=== PATIENT | female | born 1955 | race Caucasian/White ===

== ENCOUNTER 2022-11-07 21:36 | Emergency (ER) | payer OTHER ==
--- OUTSIDE RECORDS SUMMARY | 2022-11-07 21:43 | XMS REPORT | Continuity of Care Document ---
:1955 Author Organization [facility] t Address [address] [place] [address] Care Team Providers Name Role Phone Kayce Sotelo Attending Clinician Unavailable Lawrence Attending Clinician Unavailable Tate Longoria Attending Clinician [phone] CLAUS KING Attending Clinician Unavailable Cruz Durbin Attending Clinician Unavailable Lawrence Admitting Clinician Unavailable Physician, No Primary or Family Admitting Clinician Unavaila ble Payers Payer Name Policy Type Policy Effective Date Expiration Date Sour ce Number [facility] 2 [id number] [facility] MEDICARE B-[place]: [id number] 2021 [employer] 00:00:00 KARIN [place] [id number] 2022 [facility] 00:00:00 STAR (MEDICAID HMO) UMR [id number] AETNA 53 [id number] 2011 [facility] 00:00:00 [facility] AETNA 53 [id number] [facility] Problems Condition Condition Condition Status Onset Resolution Last Treating Co mments Source Name Details Category Date Date Treatment Clinician Date Osteoarthr Osteoarthr Problem Active A zalea itis of itis of 6-17 Orthope left knee Left Knee 00:00: dic joint Joint 00 Sports Medicin e 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 8-08 Or thope sthesis sthesis 00:00: dic 00 Sports Medicin e Prolapsed Prolapsed Problem Active Aza daniel lumbar Lumbar 8-08 Orthope interverte Interverte 00:00: di c bral disc bral Disc 00 Spor ts Medicin e Displaceme Displaceme Problem Active A zalea nt of nt of 8-08 Orthope lumbar Lumbar 00:00: dic interverte Interverte 00 Sp orts bral disc bral Disc 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 Myelopathy Carpal Carpal Problem Active 2014-10 Pam tunnel 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 00:00: dic 00 Sports Medicin e Osteoarthr Osteoarthr Problem Active 2014-10 A zalea osis of osis of 0-13 Orthope the the 00:00: dic carpometac Carpometac 00 Sp orts arpal arpal Medicin joint of Joint of e the thumb the Thumb 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 a bone cyst Bone Cyst 0-13 Orth ope 00:00: dic 00 Sports Medicin e Sleep Sleep Problem Active Pam apnea Apnea 7-27 Orthope 00:00: dic 00 Sports Medicin e Degenerati Degenerati Problem Active A zalea ve joint ve Joint 2-12 Orthop e disease of Disease of 00:00: di c hand Hand 00 Sports Medicin e Epicondyli Epicondyli Problem Active 2011-10 A zalea tis tis 0-11 Orthope 00:00: dic 00 Sports Medicin e Synovitis Synovitis Problem Active Aza daniel and and 9-20 Orthope tenosynovi Tenosynovi 00:00: di c tis tis 00 Sports Medicin e Ganglion Ganglion Problem Active Azale a of wrist of Wrist 9-20 Orthop e 00:00: dic 00 Sports Medicin e [id number] Bronchitis Problem Com mon [facility] - [facility] [id number] Anxiety Problem Common [facility] Allergic Non-season Problem Com mon rhinitis al [id number] Other Problem Common obesity Spirit due to - [facility] excess [facility] [id number] Body mass Problem Com mon index [facility] [BMI] - [facility] 34.0-34.9, [facility] [id number] Low back Problem Comm on pain Spirit [facility] [id number] Nausea Problem Common Spirit [facility] [id number] Mixed Problem Common hyperlipid [facility] emia [facility] [id number] Type 2 Problem Common diabetes [facility] mellitus - [facility] with [facility] Center long-term current use of insulin [id number] Mixed Problem Common stress and Spirit urge - [facility] urinary [facility] [id number] Productive Problem Com mon cough [facility] [id number] Other Problem Common chronic [facility] pain - [facility] [id number] Wheezing Problem Commo n [facility] [id number] Essential Problem Comm on hypertensi Spirit on [facility] [id number] Gastroesop Problem Co mmon hageal Spirit reflux - [facility] disease [facility] esophagiti Medica l s [place] [id number] 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[facility] major [facility] disorder, [facility] d whether recurrent [id number] Seasonal Problem Comm on allergic Spirit rhinitis, - [facility] unspecifie [facility] [id number] Upper Problem Common respirator Spirit y tract - [facility] infection, [facility] [place] Allergies, Adverse Reactions, Alerts Allergy Allergy Status Severity Reaction(s) Onset Inactive Treating Comm ents Source Name Type Date Date Clinician Penicill DA Active MO VOMITING/PAT HC A ins LUCINATION 06-23 Pearla n 00:00: d [facility] Sulfa DA Active MO HIVES AND [facility] (Sulfona EVEN PASSED 06-23 Pea rlan mide OUT 00:00: d [facility] codeine DA Active MO HALLUCINATE/ 2015-0 [facility] VOMITING 06-23 [place]lan 00:00: d 00 Medical Center penicill DA Active MO HIVES/HALLUC HC A in G INATION/VOMI 06-23 Pear swathi TING 00:00: d 00 [facility] meloxica DA Active MO 2014-0 [facility] m 06-23 [place] 00:00: d 00 Medical Center meloxica DA Active MO FEELS [facility] m WEIRD/VOMITI 06-23 Pear swathi NG 00:00: d 00 Medical Center Mobic Allergy Active Pam to 05 Orthope substanc 00:00: dic e 00 Sports Medicin e Codeine Allergy Active Pam to 07-12 Orthope substanc 00:00: dic e 00 Sports Medicin e Macrodan Allergy Active Pam tin to 07-12 Orthope substanc 00:00: dic e 00 Sports Medicin e PENICILL Allergy Active Pam IN to 07-12 Orthope substanc 00:00: dic e 00 Sports Medicin e SULFA Allergy Active Pam (SULFONA to 07-12 Orthope MIDE substanc 00:00: dic ANTIBIOT e 00 Sports ICS) Medicin e nitrofur nitrofur Active Unknown Commo n antoin antoin [facility] codeine codeine Active Hallucinatio Co mmon n [facility] Sulfona Sulfona Active Unknown Commo n mide mide Spirit (substan ([facility] ce) ce) [facility] penicill penicill Active nausea and Co mmon amine amine vomiting [facility] meloxica meloxica Active nausea and Co mmon m m vomiting [facility] Social History Social Habit Start Date Stop Date Quantity Comments Source History of Tobacco Use Co mmon [facility] Sex Assigned At Com mon [facility] Smoking Status Start Date Stop Date Source Never Smoker Common [facility] Medications Ordered Filled Start Stop Current Ordering Indication Dosage Frequency Signature Comments Components Source Medication Medication Date Date Medication? Clinician (SIG) Name Name methylPREDN methylPREDN 2021- No QD methylPRED ISolone 4 ISolone 4 03-31 06-14 NISolone 4 MG MG 00:00: 00:00 MG 00 :00 Azithromyci Azithromyci 2-0 2- No QD Azithromyc n 250 MG n 250 MG 03-31 in 250 MG 00:00: 00:00 00 :00 Livalo 2 MG Livalo 2 MG 2020-0 No 1{table QD Livalo 2 9-16 t} MG 00:00: 00 Sertraline Sertraline 2020-0 No 1{table QD Sertraline HCl 50 MG HCl 50 MG 9-16 t} HCl 50 MG 00:00: 00 Sertraline Sertraline 2020-0 No 1{table QD Sertraline HCl 50 MG HCl 50 MG 9-16 t} HCl 50 MG 00:00: 00 Livalo 2 MG Livalo 2 MG 2020-0 No 1{table QD Livalo 2 9-16 t} MG 00:00: 00 Sertraline Sertraline 2020-0 No 1{table QD Sertraline HCl 50 MG HCl 50 MG 9-16 t} HCl 50 MG 00:00: 00 Livalo 2 MG Livalo 2 MG 2020-0 No 1{table QD Livalo 2 9-16 t} MG 00:00: 00 Sertraline Sertraline 2020-0 No 1{table QD HCl 50 MG HCl 50 MG 9-16 t} 00:00: 00 Livalo 2 MG Livalo 2 MG 2020-0 No 1{table QD 9-16 t} 00:00: 00 Losartan Losartan 2020-0 No 1{table QD Losartan Potassium Potassium 7-22 t} Potassium 25 MG 25 MG 00:00: 25 MG 00 Losartan Losartan 2020-0 No 1{table QD Losartan Potassium Potassium 7-22 t} Potassium 25 MG 25 MG 00:00: 25 MG 00 Omeprazole Omeprazole 2020-0 No QD Omeprazole 20 MG 20 MG 6-30 20 MG 00:00: 00 Omeprazole Omeprazole 2020-0 No QD Omeprazole 20 MG 20 MG 6-30 20 MG 00:00: 00 Omeprazole Omeprazole 2020-0 No QD Omeprazole 20 MG 20 MG 6-30 20 MG 00:00: 00 Omeprazole Omeprazole 2020-0 No QD Omeprazole 20 MG 20 MG 6-30 20 MG 00:00: 00 Omeprazole Omeprazole 2020-0 No QD Omeprazole 20 MG 20 MG 6-30 20 MG 00:00: 00 Omeprazole Omeprazole 2020-0 No QD Omeprazole 20 MG 20 MG 6-30 20 MG 00:00: 00 Omeprazole Omeprazole 1-0 No QD Omeprazole 20 MG 20 MG 6-30 20 MG 00:00: 00 Omeprazole Omeprazole 1-0 No QD 20 MG 20 MG 6-30 00:00: 00 Omeprazole Omeprazole 1-0 No QD Omeprazole 20 MG 20 MG 6-30 20 MG 00:00: 00 Omeprazole Omeprazole 1-0 No QD Omeprazole 20 MG 20 MG 6-30 20 MG 00:00: 00 Omeprazole Omeprazole 2020-0 No QD Omeprazole 20 MG 20 MG 6-30 20 MG 00:00: 00 Omeprazole Omeprazole 1-0 No QD Omeprazole 20 MG 20 MG 6-30 20 MG 00:00: 00 Omeprazole Omeprazole 1-0 No QD Omeprazole 20 MG 20 MG 6-30 20 MG 00:00: 00 Omeprazole Omeprazole 2020-0 No QD Omeprazole 20 MG 20 MG 6-30 20 MG 00:00: 00 Omeprazole Omeprazole 1-0 No QD Omeprazole 20 MG 20 MG 6-30 20 MG 00:00: 00 Omeprazole Omeprazole 1-0 No QD Omeprazole 20 MG 20 MG 6-30 20 MG 00:00: 00 Omeprazole Omeprazole 1-0 No QD Omeprazole 20 MG 20 MG 6-30 20 MG 00:00: 00 Omeprazole Omeprazole 1-0 No QD Omeprazole 20 MG 20 MG 6-30 20 MG 00:00: 00 Omeprazole Omeprazole 1-0 No QD Omeprazole 20 MG 20 MG 6-30 20 MG 00:00: 00 Omeprazole Omeprazole 1-0 No QD Omeprazole 20 MG 20 MG 6-30 20 MG 00:00: 00 Promethazin Promethazin 2020- No 10{ml_a TID Promethazi e HCl 6.25 e HCl 6.25 630 07-07 s_neede ne HCl MG/5ML MG/5ML 00:00: 00:00 d} 6.25 00 :00 MG/5ML Promethazin Promethazin 0 2020- No 10{ml_a TID Promethazi e HCl 6.25 e HCl 6.25 6-30 07- s_neede ne HCl MG/5ML MG/5ML 00:00: 00:00 d} 6.25 00 :00 MG/5ML Azithromyci Azithromyci 0 2020- No QD Azithromyc n 250 MG n 250 MG 04-22 in 250 MG 00:00: 00:00 00 :00 Azithromyci Azithromyci 2020- No QD Azithromyc n 250 MG n 250 MG 04-22 in 250 MG 00:00: 00:00 00 :00 Cefdinir Cefdinir 2020- No Cefdinir 300 MG 300 MG 03-30 300 MG 00:00: 00:00 00 :00 Cefdinir Cefdinir 2020- No Cefdinir 300 MG 300 MG 03-30 300 MG 00:00: 00:00 00 :00 Promethazin Promethazin 2020- No 10{ml_a TID Promethazi e HCl 6.25 e HCl 6.25 6- s_neede ne HCl MG/5ML MG/5ML 00:00: 00:00 d} 6.25 00 :00 MG/5ML Ondansetron Ondansetron 2020-0 No 1{table Ondansetro HCl 4 MG HCl 4 MG 5-26 t} n HCl 4 MG 00:00: 00 Lisinopril Lisinopril 2020-0 No 1{table QD Lisinopril 5 MG 5 MG 5-26 t} 5 MG 00:00: 00 Lisinopril Lisinopril 2020-0 No 1{table QD Lisinopril 5 MG 5 MG 5-26 t} 5 MG 00:00: 00 Ondansetron Ondansetron 2020-0 No 1{table Ondansetro HCl 4 MG HCl 4 MG 5-26 t} n HCl 4 MG 00:00: 00 Lisinopril Lisinopril 2020-0 No 1{table QD Lisinopril 5 MG 5 MG 5-26 t} 5 MG 00:00: 00 Ondansetron Ondansetron 2020-0 No 1{table Ondansetro HCl 4 MG HCl 4 MG 5-26 t} n HCl 4 MG 00:00: 00 Ondansetron Ondansetron 1-0 No 1{table Ondansetro HCl 4 MG HCl 4 MG 5-26 t} n HCl 4 MG 00:00: 00 Ondansetron Ondansetron 1-0 No 1{table Ondansetro HCl 4 MG HCl 4 MG 5-26 t} n HCl 4 MG 00:00: 00 Ondansetron Ondansetron 1-0 No 1{table Ondansetro HCl 4 MG HCl 4 MG 5-26 t} n HCl 4 MG 00:00: 00 Ondansetron Ondansetron 1-0 No 1{table Ondansetro HCl 4 MG HCl 4 MG 5-26 t} n HCl 4 MG 00:00: 00 Ondansetron Ondansetron 1-0 No 1{table Ondansetro HCl 4 MG HCl 4 MG 5-26 t} n HCl 4 MG 00:00: 00 Ondansetron Ondansetron 1-0 No 1{table HCl 4 MG HCl 4 MG 5-26 t} 00:00: 00 Ondansetron Ondansetron 1-0 No 1{table Ondansetro HCl 4 MG HCl 4 MG 5-26 t} n HCl 4 MG 00:00: 00 Ondansetron Ondansetron 1-0 No 1{table Ondansetro HCl 4 MG HCl 4 MG 5-26 t} n HCl 4 MG 00:00: 00 Ondansetron Ondansetron 1-0 No 1{table Ondansetro HCl 4 MG HCl 4 MG 5-26 t} n HCl 4 MG 00:00: 00 Ondansetron Ondansetron 2021-0 No 1{table Ondansetro HCl 4 MG HCl 4 MG 5-26 t} n HCl 4 MG 00:00: 00 Ondansetron Ondansetron 2021-0 No 1{table Ondansetro HCl 4 MG HCl 4 MG 5-26 t} n HCl 4 MG 00:00: 00 Ondansetron Ondansetron 2021-0 No 1{table Ondansetro HCl 4 MG HCl 4 MG 5-26 t} n HCl 4 MG 00:00: 00 Ondansetron Ondansetron 2020-0 No 1{table Ondansetro HCl 4 MG HCl 4 MG 5-26 t} n HCl 4 MG 00:00: 00 Ondansetron Ondansetron 2020-0 No 1{table Ondansetro HCl 4 MG HCl 4 MG 5-26 t} n HCl 4 MG 00:00: 00 Ondansetron Ondansetron 2020-0 No 1{table Ondansetro HCl 4 MG HCl 4 MG 5-26 t} n HCl 4 MG 00:00: 00 Ondansetron Ondansetron 2020-0 No 1{table Ondansetro HCl 4 MG HCl 4 MG 5-26 t} n HCl 4 MG 00:00: 00 Ondansetron Ondansetron 2020-0 No 1{table Ondansetro HCl 4 MG HCl 4 MG 5-26 t} n HCl 4 MG 00:00: 00 Ondansetron Ondansetron 2020-0 No 1{table Ondansetro HCl 4 MG HCl 4 MG 5-26 t} n HCl 4 MG 00:00: 00 Ondansetron Ondansetron 2020-0 No 1{table Ondansetro HCl 4 MG HCl 4 MG 5-26 t} n HCl 4 MG 00:00: 00 Lisinopril Lisinopril 2020- No 1{table QD Lisinopril 5 MG 5 MG 5-26 t} 5 MG 00:00: 00 diclofenac diclofenac 2017-10 No diclofenac Pam sodium 75 sodium 75 1-10 sodium 75 Orthope mg mg 00:00: mg dic tablet,mikal tablet,mikal 00 tablet,del Sports yed release yed release ayed M edicin TAKE ONE TAKE ONE release e TABLET BY TABLET BY TAKE ONE MOUTH TWICE MOUTH TWICE TABLET BY A DAY A DAY MOUTH TWICE A DAY diclofenac diclofenac 2017-10 No diclofenac Pam sodium 75 sodium 75 1-10 sodium 75 Orthope mg mg 00:00: mg dic tablet,mikal tablet,mikal 00 tablet,del Sports yed release yed release ayed M edicin TAKE ONE TAKE ONE release e TABLET BY TABLET BY TAKE ONE MOUTH TWICE MOUTH TWICE TABLET BY A DAY A DAY MOUTH TWICE A DAY Medrol 4 mg Medrol 4 mg No Medrol 4 Pam tablet TAKE tablet TAKE 8-08 mg tablet Orthope TABLETS TABLETS 00:00: TAKE d ic DIRECTED DIRECTED 00 TABLETS S ports DIRECTED Medicin e Mobic 7.5 Mobic 7.5 No Mobic 7.5 Pam mg tablet mg tablet 8-08 mg tablet Orthope TAKE 1 TAKE 1 00:00: TAKE 1 dic TABLET BID TABLET BID 00 TABLET BID Sports WITH FOOD WITH FOOD WITH FOOD Medicin AFTER AFTER AFTER e STERIODS STERIODS STERIODS ARE ARE ARE COMPLETED COMPLETED COMPLETED Medrol 4 mg Medrol 4 mg No Medrol 4 Pma tablet TAKE tablet TAKE 8-08 mg tablet Orthope TABLETS TABLETS 00:00: TAKE d ic DIRECTED DIRECTED 00 TABLETS S ports DIRECTED Medicin e Mobic 7.5 Mobic 7.5 No Mobic 7.5 Pam mg tablet mg tablet 8-08 mg tablet Orthope TAKE 1 TAKE 1 00:00: TAKE 1 dic TABLET BID TABLET BID 00 TABLET BID Sports WITH FOOD WITH FOOD WITH FOOD Medicin AFTER AFTER AFTER e STERIODS STERIODS STERIODS ARE ARE ARE COMPLETED COMPLETED COMPLETED Nexium Nexium No Nexium Pam Packet 10 Packet 10 7-23 Packet 10 Orthope mg granules mg granules 00:00: mg dic delayed delayed 00 granules Sport s release for release for delayed Medicin susp RX by susp RX by release e other other MD for susp RX by other Nextrino Nexium No Nexium Pam Packet 10 Packet 10 7-23 Packet 10 Orthope mg granules mg granules 00:00: mg dic delayed delayed 00 granules Sport s release for release for delayed Medicin susp RX by susp RX by release e other MD noim TINSLEY for susp RX by other Livalo 1 mg Livalo 1 mg No Livalo 1 Pam tablet RX tablet RX 9-19 mg tablet Orthope by other MD by other 00:00: RX by dic 00 other MD Edil english metaxalone metaxalone No metaxalone Pam 800 mg 800 mg 9-19 800 mg Orthope tablet RX tablet RX 00:00: tablet RX dic by other MD by nomi TINSLEY 00 by other Edil english Livalo 1 mg Livalo 1 mg 2012-0 No Livalo 1 Pam tablet RX tablet RX 9-19 mg tablet Orthope by other MD by other MD 00:00: RX by dic 00 other MD Edil english metaxalone metaxalone 0 No metaxalone Pam 800 mg 800 mg 9-19 800 mg Orthope tablet RX tablet RX 00:00: tablet RX dic by other MD by other 00 by other Sports MD Kianna english Acetaminoph Acetaminoph No Acetaminop en en hen NexIUM 24HR NexIUM 24HR No 1{capsu QD NexIUM 20 MG 20 MG le} 24HR 20 MG Biotin 5000 Biotin 5000 No Biotin 5000 Oxybutynin Oxybutynin No 1{table QD Oxybutynin Chloride ER Chloride ER t} Chloride 10 MG 10 MG ER 10 MG Albuterol Albuterol No 2{puff_ 6xD Albuterol Sulfate 108 Sulfate 108 as_need Sulfate (90 Base) (90 Base) ed} 108 (90 MCG/ACT MCG/ACT Base) MCG/ACT Magnesium Magnesium No Magnesium 400 MG 400 MG 400 MG hydroCHLORO hydroCHLORO No 1{table QD hydroCHLOR thiazide 25 thiazide 25 t_in_th Othiazide MG MG e_morni 25 MG ng} Metoprolol Metoprolol No 1{table QD Metoprolol Succinate Succinate t} Succinate ER 100 MG ER 100 MG ER 100 MG Benzonatate Benzonatate No 1{capsu TID Benzonatat 100 MG 100 MG le_as_n e 100 MG eeded} Sertraline Sertraline No 1{table QD Sertraline HCl 100 MG HCl 100 MG t} HCl 100 MG Elderberry Elderberry No Elderberry Cyclobenzap Cyclobenzap No 1{table Cyclobenza rine HCl 10 rine HCl 10 t_at_be marcos HCl MG MG dtime_a 10 MG s_neede d} metFORMIN metFORMIN No 1{table BID metFORMIN HCl 500 MG HCl 500 MG t_with_ HCl 500 MG a_meal} Zinc 50 MG Zinc 50 MG No 1{table QD Zinc 50 MG t} Simvastatin Simvastatin No 1{table QD Simvastati 20 MG 20 MG t_in_th n 20 MG e_eveni ng} Vitamin C Vitamin C No 1{table QD Vitamin C 500 MG 500 MG t} 500 MG Cyclobenzap Cyclobenzap No 1{table Cyclobenza rine HCl 10 rine HCl 10 t_at_be marcos HCl MG MG dtime_a 10 MG s_neede d} Vitamin C Vitamin C No 1{table QD Vitamin C 500 MG 500 MG t} 500 MG Zinc 50 MG Zinc 50 MG No 1{table QD Zinc 50 MG t} metFORMIN metFORMIN No 1{table BID metFORMIN HCl 500 MG HCl 500 MG t_with_ HCl 500 MG a_meal} Albuterol Albuterol No 2{puff_ 6xD Albuterol Sulfate 108 Sulfate 108 as_need Sulfate (90 Base) (90 Base) ed} 108 (90 MCG/ACT MCG/ACT Base) MCG/ACT Metoprolol Metoprolol No 1{table QD Metoprolol Succinate Succinate t} Succinate ER 100 MG ER 100 MG ER 100 MG hydroCHLORO hydroCHLORO No 1{table QD hydroCHLOR thiazide 25 thiazide 25 t_in_th Othiazide MG MG e_morni 25 MG ng} Acetaminoph Acetaminoph No Acetaminop en en hen Elderberry Elderberry No Elderberry Biotin 5000 Biotin 5000 No Biotin 5000 Sertraline Sertraline No 1{table QD Sertraline HCl 100 MG HCl 100 MG t} HCl 100 MG Benzonatate Benzonatate No 1{capsu TID Benzonatat 100 MG 100 MG le_as_n e 100 MG eeded} Magnesium Magnesium No Magnesium 400 MG 400 MG 400 MG Cyclobenzap Cyclobenzap No 1{table Cyclobenza rine HCl 10 rine HCl 10 t_at_be marcos HCl MG MG dtime_a 10 MG s_neede d} Vitamin C Vitamin C No 1{table QD Vitamin C 500 MG 500 MG t} 500 MG Zinc 50 MG Zinc 50 MG No 1{table QD Zinc 50 MG t} metFORMIN metFORMIN No 1{table BID metFORMIN HCl 500 MG HCl 500 MG t_with_ HCl 500 MG a_meal} Albuterol Albuterol No 2{puff_ 6xD Albuterol Sulfate 108 Sulfate 108 as_need Sulfate (90 Base) (90 Base) ed} 108 (90 MCG/ACT MCG/ACT Base) MCG/ACT Metoprolol Metoprolol No 1{table QD Metoprolol Succinate Succinate t} Succinate ER 100 MG ER 100 MG ER 100 MG hydroCHLORO hydroCHLORO No 1{table QD hydroCHLOR thiazide 25 thiazide 25 t_in_th Othiazide MG MG e_morni 25 MG ng} Acetaminoph Acetaminoph No Acetaminop en en hen Elderberry Elderberry No Elderberry Biotin 5000 Biotin 5000 No Biotin 5000 Sertraline Sertraline No 1{table QD Sertraline HCl 100 MG HCl 100 MG t} HCl 100 MG Benzonatate Benzonatate No 1{capsu TID Benzonatat 100 MG 100 MG le_as_n e 100 MG eeded} Magnesium Magnesium No Magnesium 400 MG 400 MG 400 MG Vitamin C Vitamin C No 1{table QD Vitamin C 500 MG 500 MG t} 500 MG Zinc 50 MG Zinc 50 MG No 1{table QD Zinc 50 MG t} Albuterol Albuterol No 2{puff_ 6xD Albuterol Sulfate 108 Sulfate 108 as_need Sulfate (90 Base) (90 Base) ed} 108 (90 MCG/ACT MCG/ACT Base) MCG/ACT metFORMIN metFORMIN No 1{table BID metFORMIN HCl 500 MG HCl 500 MG t_with_ HCl 500 MG a_meal} hydroCHLORO hydroCHLORO No 1{table QD hydroCHLOR thiazide 25 thiazide 25 t_in_th Othiazide MG MG e_morni 25 MG ng} Metoprolol Metoprolol No 1{table QD Metoprolol Succinate Succinate t} Succinate ER 100 MG ER 100 MG ER 100 MG Acetaminoph Acetaminoph No Acetaminop en en hen Elderberry Elderberry No Elderberry Biotin 5000 Biotin 5000 No Biotin 5000 Magnesium Magnesium No Magnesium 400 MG 400 MG 400 MG Sertraline Sertraline No 1{table QD Sertraline HCl 100 MG HCl 100 MG t} HCl 100 MG Benzonatate Benzonatate No 1{capsu TID Benzonatat 100 MG 100 MG le_as_n e 100 MG eeded} Cyclobenzap Cyclobenzap No 1{table Cyclobenza rine HCl 10 rine HCl 10 t_at_be marcos HCl MG MG dtime_a 10 MG s_neede d} Vitamin C Vitamin C No 1{table QD Vitamin C 500 MG 500 MG t} 500 MG Zinc 50 MG Zinc 50 MG No 1{table QD Zinc 50 MG t} Albuterol Albuterol No 2{puff_ 6xD Albuterol Sulfate 108 Sulfate 108 as_need Sulfate (90 Base) (90 Base) ed} 108 (90 MCG/ACT MCG/ACT Base) MCG/ACT metFORMIN metFORMIN No 1{table BID metFORMIN HCl 500 MG HCl 500 MG t_with_ HCl 500 MG a_meal} Metoprolol Metoprolol No 1{table QD Metoprolol Succinate Succinate t} Succinate ER 100 MG ER 100 MG ER 100 MG hydroCHLORO hydroCHLORO No 1{table QD hydroCHLOR thiazide 25 thiazide 25 t_in_th Othiazide MG MG e_morni 25 MG ng} Acetaminoph Acetaminoph No Acetaminop en en hen Elderberry Elderberry No Elderberry Biotin 5000 Biotin 5000 No Biotin 5000 Magnesium Magnesium No Magnesium 400 MG 400 MG 400 MG Sertraline Sertraline No 1{table QD Sertraline HCl 100 MG HCl 100 MG t} HCl 100 MG Benzonatate Benzonatate No 1{capsu TID Benzonatat 100 MG 100 MG le_as_n e 100 MG eeded} Cyclobenzap Cyclobenzap No 1{table Cyclobenza rine HCl 10 rine HCl 10 t_at_be marcos HCl MG MG dtime_a 10 MG s_neede d} Vitamin C Vitamin C No 1{table QD Vitamin C 500 MG 500 MG t} 500 MG Diazepam 5 Diazepam 5 No QD Diazepam 5 MG MG MG metFORMIN metFORMIN No metFORMIN HCl 500 MG HCl 500 MG HCl 500 MG Metoprolol Metoprolol No 1{table QD Metoprolol Succinate Succinate t} Succinate ER 100 MG ER 100 MG ER 100 MG Losartan Losartan No 1{table QD Losartan Potassium Potassium t} Potassium 25 MG 25 MG 25 MG Magnesium Magnesium No Magnesium 400 MG 400 MG 400 MG Cyclobenzap Cyclobenzap No 1{table Cyclobenza rine HCl 10 rine HCl 10 t_at_be marcos HCl MG MG dtime_a 10 MG s_neede d} hydrOXYzine hydrOXYzine No 1{table TID hydrOXYzin HCl 50 MG HCl 50 MG t_as_ne e HCl 50 eded} MG Zinc 50 MG Zinc 50 MG No 1{table QD Zinc 50 MG t} Elderberry Elderberry No Elderberry Biotin 5000 Biotin 5000 No Biotin 5000 NexIUM 24HR NexIUM 24HR No 1{capsu QD NexIUM 20 MG 20 MG le} 24HR 20 MG Albuterol Albuterol No 2{puff_ 6xD Albuterol Sulfate 108 Sulfate 108 as_need Sulfate (90 Base) (90 Base) ed} 108 (90 MCG/ACT MCG/ACT Base) MCG/ACT Acetaminoph Acetaminoph No Acetaminop en en hen Benzonatate Benzonatate No 1{capsu TID Benzonatat 100 MG 100 MG le_as_n e 100 MG eeded} hydroCHLORO hydroCHLORO No 1{table QD hydroCHLOR thiazide 25 thiazide 25 t_in_th Othiazide MG MG e_morni 25 MG ng} Oxybutynin Oxybutynin No 1{table QD Oxybutynin Chloride ER Chloride ER t} Chloride 10 MG 10 MG ER 10 MG Sertraline Sertraline No 1{table QD Sertraline HCl 100 MG HCl 100 MG t} HCl 100 MG Cyclobenzap Cyclobenzap No 1{table Cyclobenza rine HCl 10 rine HCl 10 t_at_be marcos HCl MG MG dtime_a 10 MG s_neede d} Zinc 50 MG Zinc 50 MG No 1{table QD Zinc 50 MG t} Biotin 5000 Biotin 5000 No Biotin 5000 Metoprolol Metoprolol No 1{table QD Metoprolol Succinate Succinate t} Succinate ER 100 MG ER 100 MG ER 100 MG Elderberry Elderberry No Elderberry Albuterol Albuterol No 2{puff_ 6xD Albuterol Sulfate 108 Sulfate 108 as_need Sulfate (90 Base) (90 Base) ed} 108 (90 MCG/ACT MCG/ACT Base) MCG/ACT NexIUM 24HR NexIUM 24HR No 1{capsu QD NexIUM 20 MG 20 MG le} 24HR 20 MG hydroCHLORO hydroCHLORO No 1{table QD hydroCHLOR thiazide 25 thiazide 25 t_in_th Othiazide MG MG e_morni 25 MG ng} Benzonatate Benzonatate No 1{capsu TID Benzonatat 100 MG 100 MG le_as_n e 100 MG eeded} Losartan Losartan No 1{table QD Losartan Potassium Potassium t} Potassium 25 MG 25 MG 25 MG hydrOXYzine hydrOXYzine No 1{table TID hydrOXYzin HCl 50 MG HCl 50 MG t_as_ne e HCl 50 eded} MG Vitamin C Vitamin C No 1{table QD Vitamin C 500 MG 500 MG t} 500 MG Sertraline Sertraline No 1{table QD Sertraline HCl 100 MG HCl 100 MG t} HCl 100 MG metFORMIN metFORMIN No metFORMIN HCl 500 MG HCl 500 MG HCl 500 MG Diazepam 5 Diazepam 5 No QD Diazepam 5 MG MG MG Acetaminoph Acetaminoph No Acetaminop en en hen Magnesium Magnesium No Magnesium 400 MG 400 MG 400 MG Oxybutynin Oxybutynin No 1{table QD Oxybutynin Chloride ER Chloride ER t} Chloride 10 MG 10 MG ER 10 MG Zinc 50 MG Zinc 50 MG No 1{table QD Zinc 50 MG t} Oxybutynin Oxybutynin No 1{table QD Oxybutynin Chloride ER Chloride ER t} Chloride 10 MG 10 MG ER 10 MG Biotin 5000 Biotin 5000 No Biotin 5000 Metoprolol Metoprolol No 1{table QD Metoprolol Succinate Succinate t} Succinate ER 100 MG ER 100 MG ER 100 MG Elderberry Elderberry No Elderberry Albuterol Albuterol No 2{puff_ 6xD Albuterol Sulfate 108 Sulfate 108 as_need Sulfate (90 Base) (90 Base) ed} 108 (90 MCG/ACT MCG/ACT Base) MCG/ACT NexIUM 24HR NexIUM 24HR No 1{capsu QD NexIUM 20 MG 20 MG le} 24HR 20 MG hydroCHLORO hydroCHLORO No 1{table QD hydroCHLOR thiazide 25 thiazide 25 t_in_th Othiazide MG MG e_morni 25 MG ng} Benzonatate Benzonatate No 1{capsu TID Benzonatat 100 MG 100 MG le_as_n e 100 MG eeded} Losartan Losartan No 1{table QD Losartan Potassium Potassium t} Potassium 25 MG 25 MG 25 MG hydrOXYzine hydrOXYzine No 1{table TID hydrOXYzin HCl 50 MG HCl 50 MG t_as_ne e HCl 50 eded} MG Sertraline Sertraline No 1{table QD Sertraline HCl 100 MG HCl 100 MG t} HCl 100 MG Cyclobenzap Cyclobenzap No 1{table Cyclobenza rine HCl 10 rine HCl 10 t_at_be marcos HCl MG MG dtime_a 10 MG s_neede d} metFORMIN metFORMIN No metFORMIN HCl 500 MG HCl 500 MG HCl 500 MG Diazepam 5 Diazepam 5 No QD Diazepam 5 MG MG MG Acetaminoph Acetaminoph No Acetaminop en en hen Magnesium Magnesium No Magnesium 400 MG 400 MG 400 MG Vitamin C Vitamin C No 1{table QD Vitamin C 500 MG 500 MG t} 500 MG Zinc 50 MG Zinc 50 MG No 1{table QD t} Oxybutynin Oxybutynin No 1{table QD Chloride ER Chloride ER t} 10 MG 10 MG Biotin 5000 Biotin 5000 No Metoprolol Metoprolol No 1{table QD Succinate Succinate t} ER 100 MG ER 100 MG Elderberry Elderberry No Albuterol Albuterol No 2{puff_ 6xD Sulfate 108 Sulfate 108 as_need (90 Base) (90 Base) ed} MCG/ACT MCG/ACT NexIUM 24HR NexIUM 24HR No 1{capsu QD 20 MG 20 MG le} hydroCHLORO hydroCHLORO No 1{table QD thiazide 25 thiazide 25 t_in_th MG MG e_morni ng} Benzonatate Benzonatate No 1{capsu TID 100 MG 100 MG le_as_n eeded} Losartan Losartan No 1{table QD Potassium Potassium t} 25 MG 25 MG hydrOXYzine hydrOXYzine No 1{table TID HCl 50 MG HCl 50 MG t_as_ne eded} Sertraline Sertraline No 1{table QD HCl 100 MG HCl 100 MG t} Cyclobenzap Cyclobenzap No 1{table rine HCl 10 rine HCl 10 t_at_be MG MG dtime_a s_neede d} metFORMIN metFORMIN No HCl 500 MG HCl 500 MG Diazepam 5 Diazepam 5 No QD MG MG Acetaminoph Acetaminoph No en en Magnesium Magnesium No 400 MG 400 MG Vitamin C Vitamin C No 1{table QD 500 MG 500 MG t} Vitamin C Vitamin C No 1{table QD Vitamin C 500 MG 500 MG t} 500 MG hydrOXYzine hydrOXYzine No 1{table TID hydrOXYzin HCl 50 MG HCl 50 MG t_as_ne e HCl 50 eded} MG Diazepam 5 Diazepam 5 No QD Diazepam 5 MG MG MG NexIUM 24HR NexIUM 24HR No 1{capsu QD NexIUM 20 MG 20 MG le} 24HR 20 MG Biotin 5000 Biotin 5000 No Biotin 5000 Zinc 50 MG Zinc 50 MG No 1{table QD Zinc 50 MG t} Livalo 2 MG Livalo 2 MG No 1{table QD Livalo 2 t} MG Elderberry Elderberry No Elderberry Benzonatate Benzonatate No 1{capsu TID Benzonatat 100 MG 100 MG le_as_n e 100 MG eeded} Acetaminoph Acetaminoph No Acetaminop en en hen hydroCHLORO hydroCHLORO No 1{table QD hydroCHLOR thiazide 25 thiazide 25 t_in_th Othiazide MG MG e_morni 25 MG ng} Cyclobenzap Cyclobenzap No 1{table Cyclobenza rine HCl 10 rine HCl 10 t_at_be marcos HCl MG MG dtime_a 10 MG s_neede d} Albuterol Albuterol No 2{puff_ 6xD Albuterol Sulfate 108 Sulfate 108 as_need Sulfate (90 Base) (90 Base) ed} 108 (90 MCG/ACT MCG/ACT Base) MCG/ACT Losartan Losartan No 1{table QD Losartan Potassium Potassium t} Potassium 25 MG 25 MG 25 MG Oxybutynin Oxybutynin No 1{table QD Oxybutynin Chloride ER Chloride ER t} Chloride 10 MG 10 MG ER 10 MG Sertraline Sertraline No 1{table QD Sertraline HCl 50 MG HCl 50 MG t} HCl 50 MG Magnesium Magnesium No Magnesium 400 MG 400 MG 400 MG metFORMIN metFORMIN No metFORMIN HCl 500 MG HCl 500 MG HCl 500 MG Metoprolol Metoprolol No 1{table QD Metoprolol Succinate Succinate t} Succinate ER 100 MG ER 100 MG ER 100 MG Cyclobenzap Cyclobenzap No 1{table Cyclobenza rine HCl 10 rine HCl 10 t_at_be marcos HCl MG MG dtime_a 10 MG s_neede d} Sertraline Sertraline No 1{table QD Sertraline HCl 100 MG HCl 100 MG t} HCl 100 MG Esomeprazol Esomeprazol No Esomeprazo e Magnesium e Magnesium le 20 MG 20 MG Magnesium 20 MG hydrOXYzine hydrOXYzine No hydrOXYzin HCl 50 MG HCl 50 MG e HCl 50 MG Vitamin C Vitamin C No 1{table QD Vitamin C 500 MG 500 MG t} 500 MG hydrOXYzine hydrOXYzine No 1{table TID hydrOXYzin HCl 50 MG HCl 50 MG t_as_ne e HCl 50 eded} MG Diazepam 5 Diazepam 5 No QD Diazepam 5 MG MG MG NexIUM 24HR NexIUM 24HR No 1{capsu QD NexIUM 20 MG 20 MG le} 24HR 20 MG Biotin 5000 Biotin 5000 No Biotin 5000 Zinc 50 MG Zinc 50 MG No 1{table QD Zinc 50 MG t} Livalo 2 MG Livalo 2 MG No 1{table QD Livalo 2 t} MG Elderberry Elderberry No Elderberry Benzonatate Benzonatate No 1{capsu TID Benzonatat 100 MG 100 MG le_as_n e 100 MG eeded} Acetaminoph Acetaminoph No Acetaminop en en hen hydroCHLORO hydroCHLORO No 1{table QD hydroCHLOR thiazide 25 thiazide 25 t_in_th Othiazide MG MG e_morni 25 MG ng} Cyclobenzap Cyclobenzap No 1{table Cyclobenza rine HCl 10 rine HCl 10 t_at_be marcos HCl MG MG dtime_a 10 MG s_neede d} Albuterol Albuterol No 2{puff_ 6xD Albuterol Sulfate 108 Sulfate 108 as_need Sulfate (90 Base) (90 Base) ed} 108 (90 MCG/ACT MCG/ACT Base) MCG/ACT Losartan Losartan No 1{table QD Losartan Potassium Potassium t} Potassium 25 MG 25 MG 25 MG Oxybutynin Oxybutynin No 1{table QD Oxybutynin Chloride ER Chloride ER t} Chloride 10 MG 10 MG ER 10 MG Sertraline Sertraline No 1{table QD Sertraline HCl 50 MG HCl 50 MG t} HCl 50 MG Magnesium Magnesium No Magnesium 400 MG 400 MG 400 MG metFORMIN metFORMIN No metFORMIN HCl 500 MG HCl 500 MG HCl 500 MG Metoprolol Metoprolol No 1{table QD Metoprolol Succinate Succinate t} Succinate ER 100 MG ER 100 MG ER 100 MG Cyclobenzap Cyclobenzap No 1{table Cyclobenza rine HCl 10 rine HCl 10 t_at_be marcos HCl MG MG dtime_a 10 MG s_neede d} Sertraline Sertraline No 1{table QD Sertraline HCl 100 MG HCl 100 MG t} HCl 100 MG Esomeprazol Esomeprazol No Esomeprazo e Magnesium e Magnesium le 20 MG 20 MG Magnesium 20 MG hydrOXYzine hydrOXYzine No hydrOXYzin HCl 50 MG HCl 50 MG e HCl 50 MG Vitamin C Vitamin C No 1{table QD Vitamin C 500 MG 500 MG t} 500 MG hydrOXYzine hydrOXYzine No 1{table TID hydrOXYzin HCl 50 MG HCl 50 MG t_as_ne e HCl 50 eded} MG Diazepam 5 Diazepam 5 No QD Diazepam 5 MG MG MG NexIUM 24HR NexIUM 24HR No 1{capsu QD NexIUM 20 MG 20 MG le} 24HR 20 MG Biotin 5000 Biotin 5000 No Biotin 5000 Zinc 50 MG Zinc 50 MG No 1{table QD Zinc 50 MG t} Livalo 2 MG Livalo 2 MG No 1{table QD Livalo 2 t} MG Elderberry Elderberry No Elderberry Benzonatate Benzonatate No 1{capsu TID Benzonatat 100 MG 100 MG le_as_n e 100 MG eeded} Acetaminoph Acetaminoph No Acetaminop en en hen hydroCHLORO hydroCHLORO No 1{table QD hydroCHLOR thiazide 25 thiazide 25 t_in_th Othiazide MG MG e_morni 25 MG ng} Cyclobenzap Cyclobenzap No 1{table Cyclobenza rine HCl 10 rine HCl 10 t_at_be marcos HCl MG MG dtime_a 10 MG s_neede d} Albuterol Albuterol No 2{puff_ 6xD Albuterol Sulfate 108 Sulfate 108 as_need Sulfate (90 Base) (90 Base) ed} 108 (90 MCG/ACT MCG/ACT Base) MCG/ACT Losartan Losartan No 1{table QD Losartan Potassium Potassium t} Potassium 25 MG 25 MG 25 MG Oxybutynin Oxybutynin No 1{table QD Oxybutynin Chloride ER Chloride ER t} Chloride 10 MG 10 MG ER 10 MG Sertraline Sertraline No 1{table QD Sertraline HCl 50 MG HCl 50 MG t} HCl 50 MG Magnesium Magnesium No Magnesium 400 MG 400 MG 400 MG metFORMIN metFORMIN No metFORMIN HCl 500 MG HCl 500 MG HCl 500 MG Metoprolol Metoprolol No 1{table QD Metoprolol Succinate Succinate t} Succinate ER 100 MG ER 100 MG ER 100 MG Cyclobenzap Cyclobenzap No 1{table Cyclobenza rine HCl 10 rine HCl 10 t_at_be marcos HCl MG MG dtime_a 10 MG s_neede d} Sertraline Sertraline No 1{table QD Sertraline HCl 100 MG HCl 100 MG t} HCl 100 MG Esomeprazol Esomeprazol No Esomeprazo e Magnesium e Magnesium le 20 MG 20 MG Magnesium 20 MG hydrOXYzine hydrOXYzine No hydrOXYzin HCl 50 MG HCl 50 MG e HCl 50 MG Sertraline Sertraline No 1{table QD Sertraline HCl 50 MG HCl 50 MG t} HCl 50 MG Cyclobenzap Cyclobenzap No 1{table Cyclobenza rine HCl 10 rine HCl 10 t_at_be marcos HCl MG MG dtime_a 10 MG s_neede d} Albuterol Albuterol No 2{puff_ 6xD Albuterol Sulfate 108 Sulfate 108 as_need Sulfate (90 Base) (90 Base) ed} 108 (90 MCG/ACT MCG/ACT Base) MCG/ACT azithromyci azithromyci No azithromyc Pam n 250 mg n 250 mg in 250 mg Or thope tablet TAKE tablet TAKE tablet dic 2 TABLETS 2 TABLETS TAKE 2 Spo rts BY MOUTH BY MOUTH TABLETS BY M edicin TODAY, THEN TODAY, THEN MOUTH e TAKE 1 TAKE 1 TODAY, TABLET TABLET THEN TAKE DAILY FOR 4 DAILY FOR 4 1 TABLET DAYS DAYS DAILY FOR 4 DAYS metFORMIN metFORMIN No metFORMIN HCl 500 MG HCl 500 MG HCl 500 MG Losartan Losartan No Losartan Potassium Potassium Potassium 25 MG 25 MG 25 MG Zinc 50 MG Zinc 50 MG No 1{table QD Zinc 50 MG t} NexIUM 24HR NexIUM 24HR No 1{capsu QD NexIUM 20 MG 20 MG le} 24HR 20 MG Vitamin C Vitamin C No 1{table QD Vitamin C 500 MG 500 MG t} 500 MG Esomeprazol Esomeprazol No Esomeprazo e Magnesium e Magnesium le 20 MG 20 MG Magnesium 20 MG hydrOXYzine hydrOXYzine No hydrOXYzin HCl 50 MG HCl 50 MG e HCl 50 MG Oxybutynin Oxybutynin No 1{table QD Oxybutynin Chloride ER Chloride ER t} Chloride 10 MG 10 MG ER 10 MG hydroCHLORO hydroCHLORO No hydroCHLOR thiazide 25 thiazide 25 Othiazide MG MG 25 MG Biotin 5000 Biotin 5000 No Biotin 5000 benzonatate benzonatate No benzonatat Pam 100 mg 100 mg e 100 mg [facility] capsule capsule capsule dic TAKE ONE TO TAKE ONE TO TAKE ONE Sports TWO TWO TO TWO Medicin CAPSULES BY CAPSULES BY CAPSULES e MOUTH EVERY MOUTH EVERY BY MOUTH 8 HOURS 8 HOURS EVERY 8 NEEDED FOR NEEDED FOR HOURS COUGHING COUGHING NEEDED FOR COUGHING Acetaminoph Acetaminoph No Acetaminop en en hen hydrOXYzine hydrOXYzine No 1{table TID hydrOXYzin HCl 50 MG HCl 50 MG t_as_ne e HCl 50 eded} MG Elderberry Elderberry No Elderberry Metoprolol Metoprolol No 1{table QD Metoprolol Succinate Succinate t} Succinate ER 100 MG ER 100 MG ER 100 MG Benzonatate Benzonatate No 1{capsu TID Benzonatat 100 MG 100 MG le_as_n e 100 MG eeded} Livalo 2 MG Livalo 2 MG No 1{table QD Livalo 2 t} MG Diazepam 5 Diazepam 5 No QD Diazepam 5 MG MG MG Sertraline Sertraline No 1{table QD Sertraline HCl 100 MG HCl 100 MG t} HCl 100 MG Magnesium Magnesium No Magnesium 400 MG 400 MG 400 MG Sertraline Sertraline No 1{table QD Sertraline HCl 50 MG HCl 50 MG t} HCl 50 MG bromphenira bromphenira No bromphenir Pam mine-pseudo mine-pseudo amine-pseu [facility] ephedrine-D ephedrine-D doephedrin dic M 2 mg-30 M 2 mg-30 e-DM 2 Spo rts mg-10 mg/5 mg-10 mg/5 mg-30 Me dicin mL oral mL oral mg-10 mg/5 e syrup TAKE syrup TAKE mL oral 10 ML BY 10 ML BY syrup TAKE MOUTH EVERY MOUTH EVERY 10 ML BY 4 HOURS 4 HOURS MOUTH NEEDED. DO NEEDED. DO EVERY 4 NOT EXCEED NOT EXCEED HOURS 6 DOSES A 6 DOSES A NEEDED. DO DAY DAY NOT EXCEED 6 DOSES A DAY Cyclobenzap Cyclobenzap No 1{table Cyclobenza rine HCl 10 rine HCl 10 t_at_be marcos HCl MG MG dtime_a 10 MG s_neede d} Albuterol Albuterol No 2{puff_ 6xD Albuterol Sulfate 108 Sulfate 108 as_need Sulfate (90 Base) (90 Base) ed} 108 (90 MCG/ACT MCG/ACT Base) MCG/ACT metFORMIN metFORMIN No metFORMIN HCl 500 MG HCl 500 MG HCl 500 MG Losartan Losartan No Losartan Potassium Potassium Potassium 25 MG 25 MG 25 MG Zinc 50 MG Zinc 50 MG No 1{table QD Zinc 50 MG t} NexIUM 24HR NexIUM 24HR No 1{capsu QD NexIUM 20 MG 20 MG le} 24HR 20 MG Vitamin C Vitamin C No 1{table QD Vitamin C 500 MG 500 MG t} 500 MG Esomeprazol Esomeprazol No Esomeprazo e Magnesium e Magnesium le 20 MG 20 MG Magnesium 20 MG hydrOXYzine hydrOXYzine No hydrOXYzin HCl 50 MG HCl 50 MG e HCl 50 MG Oxybutynin Oxybutynin No 1{table QD Oxybutynin Chloride ER Chloride ER t} Chloride 10 MG 10 MG ER 10 MG cefdinir cefdinir No cefdinir Aza daniel 300 mg 300 mg 300 mg [facility] capsule capsule capsule dic TAKE ONE TAKE ONE TAKE ONE Spo rts CAPSULE BY CAPSULE BY CAPSULE BY Medicin MOUTH EVERY MOUTH EVERY MOUTH e 12 HOURS 12 HOURS EVERY 12 FOR 10 DAYS FOR 10 DAYS HOURS FOR 10 DAYS hydroCHLORO hydroCHLORO No hydroCHLOR thiazide 25 thiazide 25 Othiazide MG MG 25 MG Biotin 5000 Biotin 5000 No Biotin 5000 Acetaminoph Acetaminoph No Acetaminop en en hen hydrOXYzine hydrOXYzine No 1{table TID hydrOXYzin HCl 50 MG HCl 50 MG t_as_ne e HCl 50 eded} MG Elderberry Elderberry No Elderberry Metoprolol Metoprolol No 1{table QD Metoprolol Succinate Succinate t} Succinate ER 100 MG ER 100 MG ER 100 MG Benzonatate Benzonatate No 1{capsu TID Benzonatat 100 MG 100 MG le_as_n e 100 MG eeded} Livalo 2 MG Livalo 2 MG No 1{table QD Livalo 2 t} MG Diazepam 5 Diazepam 5 No QD Diazepam 5 MG MG MG Sertraline Sertraline No 1{table QD Sertraline HCl 100 MG HCl 100 MG t} HCl 100 MG cyclobenzap cyclobenzap No cyclobenza Pam rine 10 mg rine 10 mg marcos 10 [facility] tablet TAKE tablet TAKE mg tablet dic 1 TABLET AT 1 TABLET AT TAKE 1 Sports BEDTIME BEDTIME TABLET AT Medicin NEEDED BY NEEDED BY BEDTIME e MOUTH ONCE MOUTH ONCE NEEDED BY A DAY FOR A DAY FOR MOUTH ONCE 30 DAY(S) 30 DAY(S) A DAY FOR 30 DAY(S) Magnesium Magnesium No Magnesium 400 MG 400 MG 400 MG Sertraline Sertraline No 1{table QD Sertraline HCl 50 MG HCl 50 MG t} HCl 50 MG Cyclobenzap Cyclobenzap No 1{table Cyclobenza rine HCl 10 rine HCl 10 t_at_be marcos HCl MG MG dtime_a 10 MG s_neede d} Albuterol Albuterol No 2{puff_ 6xD Albuterol Sulfate 108 Sulfate 108 as_need Sulfate (90 Base) (90 Base) ed} 108 (90 MCG/ACT MCG/ACT Base) MCG/ACT metFORMIN metFORMIN No metFORMIN HCl 500 MG HCl 500 MG HCl 500 MG Losartan Losartan No Losartan Potassium Potassium Potassium 25 MG 25 MG 25 MG Zinc 50 MG Zinc 50 MG No 1{table QD Zinc 50 MG t} NexIUM 24HR NexIUM 24HR No 1{capsu QD NexIUM 20 MG 20 MG le} 24HR 20 MG Vitamin C Vitamin C No 1{table QD Vitamin C 500 MG 500 MG t} 500 MG Esomeprazol Esomeprazol No Esomeprazo e Magnesium e Magnesium le 20 MG 20 MG Magnesium 20 MG esomeprazol esomeprazol No esomeprazo Pam e magnesium e magnesium le O [facility] 20 mg 20 mg magnesium dic capsule,del capsule,del 20 mg Sports ayed ayed capsule,de Medicin release release layed e TAKE 1 TAKE 1 release CAPSULE BY CAPSULE BY TAKE 1 MOUTH EVERY MOUTH EVERY CAPSULE BY DAY DAY MOUTH EVERY DAY hydrOXYzine hydrOXYzine No hydrOXYzin HCl 50 MG HCl 50 MG e HCl 50 MG Oxybutynin Oxybutynin No 1{table QD Oxybutynin Chloride ER Chloride ER t} Chloride 10 MG 10 MG ER 10 MG hydroCHLORO hydroCHLORO No hydroCHLOR thiazide 25 thiazide 25 Othiazide MG MG 25 MG Biotin 5000 Biotin 5000 No Biotin 5000 Acetaminoph Acetaminoph No Acetaminop en en hen hydrOXYzine hydrOXYzine No 1{table TID hydrOXYzin HCl 50 MG HCl 50 MG t_as_ne e HCl 50 eded} MG Elderberry Elderberry No Elderberry Metoprolol Metoprolol No 1{table QD Metoprolol Succinate Succinate t} Succinate ER 100 MG ER 100 MG ER 100 MG Benzonatate Benzonatate No 1{capsu TID Benzonatat 100 MG 100 MG le_as_n e 100 MG eeded} Livalo 2 MG Livalo 2 MG No 1{table QD Livalo 2 t} MG etodolac etodolac No etodolac Aza daniel 400 mg 400 mg 400 mg [facility] tablet TAKE tablet TAKE tablet dic 1 TABLET BY 1 TABLET BY TAKE 1 Sports MOUTH TWICE MOUTH TWICE TABLET BY Medicin A DAY A DAY MOUTH e DIRECTED DIRECTED TWICE A DAY DIRECTED Diazepam 5 Diazepam 5 No QD Diazepam 5 MG MG MG Sertraline Sertraline No 1{table QD Sertraline HCl 100 MG HCl 100 MG t} HCl 100 MG Magnesium Magnesium No Magnesium 400 MG 400 MG 400 MG Acetaminoph Acetaminoph No Acetaminop en en hen Zinc 50 MG Zinc 50 MG No 1{table QD Zinc 50 MG t} Magnesium Magnesium No Magnesium 400 MG 400 MG 400 MG hydrOXYzine hydrOXYzine No 1{table TID hydrOXYzin HCl 50 MG HCl 50 MG t_as_ne e HCl 50 eded} MG Elderberry Elderberry No Elderberry Livalo 2 MG Livalo 2 MG No 1{table QD Livalo 2 t} MG Metoprolol Metoprolol No 1{table QD Metoprolol Succinate Succinate t} Succinate ER 100 MG ER 100 MG ER 100 MG hydrochloro hydrochloro No hydrochlor Pam thiazide 25 thiazide 25 othiazide [facility] mg tablet mg tablet 25 mg dic TAKE 1 TAKE 1 tablet Sports TABLET BY TABLET BY TAKE 1 Med icin MOUTH EVERY MOUTH EVERY TABLET BY e DAY IN THE DAY IN THE MOUTH MORNING FOR MORNING FOR EVERY DAY 90 DAYS 90 DAYS IN THE MORNING FOR 90 DAYS Vitamin C Vitamin C No 1{table QD Vitamin C 500 MG 500 MG t} 500 MG hydroCHLORO hydroCHLORO No hydroCHLOR thiazide 25 thiazide 25 Othiazide MG MG 25 MG Losartan Losartan No Losartan Potassium Potassium Potassium 25 MG 25 MG 25 MG Sertraline Sertraline No 1{table QD Sertraline HCl 100 MG HCl 100 MG t} HCl 100 MG Cyclobenzap Cyclobenzap No 1{table Cyclobenza rine HCl 10 rine HCl 10 t_at_be marcos HCl MG MG dtime_a 10 MG s_neede d} Diazepam 5 Diazepam 5 No QD Diazepam 5 MG MG MG Benzonatate Benzonatate No 1{capsu TID Benzonatat 100 MG 100 MG le_as_n e 100 MG eeded} metFORMIN metFORMIN No metFORMIN HCl 500 MG HCl 500 MG HCl 500 MG Biotin 5000 Biotin 5000 No Biotin 5000 NexIUM 24HR NexIUM 24HR No 1{capsu QD NexIUM 20 MG 20 MG le} 24HR 20 MG hydroxyzine hydroxyzine No hydroxyzin Pam HCl 50 mg HCl 50 mg e HCl 50 O [facility] tablet TAKE tablet TAKE mg tablet dic ONE TABLET ONE TABLET TAKE ONE Sports BY MOUTH BY MOUTH TABLET BY Ar dicin EVERY 8 EVERY 8 MOUTH e HOURS HOURS EVERY 8 NEEDED NEEDED HOURS NEEDED Sertraline Sertraline No 1{table QD Sertraline HCl 50 MG HCl 50 MG t} HCl 50 MG Oxybutynin Oxybutynin No 1{table QD Oxybutynin Chloride ER Chloride ER t} Chloride 10 MG 10 MG ER 10 MG Esomeprazol Esomeprazol No Esomeprazo e Magnesium e Magnesium le 20 MG 20 MG Magnesium 20 MG hydrOXYzine hydrOXYzine No hydrOXYzin HCl 50 MG HCl 50 MG e HCl 50 MG Albuterol Albuterol No 2{puff_ 6xD Albuterol Sulfate 108 Sulfate 108 as_need Sulfate (90 Base) (90 Base) ed} 108 (90 MCG/ACT MCG/ACT Base) MCG/ACT Acetaminoph Acetaminoph No Acetaminop en en hen Cyclobenzap Cyclobenzap No Cyclobenza rine HCl 10 rine HCl 10 marcos HCl MG MG 10 MG hydroCHLORO hydroCHLORO No hydroCHLOR thiazide 25 thiazide 25 Othiazide MG MG 25 MG metFORMIN metFORMIN No metFORMIN HCl 500 MG HCl 500 MG HCl 500 MG Vitamin C Vitamin C No 1{table QD Vitamin C 500 MG 500 MG t} 500 MG lisinopril lisinopril No lisinopril Pam 5 mg tablet 5 mg tablet 5 mg O [facility]ope TAKE 1 TAKE 1 tablet dic TABLET BY TABLET BY TAKE 1 Spo rts MOUTH EVERY MOUTH EVERY TABLET BY Medicin DAY DAY MOUTH e EVERY DAY Magnesium Magnesium No Magnesium 400 MG 400 MG 400 MG NexIUM 24HR NexIUM 24HR No 1{capsu QD NexIUM 20 MG 20 MG le} 24HR 20 MG Sertraline Sertraline No Sertraline HCl 100 MG HCl 100 MG HCl 100 MG hydrOXYzine hydrOXYzine No hydrOXYzin HCl 50 MG HCl 50 MG e HCl 50 MG Oxybutynin Oxybutynin No 1{table QD Oxybutynin Chloride ER Chloride ER t} Chloride 10 MG 10 MG ER 10 MG Albuterol Albuterol No 2{puff_ 6xD Albuterol Sulfate 108 Sulfate 108 as_need Sulfate (90 Base) (90 Base) ed} 108 (90 MCG/ACT MCG/ACT Base) MCG/ACT Biotin 5000 Biotin 5000 No Biotin 5000 Diazepam 5 Diazepam 5 No QD Diazepam 5 MG MG MG Benzonatate Benzonatate No 1{capsu TID Benzonatat 100 MG 100 MG le_as_n e 100 MG eeded} Metoprolol Metoprolol No 1{table QD Metoprolol Succinate Succinate t} Succinate ER 100 MG ER 100 MG ER 100 MG Livalo 2 mg Livalo 2 mg No Livalo 2 Pam tablet TAKE tablet TAKE mg tablet [facility] 1 TABLET BY 1 TABLET BY TAKE 1 dic MOUTH EVERY MOUTH EVERY TABLET BY Sports DAY DAY MOUTH Medicin EVERY DAY e Losartan Losartan No Losartan Potassium Potassium Potassium 25 MG 25 MG 25 MG Esomeprazol Esomeprazol No Esomeprazo e Magnesium e Magnesium le 20 MG 20 MG Magnesium 20 MG Zinc 50 MG Zinc 50 MG No 1{table QD Zinc 50 MG t} Sertraline Sertraline No Sertraline HCl 50 MG HCl 50 MG HCl 50 MG Livalo 2 MG Livalo 2 MG No 1{table QD Livalo 2 t} MG hydrOXYzine hydrOXYzine No 1{table TID hydrOXYzin HCl 50 MG HCl 50 MG t_as_ne e HCl 50 eded} MG Elderberry Elderberry No Elderberry Acetaminoph Acetaminoph No Acetaminop en en hen hydrOXYzine hydrOXYzine No 1{table TID hydrOXYzin HCl 50 MG HCl 50 MG t_as_ne e HCl 50 eded} MG NexIUM 24HR NexIUM 24HR No 1{capsu QD NexIUM 20 MG 20 MG le} 24HR 20 MG losartan 25 losartan 25 No losartan Pam mg tablet mg tablet 25 mg [facility] TAKE 1 TAKE 1 tablet dic TABLET BY TABLET BY TAKE 1 Spo rts MOUTH EVERY MOUTH EVERY TABLET BY Medicin DAY DAY MOUTH e EVERY DAY Sertraline Sertraline No Sertraline HCl 100 MG HCl 100 MG HCl 100 MG Cyclobenzap Cyclobenzap No Cyclobenza rine HCl 10 rine HCl 10 marcos HCl MG MG 10 MG Etodolac Etodolac No 1{table BID Etodolac 400 MG 400 MG t_with_ 400 MG food} metFORMIN metFORMIN No metFORMIN HCl 500 MG HCl 500 MG HCl 500 MG Cyclobenzap Cyclobenzap No 1{table Cyclobenza rine HCl 10 rine HCl 10 t_at_be marcos HCl MG MG dtime_a 10 MG s_neede d} Esomeprazol Esomeprazol No Esomeprazo e Magnesium e Magnesium le 20 MG 20 MG Magnesium 20 MG hydroCHLORO hydroCHLORO No hydroCHLOR thiazide 25 thiazide 25 Othiazide MG MG 25 MG Calcium + Calcium + No Calcium + D3 D3 D3 Montelukast Montelukast No 1{table QD Montelukas Sodium 10 Sodium 10 t} t Sodium MG MG 10 MG Losartan Losartan No Losartan Potassium Potassium Potassium 25 MG 25 MG 25 MG metformin metformin No metformin Pam 500 mg 500 mg 500 mg [facility] tablet TAKE tablet TAKE tablet dic 1 TABLET BY 1 TABLET BY TAKE 1 Sports MOUTH TWICE MOUTH TWICE TABLET BY Medicin A DAY A DAY MOUTH e TWICE A DAY hydrOXYzine hydrOXYzine No hydrOXYzin HCl 50 MG HCl 50 MG e HCl 50 MG Sertraline Sertraline No Sertraline HCl 50 MG HCl 50 MG HCl 50 MG Biotin 5000 Biotin 5000 No Biotin 5000 Albuterol Albuterol No 2{puff_ 6xD Albuterol Sulfate 108 Sulfate 108 as_need Sulfate (90 Base) (90 Base) ed} 108 (90 MCG/ACT MCG/ACT Base) MCG/ACT Oxybutynin Oxybutynin No 1{table QD Oxybutynin Chloride ER Chloride ER t} Chloride 10 MG 10 MG ER 10 MG Vitamin C Vitamin C No 1{table QD Vitamin C 500 MG 500 MG t} 500 MG Oxybutynin Oxybutynin No 1{table QD Oxybutynin Chloride ER Chloride ER t} Chloride 10 MG 10 MG ER 10 MG Livalo 2 MG Livalo 2 MG No 1{table QD Livalo 2 t} MG Livalo 2 MG Livalo 2 MG No 1{table QD Livalo 2 t} MG Zinc 50 MG Zinc 50 MG No 1{table QD Zinc 50 MG t} methylpredn methylpredn No methylpred Pam isolone 4 isolone 4 nisolone 4 [facility] mg tablets mg tablets mg tablets dic in a dose in a dose in a dose Sports pack PLEASE pack PLEASE pack M edicin SEE SEE PLEASE SEE e ATTACHED ATTACHED ATTACHED FOR FOR FOR DETAILED DETAILED DETAILED DIRECTIONS DIRECTIONS DIRECTIONS Sertraline Sertraline No 1{table QD Sertraline HCl 100 MG HCl 100 MG t} HCl 100 MG Diazepam 5 Diazepam 5 No QD Diazepam 5 MG MG MG Elderberry Elderberry No Elderberry Magnesium Magnesium No Magnesium 400 MG 400 MG 400 MG Metoprolol Metoprolol No 1{table QD Metoprolol Succinate Succinate t} Succinate ER 100 MG ER 100 MG ER 100 MG Benzonatate Benzonatate No 1{capsu TID Benzonatat 100 MG 100 MG le_as_n e 100 MG eeded} Acetaminoph Acetaminoph No Acetaminop en en hen hydrOXYzine hydrOXYzine No 1{table TID hydrOXYzin HCl 50 MG HCl 50 MG t_as_ne e HCl 50 eded} MG NexIUM 24HR NexIUM 24HR No 1{capsu QD NexIUM 20 MG 20 MG le} 24HR 20 MG Sertraline Sertraline No Sertraline HCl 100 MG HCl 100 MG HCl 100 MG metoprolol metoprolol No metoprolol Pam succinate succinate succinate [facility] ER 100 mg ER 100 mg ER 100 mg dic tablet,exte tablet,exte tablet,ext Sports nded nded ended Medicin release 24 release 24 release 24 e hr TAKE 1 hr TAKE 1 hr TAKE 1 TABLET BY TABLET BY TABLET BY MOUTH EVERY MOUTH EVERY MOUTH DAY DAY EVERY DAY Cyclobenzap Cyclobenzap No Cyclobenza rine HCl 10 rine HCl 10 marcos HCl MG MG 10 MG Etodolac Etodolac No 1{table BID Etodolac 400 MG 400 MG t_with_ 400 MG food} metFORMIN metFORMIN No metFORMIN HCl 500 MG HCl 500 MG HCl 500 MG Cyclobenzap Cyclobenzap No 1{table Cyclobenza rine HCl 10 rine HCl 10 t_at_be marcos HCl MG MG dtime_a 10 MG s_neede d} Esomeprazol Esomeprazol No Esomeprazo e Magnesium e Magnesium le 20 MG 20 MG Magnesium 20 MG hydroCHLORO hydroCHLORO No hydroCHLOR thiazide 25 thiazide 25 Othiazide MG MG 25 MG Calcium + Calcium + No Calcium + D3 D3 D3 Montelukast Montelukast No 1{table QD Montelukas Sodium 10 Sodium 10 t} t Sodium MG MG 10 MG Losartan Losartan No Losartan Potassium Potassium Potassium 25 MG 25 MG 25 MG hydrOXYzine hydrOXYzine No hydrOXYzin HCl 50 MG HCl 50 MG e HCl 50 MG omeprazole omeprazole No omeprazole Pam 20 mg 20 mg 20 mg Orthope capsule,del capsule,del capsule,de dic ayed ayed layed Sports release release release Medici n TAKE ONE TAKE ONE TAKE ONE e CAPSULE BY CAPSULE BY CAPSULE BY MOUTH 30 MOUTH 30 MOUTH 30 MINUTES MINUTES MINUTES BEFORE BEFORE BEFORE MORNING MORNING MORNING MEAL ONCE A MEAL ONCE A MEAL ONCE DAY DAY A DAY Sertraline Sertraline No Sertraline HCl 50 MG HCl 50 MG HCl 50 MG Biotin 5000 Biotin 5000 No Biotin 5000 Albuterol Albuterol No 2{puff_ 6xD Albuterol Sulfate 108 Sulfate 108 as_need Sulfate (90 Base) (90 Base) ed} 108 (90 MCG/ACT MCG/ACT Base) MCG/ACT Oxybutynin Oxybutynin No 1{table QD Oxybutynin Chloride ER Chloride ER t} Chloride 10 MG 10 MG ER 10 MG Vitamin C Vitamin C No 1{table QD Vitamin C 500 MG 500 MG t} 500 MG Oxybutynin Oxybutynin No 1{table QD Oxybutynin Chloride ER Chloride ER t} Chloride 10 MG 10 MG ER 10 MG Livalo 2 MG Livalo 2 MG No 1{table QD Livalo 2 t} MG Livalo 2 MG Livalo 2 MG No 1{table QD Livalo 2 t} MG Zinc 50 MG Zinc 50 MG No 1{table QD Zinc 50 MG t} Sertraline Sertraline No 1{table QD Sertraline HCl 100 MG HCl 100 MG t} HCl 100 MG ondansetron ondansetron No ondansetro Pam HCl 4 mg HCl 4 mg n HCl 4 mg [facility] tablet TAKE tablet TAKE tablet dic 1 TABLET BY 1 TABLET BY TAKE 1 Sports MOUTH EVERY MOUTH EVERY TABLET BY Medicin 8 HOURS 8 HOURS MOUTH e NEEDED NEEDED EVERY 8 HOURS NEEDED Diazepam 5 Diazepam 5 No QD Diazepam 5 MG MG MG Elderberry Elderberry No Elderberry Magnesium Magnesium No Magnesium 400 MG 400 MG 400 MG Metoprolol Metoprolol No 1{table QD Metoprolol Succinate Succinate t} Succinate ER 100 MG ER 100 MG ER 100 MG Benzonatate Benzonatate No 1{capsu TID Benzonatat 100 MG 100 MG le_as_n e 100 MG eeded} Acetaminoph Acetaminoph No Acetaminop en en hen hydrOXYzine hydrOXYzine No 1{table TID hydrOXYzin HCl 50 MG HCl 50 MG t_as_ne e HCl 50 eded} MG NexIUM 24HR NexIUM 24HR No 1{capsu QD NexIUM 20 MG 20 MG le} 24HR 20 MG Sertraline Sertraline No Sertraline HCl 100 MG HCl 100 MG HCl 100 MG Cyclobenzap Cyclobenzap No Cyclobenza rine HCl 10 rine HCl 10 marcos HCl MG MG 10 MG oxybutynin oxybutynin No oxybutynin Pam chloride ER chloride ER chloride [facility] 10 mg 10 mg ER 10 mg dic tablet,exte tablet,exte tablet,ext Sports nded nded ended Medicin release 24 release 24 release 24 e hr TAKE 1 hr TAKE 1 hr TAKE 1 TABLET BY TABLET BY TABLET BY MOUTH EVERY MOUTH EVERY MOUTH DAY DAY EVERY DAY Etodolac Etodolac No 1{table BID Etodolac 400 MG 400 MG t_with_ 400 MG food} metFORMIN metFORMIN No metFORMIN HCl 500 MG HCl 500 MG HCl 500 MG Cyclobenzap Cyclobenzap No 1{table Cyclobenza rine HCl 10 rine HCl 10 t_at_be marcos HCl MG MG dtime_a 10 MG s_neede d} Esomeprazol Esomeprazol No Esomeprazo e Magnesium e Magnesium le 20 MG 20 MG Magnesium 20 MG hydroCHLORO hydroCHLORO No hydroCHLOR thiazide 25 thiazide 25 Othiazide MG MG 25 MG Calcium + Calcium + No Calcium + D3 D3 D3 Montelukast Montelukast No 1{table QD Montelukas Sodium 10 Sodium 10 t} t Sodium MG MG 10 MG Losartan Losartan No Losartan Potassium Potassium Potassium 25 MG 25 MG 25 MG hydrOXYzine hydrOXYzine No hydrOXYzin HCl 50 MG HCl 50 MG e HCl 50 MG Sertraline Sertraline No Sertraline HCl 50 MG HCl 50 MG HCl 50 MG prednisone prednisone No prednisone Pam 10 mg 10 mg 10 mg [facility] tablet tablet tablet dic PLEASE SEE PLEASE SEE PLEASE SEE Sports ATTACHED ATTACHED ATTACHED Med icin FOR FOR FOR e DETAILED DETAILED DETAILED DIRECTIONS DIRECTIONS DIRECTIONS Biotin 5000 Biotin 5000 No Biotin 5000 Albuterol Albuterol No 2{puff_ 6xD Albuterol Sulfate 108 Sulfate 108 as_need Sulfate (90 Base) (90 Base) ed} 108 (90 MCG/ACT MCG/ACT Base) MCG/ACT Oxybutynin Oxybutynin No 1{table QD Oxybutynin Chloride ER Chloride ER t} Chloride 10 MG 10 MG ER 10 MG Vitamin C Vitamin C No 1{table QD Vitamin C 500 MG 500 MG t} 500 MG Oxybutynin Oxybutynin No 1{table QD Oxybutynin Chloride ER Chloride ER t} Chloride 10 MG 10 MG ER 10 MG Livalo 2 MG Livalo 2 MG No 1{table QD Livalo 2 t} MG Livalo 2 MG Livalo 2 MG No 1{table QD Livalo 2 t} MG Zinc 50 MG Zinc 50 MG No 1{table QD Zinc 50 MG t} Sertraline Sertraline No 1{table QD Sertraline HCl 100 MG HCl 100 MG t} HCl 100 MG Diazepam 5 Diazepam 5 No QD Diazepam 5 MG MG MG promethazin promethazin No promethazi Pam e 6.25 mg/5 e 6.25 mg/5 ne 6.25 [facility] mL oral mL oral mg/5 mL dic syrup TAKE syrup TAKE oral syrup Sports 10 ML BY 10 ML BY TAKE 10 ML M edicin MOUTH EVERY MOUTH EVERY BY MOUTH e 8 HOURS 8 HOURS EVERY 8 NEEDED FOR NEEDED FOR HOURS 7 DAYS 7 DAYS NEEDED FOR 7 DAYS Elderberry Elderberry No Elderberry Magnesium Magnesium No Magnesium 400 MG 400 MG 400 MG Metoprolol Metoprolol No 1{table QD Metoprolol Succinate Succinate t} Succinate ER 100 MG ER 100 MG ER 100 MG Benzonatate Benzonatate No 1{capsu TID Benzonatat 100 MG 100 MG le_as_n e 100 MG eeded} Acetaminoph Acetaminoph No Acetaminop en en hen hydrOXYzine hydrOXYzine No 1{table TID hydrOXYzin HCl 50 MG HCl 50 MG t_as_ne e HCl 50 eded} MG NexIUM 24HR NexIUM 24HR No 1{capsu QD NexIUM 20 MG 20 MG le} 24HR 20 MG Sertraline Sertraline No Sertraline HCl 100 MG HCl 100 MG HCl 100 MG Cyclobenzap Cyclobenzap No Cyclobenza rine HCl 10 rine HCl 10 marcos HCl MG MG 10 MG Etodolac Etodolac No 1{table BID Etodolac 400 MG 400 MG t_with_ 400 MG food} sertraline sertraline No sertraline Pam 100 mg 100 mg 100 mg [facility] tablet TAKE tablet TAKE tablet dic 1 TABLET BY 1 TABLET BY TAKE 1 Sports MOUTH EVERY MOUTH EVERY TABLET BY Medicin DAY DAY MOUTH e EVERY DAY metFORMIN metFORMIN No metFORMIN HCl 500 MG HCl 500 MG HCl 500 MG Cyclobenzap Cyclobenzap No 1{table Cyclobenza rine HCl 10 rine HCl 10 t_at_be marcos HCl MG MG dtime_a 10 MG s_neede d} Esomeprazol Esomeprazol No Esomeprazo e Magnesium e Magnesium le 20 MG 20 MG Magnesium 20 MG NexIUM 24HR NexIUM 24HR No 1{capsu QD NexIUM 20 MG 20 MG le} 24HR 20 MG hydroCHLORO hydroCHLORO No hydroCHLOR thiazide 25 thiazide 25 Othiazide MG MG 25 MG Calcium + Calcium + No Calcium + D3 D3 D3 Montelukast Montelukast No 1{table QD Montelukas Sodium 10 Sodium 10 t} t Sodium MG MG 10 MG Losartan Losartan No Losartan Potassium Potassium Potassium 25 MG 25 MG 25 MG hydrOXYzine hydrOXYzine No hydrOXYzin HCl 50 MG HCl 50 MG e HCl 50 MG Sertraline Sertraline No Sertraline HCl 50 MG HCl 50 MG HCl 50 MG sertraline sertraline No sertraline Pam 50 mg 50 mg 50 mg [facility] tablet TAKE tablet TAKE tablet dic 1 TABLET BY 1 TABLET BY TAKE 1 Sports MOUTH EVERY MOUTH EVERY TABLET BY Medicin DAY DAY MOUTH e EVERY DAY Biotin 5000 Biotin 5000 No Biotin 5000 Albuterol Albuterol No 2{puff_ 6xD Albuterol Sulfate 108 Sulfate 108 as_need Sulfate (90 Base) (90 Base) ed} 108 (90 MCG/ACT MCG/ACT Base) MCG/ACT Oxybutynin Oxybutynin No 1{table QD Oxybutynin Chloride ER Chloride ER t} Chloride 10 MG 10 MG ER 10 MG Vitamin C Vitamin C No 1{table QD Vitamin C 500 MG 500 MG t} 500 MG Vitamin C Vitamin C No 1{table QD Vitamin C 500 MG 500 MG t} 500 MG Oxybutynin Oxybutynin No 1{table QD Oxybutynin Chloride ER Chloride ER t} Chloride 10 MG 10 MG ER 10 MG Livalo 2 MG Livalo 2 MG No 1{table QD Livalo 2 t} MG Livalo 2 MG Livalo 2 MG No 1{table QD Livalo 2 t} MG Zinc 50 MG Zinc 50 MG No 1{table QD Zinc 50 MG t} Sertraline Sertraline No 1{table QD Sertraline HCl 100 MG HCl 100 MG t} HCl 100 MG azithromyci azithromyci No azithromyc Pam n 250 mg n 250 mg in 250 mg Or thope tablet TAKE tablet TAKE tablet dic 2 TABLETS 2 TABLETS TAKE 2 Spo rts BY MOUTH BY MOUTH TABLETS BY M edicin TODAY, THEN TODAY, THEN MOUTH e TAKE 1 TAKE 1 TODAY, TABLET TABLET THEN TAKE DAILY FOR 4 DAILY FOR 4 1 TABLET DAYS DAYS DAILY FOR 4 DAYS Diazepam 5 Diazepam 5 No QD Diazepam 5 MG MG MG Elderberry Elderberry No Elderberry Magnesium Magnesium No Magnesium 400 MG 400 MG 400 MG Metoprolol Metoprolol No 1{table QD Metoprolol Succinate Succinate t} Succinate ER 100 MG ER 100 MG ER 100 MG Albuterol Albuterol No 2{puff_ 6xD Albuterol Sulfate 108 Sulfate 108 as_need Sulfate (90 Base) (90 Base) ed} 108 (90 MCG/ACT MCG/ACT Base) MCG/ACT Benzonatate Benzonatate No 1{capsu TID Benzonatat 100 MG 100 MG le_as_n e 100 MG eeded} metFORMIN metFORMIN No 1{table BID metFORMIN HCl 500 MG HCl 500 MG t_with_ HCl 500 MG a_meal} Acetaminoph Acetaminoph No Acetaminop en en hen Biotin 5000 Biotin 5000 No Biotin 5000 hydroCHLORO hydroCHLORO No 1{table QD hydroCHLOR thiazide 25 thiazide 25 t_in_th Othiazide MG MG e_morni 25 MG ng} benzonatate benzonatate No benzonatat Pam 100 mg 100 mg e 100 mg [facility] capsule capsule capsule dic TAKE ONE TO TAKE ONE TO TAKE ONE Sports TWO TWO TO TWO Medicin CAPSULES BY CAPSULES BY CAPSULES e MOUTH EVERY MOUTH EVERY BY MOUTH 8 HOURS 8 HOURS EVERY 8 NEEDED FOR NEEDED FOR HOURS COUGHING COUGHING NEEDED FOR COUGHING Metoprolol Metoprolol No 1{table QD Metoprolol Succinate Succinate t} Succinate ER 100 MG ER 100 MG ER 100 MG Sertraline Sertraline No 1{table QD Sertraline HCl 100 MG HCl 100 MG t} HCl 100 MG Oxybutynin Oxybutynin No 1{table QD Oxybutynin Chloride ER Chloride ER t} Chloride 10 MG 10 MG ER 10 MG Elderberry Elderberry No Elderberry Zinc 50 MG Zinc 50 MG No 1{table QD Zinc 50 MG t} Benzonatate Benzonatate No 1{capsu TID Benzonatat 100 MG 100 MG le_as_n e 100 MG eeded} Magnesium Magnesium No Magnesium 400 MG 400 MG 400 MG Simvastatin Simvastatin No 1{table QD Simvastati 20 MG 20 MG t_in_th n 20 MG e_eveni ng} Cyclobenzap Cyclobenzap No 1{table Cyclobenza rine HCl 10 rine HCl 10 t_at_be marcos HCl MG MG dtime_a 10 MG s_neede d} bromphenira bromphenira No bromphenir Pam mine-pseudo mine-pseudo amine-pseu [facility] ephedrine-D ephedrine-D doephedrin dic M 2 mg-30 M 2 mg-30 e-DM 2 Spo rts mg-10 mg/5 mg-10 mg/5 mg-30 Me dicin mL oral mL oral mg-10 mg/5 e syrup TAKE syrup TAKE mL oral 10 ML BY 10 ML BY syrup TAKE MOUTH EVERY MOUTH EVERY 10 ML BY 4 HOURS 4 HOURS MOUTH NEEDED. DO NEEDED. DO EVERY 4 NOT EXCEED NOT EXCEED HOURS 6 DOSES A 6 DOSES A NEEDED. DO DAY DAY NOT EXCEED 6 DOSES A DAY cefdinir cefdinir No cefdinir Aza daniel 300 mg 300 mg 300 mg [facility] capsule capsule capsule dic TAKE ONE TAKE ONE TAKE ONE Spo rts CAPSULE BY CAPSULE BY CAPSULE BY Medicin MOUTH EVERY MOUTH EVERY MOUTH e 12 HOURS 12 HOURS EVERY 12 FOR 10 DAYS FOR 10 DAYS HOURS FOR 10 DAYS cyclobenzap cyclobenzap No cyclobenza Pam rine 10 mg rine 10 mg marcos 10 [facility] tablet TAKE tablet TAKE mg tablet dic 1 TABLET AT 1 TABLET AT TAKE 1 Sports BEDTIME BEDTIME TABLET AT Medicin NEEDED BY NEEDED BY BEDTIME e MOUTH ONCE MOUTH ONCE NEEDED BY A DAY FOR A DAY FOR MOUTH ONCE 30 DAY(S) 30 DAY(S) A DAY FOR 30 DAY(S) esomeprazol esomeprazol No esomeprazo Pam e magnesium e magnesium le [facility] 20 mg 20 mg magnesium dic capsule,del capsule,del 20 mg Sports ayed ayed capsule,de Medicin release release layed e TAKE 1 TAKE 1 release CAPSULE BY CAPSULE BY TAKE 1 MOUTH EVERY MOUTH EVERY CAPSULE BY DAY DAY MOUTH EVERY DAY etodolac etodolac No etodolac Aza daniel 400 mg 400 mg 400 mg [facility] tablet TAKE tablet TAKE tablet dic 1 TABLET BY 1 TABLET BY TAKE 1 Sports MOUTH TWICE MOUTH TWICE TABLET BY Medicin A DAY A DAY MOUTH e DIRECTED DIRECTED TWICE A DAY DIRECTED hydrochloro hydrochloro No hydrochlor Pam thiazide 25 thiazide 25 othiazide [facility] mg tablet mg tablet 25 mg dic TAKE 1 TAKE 1 tablet Sports TABLET BY TABLET BY TAKE 1 Med icin MOUTH EVERY MOUTH EVERY TABLET BY e DAY IN THE DAY IN THE MOUTH MORNING FOR MORNING FOR EVERY DAY 90 DAYS 90 DAYS IN THE MORNING FOR 90 DAYS hydroxyzine hydroxyzine No hydroxyzin Pam HCl 50 mg HCl 50 mg e HCl 50 [facility] tablet TAKE tablet TAKE mg tablet dic ONE TABLET ONE TABLET TAKE ONE Sports BY MOUTH BY MOUTH TABLET BY Ar dicin EVERY 8 EVERY 8 MOUTH e HOURS HOURS EVERY 8 NEEDED NEEDED HOURS NEEDED lisinopril lisinopril No lisinopril Pam 5 mg tablet 5 mg tablet 5 mg O [facility] TAKE 1 TAKE 1 tablet dic TABLET BY TABLET BY TAKE 1 Spo rts MOUTH EVERY MOUTH EVERY TABLET BY Medicin DAY DAY MOUTH e EVERY DAY Livalo 2 mg Livalo 2 mg No Livalo 2 Pam tablet TAKE tablet TAKE mg tablet [facility] 1 TABLET BY 1 TABLET BY TAKE 1 dic MOUTH EVERY MOUTH EVERY TABLET BY Sports DAY DAY MOUTH Medicin EVERY DAY e losartan 25 losartan 25 No losartan Pam mg tablet mg tablet 25 mg [facility] TAKE 1 TAKE 1 tablet dic TABLET BY TABLET BY TAKE 1 Spo rts MOUTH EVERY MOUTH EVERY TABLET BY Medicin DAY DAY MOUTH e EVERY DAY metformin metformin No metformin Pam 500 mg 500 mg 500 mg [facility] tablet TAKE tablet TAKE tablet dic 1 TABLET BY 1 TABLET BY TAKE 1 Sports MOUTH TWICE MOUTH TWICE TABLET BY Medicin A DAY A DAY MOUTH e TWICE A DAY methylpredn methylpredn No methylpred Pam isolone 4 isolone 4 nisolone 4 [facility] mg tablets mg tablets mg tablets dic in a dose in a dose in a dose Sports pack PLEASE pack PLEASE pack M edicin SEE SEE PLEASE SEE e ATTACHED ATTACHED ATTACHED FOR FOR FOR DETAILED DETAILED DETAILED DIRECTIONS DIRECTIONS DIRECTIONS metoprolol metoprolol No metoprolol Pam succinate succinate succinate [facility] ER 100 mg ER 100 mg ER 100 mg dic tablet,exte tablet,exte tablet,ext Sports nded nded ended Medicin release 24 release 24 release 24 e hr TAKE 1 hr TAKE 1 hr TAKE 1 TABLET BY TABLET BY TABLET BY MOUTH EVERY MOUTH EVERY MOUTH DAY DAY EVERY DAY omeprazole omeprazole No omeprazole Pam 20 mg 20 mg 20 mg [facility] capsule,del capsule,del capsule,de dic ayed ayed layed Sports release release release Medici n TAKE ONE TAKE ONE TAKE ONE e CAPSULE BY CAPSULE BY CAPSULE BY MOUTH 30 MOUTH 30 MOUTH 30 MINUTES MINUTES MINUTES BEFORE BEFORE BEFORE MORNING MORNING MORNING MEAL ONCE A MEAL ONCE A MEAL ONCE DAY DAY A DAY ondansetron ondansetron No ondansetro Pam HCl 4 mg HCl 4 mg n HCl 4 mg [facility] tablet TAKE tablet TAKE tablet dic 1 TABLET BY 1 TABLET BY TAKE 1 Sports MOUTH EVERY MOUTH EVERY TABLET BY Medicin 8 HOURS 8 HOURS MOUTH e NEEDED NEEDED EVERY 8 HOURS NEEDED oxybutynin oxybutynin No oxybutynin Pam chloride ER chloride ER chloride [facility] 10 mg 10 mg ER 10 mg dic tablet,exte tablet,exte tablet,ext Sports nded nded ended Medicin release 24 release 24 release 24 e hr TAKE 1 hr TAKE 1 hr TAKE 1 TABLET BY TABLET BY TABLET BY MOUTH EVERY MOUTH EVERY MOUTH DAY FOR 90 DAY FOR 90 EVERY DAY DAYS DAYS FOR 90 DAYS prednisone prednisone No prednisone Pam 10 mg 10 mg 10 mg [facility] tablet tablet tablet dic PLEASE SEE PLEASE SEE PLEASE SEE Sports ATTACHED ATTACHED ATTACHED Med icin FOR FOR FOR e DETAILED DETAILED DETAILED DIRECTIONS DIRECTIONS DIRECTIONS promethazin promethazin No promethazi Pam e 6.25 mg/5 e 6.25 mg/5 ne 6.25 [facility] mL oral mL oral mg/5 mL dic syrup TAKE syrup TAKE oral syrup Sports 10 ML BY 10 ML BY TAKE 10 ML M edicin MOUTH EVERY MOUTH EVERY BY MOUTH e 8 HOURS 8 HOURS EVERY 8 NEEDED FOR NEEDED FOR HOURS 7 DAYS 7 DAYS NEEDED FOR 7 DAYS sertraline sertraline No sertraline Pam 100 mg 100 mg 100 mg [facility] tablet TAKE tablet TAKE tablet dic 1 TABLET BY 1 TABLET BY TAKE 1 Sports MOUTH EVERY MOUTH EVERY TABLET BY Medicin DAY DAY MOUTH e EVERY DAY sertraline sertraline No sertraline Pam 50 mg 50 mg 50 mg [facility] tablet TAKE tablet TAKE tablet dic 1 TABLET BY 1 TABLET BY TAKE 1 Sports MOUTH EVERY MOUTH EVERY TABLET BY Medicin DAY DAY MOUTH e EVERY DAY Oxybutynin Oxybutynin 2020- No 1{table QD Oxybutynin Chloride ER Chloride ER 12-21 t} Chloride 10 MG 10 MG 00:00 ER 10 MG :00 Oxybutynin Oxybutynin 2020- No 1{table QD Oxybutynin Chloride ER Chloride ER 12-21 t} Chloride 10 MG 10 MG 00:00 ER 10 MG :00 Oxybutynin Oxybutynin 2020- No 1{table QD Oxybutynin Chloride ER Chloride ER 12-21 t} Chloride 10 MG 10 MG 00:00 ER 10 MG :00 Oxybutynin Oxybutynin 2020- No 1{table QD Oxybutynin Chloride ER Chloride ER 12-21 t} Chloride 10 MG 10 MG 00:00 ER 10 MG :00 Immunizations Ordered Immunization Filled Immunization Date Status Commen ts Source Name Name FLUZONE HIGH DOSE FLUZONE HIGH DOSE 2022-09-10 Completed [facility] OVER 65 08:40:00 - [facility] FLUZONE HIGH DOSE FLUZONE HIGH DOSE 2022-09-10 Completed [facility] OVER 65 OVER 65 08:40:00 - [facility] Prevnar 20 (PCV20) Prevnar 20 (PCV20) 2022-01-19 Completed [facility] 09[facility]36:00 - [facility] Prevnar 20 (PCV20) Prevnar 20 (PCV20) 2022-01-19 Completed [facility] 09:36:00 - [facility] Prevnar 20 (PCV20) Prevnar 20 (PCV20) 2022-01-19 Completed [facility] 09:36:00 - [facility] Prevnar 20 (PCV20) Prevnar 20 (PCV20) 2022-01-19 Completed [facility] 09:36:00 - [facility] Prevnar 20 (PCV20) Prevnar 20 (PCV20) 2022-01-19 Completed [facility] 09:36:00 - [facility] Prevnar 20 (PCV20) Prevnar 20 (PCV20) 2022-01-19 Completed [facility] 09:36:00 - [facility] Prevnar 20 (PCV20) Prevnar 20 (PCV20) 2022-01-19 Completed [facility] 09:36:00 - [facility] Prevnar 20 (PCV20) Prevnar 20 (PCV20) 2022-01-19 Completed [facility] 09[facility]36:00 [facility] Prevnar 20 (PCV20) Prevnar 20 (PCV20) 2022-01-19 Completed [facility] 09:36:00 [facility] Prevnar 20 (PCV20) Prevnar 20 (PCV20) 2022-01-19 Completed [facility] 09:36:00 - [facility] Prevnar 20 (PCV20) Prevnar 20 (PCV20) 2022-01-19 Completed [facility] 09:36:00 - [facility] Prevnar 20 (PCV20) Prevnar 20 (PCV20) 2022-01-19 Completed [facility] 09:36:00 - [facility] Flucelvax - Flucelvax - 2021-10-08 [facility] multid[facility] 08:21:00 - [facility] Flucelvax - Flucelvax - 2021-10-08 [facility] multidose vial 08:21:00 - [facility] Flucelvax - Flucelvax - 2021-10-08 [facility] multidose vial 08:21:00 - [facility] Flucelvax - Flucelvax - 2021-10-08 [facility] multidose vial 08:21:00 - [facility] Flucelvax - Flucelvax - 2021-10-08 [facility] multidose [facility]ial 08:21:00 - [facility] Flucelvax - Flucelvax - 2021-10-08 [facility] multidose vial 08:21:00 - [facility] Flucelvax - Flucelvax - 2021-10-08 [facility] multidose vial 08:21:00 - [facility] Flucelvax - Flucelvax - 2021-10-08 [facility] multidose vial 08:21:00 - [facility] Flucelvax - Flucelvax - 2021-10-08 [facility] multidose vial 08:21:00 - [facility] Flucelvax - Flucelvax - 2021-10-08 [facility] multidose vial 08:21:00 - [facility] Flucelvax - Flucelvax - 2021-10-08 [facility] multidose vial 08:21:00 - [facility] Flucelvax - Flucelvax - 2021-10-08 [facility] multidose vial 08:21:00 - [facility] Flucelvax - Flucelvax - 2021-10-08 [facility] multidose vial 08:21:00 - [facility] Flucelvax - Flucelvax - 2021-10-08 [facility] multidose vial 08:21:00 - [facility] Flucelvax - Flucelvax - 2021-10-08 [facility] multidose [facility] 08:21:00 - [facility] Pfizer COVID-19 Pfizer COVID-19 2021-05-24 [facility] 08:25:[facility] - [facility] Pfizer COVID-19 Pfizer COVID-19 2021-05-24 [facility] 08:25:00 - [facility] Pfizer COVID-19 Pfizer COVID-19 2021-05-24 [facility] 08:25:00 - [facility] Pfizer COVID-19 Pfizer COVID-19 2021-05-24 [facility] 08:25:00 - [facility] Pfizer COVID-19 Pfizer COVID-19 2021-05-24 [facility] 08:25:00 [facility] Pfizer COVID-19 Pfizer COVID-19 2021-05-24 [facility] 08:25:00 - [facility] Pfizer COVID-19 Pfizer COVID-19 2021-05-24 [facility] 08:25:00 [facility] Pfizer COVID-19 Pfizer COVID-19 2021-05-24 [facility] 08:25:00 - [facility] Pfizer COVID-19 Pfizer COVID-19 2021-05-24 [facility] 08:25:00 [facility] Pfizer COVID-19 Pfizer COVID-19 2021-05-24 [facility] 08:25:00 [facility] Pfizer COVID-19 Pfizer COVID-19 2021-05-24 [facility] 08:25:00 - [facility] Pfizer COVID-19 Pfizer COVID-19 2021-05-24 [facility] 08:25:00 [facility] Pfizer COVID-19 Pfizer COVID-19 2021-05-24 [facility] 08:25:00 [facility] Pfizer COVID-19 Pfizer COVID-19 2021-05-24 [facility] 08:25:00 - [facility] Pfizer COVID-19 Pfizer COVID-19 2021-05-24 [facility] 08:25:00 [facility] Pfizer COVID-19 Pfizer COVID-19 2021-03-24 [facility] 08:24:00 [facility] Pfizer COVID-19 Pfizer COVID-19 2021-03-24 [facility] 08:24:00 - [facility] Pfizer COVID-19 Pfizer COVID-19 2021-03-24 [facility] 08:24:00 [facility] Pfizer COVID-19 Pfizer COVID-19 2021-03-24 [facility] 08:24:00 [facility] Pfizer COVID-19 Pfizer COVID-19 2021-03-24 [facility] 08:24:00 [facility] Pfizer COVID-19 Pfizer COVID-19 2021-03-24 [facility] 08:24:00 [facility] Pfizer COVID-19 Pfizer COVID-19 2021-03-24 [facility] 08:24:00 [facility] Pfizer COVID-19 Pfizer COVID-19 2021-03-24 [facility] 08:24:00 [facility] Pfizer COVID-19 Pfizer COVID-19 2021-03-24 [facility] 08:24:00 [facility] Pfizer COVID-19 Pfizer COVID-19 2021-03-24 [facility] 08:24:00 [facility] Pfizer COVID-19 Pfizer COVID-19 2021-03-24 Com[facility] 08:24:00 - [facility] Pfizer COVID-19 Pfizer COVID-19 2021-03-24 [facility] 08:24:00 [facility] Pfizer COVID-19 Pfizer COVID-19 2021-03-24 [facility] 08:24:00 [facility] Pfizer COVID-19 Pfizer COVID-19 2021-03-24 [facility] 08:24:00 [facility] Pfizer COVID-19 Pfizer COVID-19 2021-03-24 [facility] 08:24:00 [facility] Vital Signs Vital Name Observation Time Observation Value Comments Source height 2022-09-08 09:10:00 65 [in_i] [facility] weight 2022-09-08 09:10:00 205.5 [lb_av] [facility] temperature 2022-09-08 09:10:00 97.1 [degF] [facility] bmi 2022-09-08 09:10:00 34.19 kg/m2 [facility] oximetry 2022-09-08 09:10:00 94 % [facility] respiratory rate 2022-09-08 09:10:00 16 /min [facility] blood pressure 2022-09-08 09:10:00 129 mm[Hg] [facility] systolic [facility] blood pressure 2022-09-08 09:10:00 67 mm[Hg] [facility] diastolic [facility] height 2022-03-31 13:00:00 65 [in_i] [facility] weight 2022-03-31 13:00:00 220.2 [lb_av] [facility] temperature 2022-03-31 13:00:00 95.6 [degF] [facility] bmi 2022-03-31 13:00:00 36.64 kg/m2 [facility] height 2022-01-19 08:20:00 65 [in_i] [facility] weight 2022-01-19 08:20:00 222.4 [lb_av] [facility] bmi 2022-01-19 08:20:00 37.01 kg/m2 [facility] height 2022-01-19 08:00:00 65 [in_i] [facility] [facility] 2022-01-19 08:00:00 222.4 [lb_av] [facility] temperature 2022-01-19 08:00:00 98.0 [degF] [facility] bmi 2022-01-19 08:00:00 37.01 kg/m2 [facility] oximetry 2022-01-19 08:00:00 95 % [facility] respiratory rate 2022-01-19 08:00:00 18 /min Comm on [facility] blood pressure 2022-01-19 08:00:00 135 mm[Hg] [facility] systolic [facility] blood pressure 2022-01-19 08:00:00 73 mm[Hg] [facility] diastolic [facility] height 2021-10-08 08:00:00 65 [in_i] [facility] weight 2021-10-08 08:00:00 221.0 [lb_av] [facility] temperature 2021-10-08 08:00:00 96.7 [degF] [facility] bmi 2021-10-08 08:00:00 36.77 kg/m2 [facility] oximetry 2021-10-08 08:00:00 98 % [facility] respiratory rate 2021-10-08 08:00:00 18 /min Comm on [facility] blood pressure 2021-10-08 08:00:00 125 mm[Hg] [facility] blood pressure 2021-10-08 08:00:00 72 mm[Hg] [facility] diastolic [facility] height 2021-07-09 10:20:00 65 [in_i] [facility] weight 2021-07-09 10:20:00 224.4 [lb_av] [facility] temperature 2021-07-09 10:20:00 96.6 [degF] [facility] bmi 2021-07-09 10:20:00 37.34 kg/m2 [facility] oximetry 2021-07-09 10:20:00 95 % [facility] respiratory rate 2021-07-09 10:20:00 18 /min Comm on [facility] blood pressure 2021-07-09 10:20:00 139 mm[Hg] [facility] systolic [facility] blood pressure 2021-07-09 10:20:00 70 mm[Hg] [facility] diastolic [facility] height 2021-04-22 15:30:00 65 [in_i] [facility] weight 2021-04-22 15:30:00 228 [lb_av] [facility] bmi 2021-04-22 15:30:00 37.94 kg/m2 [facility] blood pressure 2021-04-22 15:30:00 138 mm[Hg] [facility] systolic [facility] blood pressure 2021-04-22 15:30:00 88 mm[Hg] [facility] diastolic [facility] height 2021-03-30 16:00:00 65.00 [in_i] [facility] weight 2021-03-30 16:00:00 228 [lb_av] [facility] bmi 2021-03-30 16:00:00 37.94 kg/m2 [facility] blood pressure 2021-03-30 16:00:00 138 mm[Hg] [facility] systolic [facility] blood pressure 2021-03-30 16:00:00 87 mm[Hg] [facility] diastolic [facility] Procedures This patient has no known procedures. Encounters Start End Encounter Admission Attending Care Care Encounter Source Date/Time Date/Time Type Type Clinicians Facility Department ID 2022-09-08 Outpatient Sotelo, STLMLC STLMLC [id number] Common 08:51:01 Avnee [facility] 2022-09-06 Outpatient Sotelo, STKARLIELC STLMLC [id number] Common 11:11:01 Avnee [facility] 2022-01-19 Outpatient Sotelo, STKARLIELC STLMLC [id number] Common 08:06:02 Avnee [facility] 2022-01-15 Outpatient Sotelo, STLMLC STLC [id number] Common 10:11:02 Avnee [facility] 2022-01-11 Outpatient Sotelo, STLMLC STLMLC [id number] Common 11:53:01 Avnee [facility] 2021-11-18 Outpatient Sotelo, STLMLC STLMLC [id number] Common 14:26:36 Avnee 21199 [facility] 2021-11-18 Outpatient Sotelo, STLMLC STLMLC [id number] Common 14:24:53 Avnee 81898 [facility] 2021-11-18 Outpatient Sotelo, STLMLC STLMLC [id number] Common 13:43:56 Avnee [facility] 2021-11-18 Outpatient Sotelo, STLMLC STLMLC [id number] Common 13:35:15 Avnee [facility] 2021-11-18 Outpatient Sotelo, STLMLC STLMLC [id number] Common 13:32:13 Avnee 8[address]06 [facility] 2021-11-18 Outpatient Sotelo, STLMLC STLMLC [id number] Common 13:30:12 Avnee 79716 [facility] 2021-11-18 Outpatient Sotelo, STLMLC STLMLC [id number] Common 13:11:07 Avnee 00424 [facility] 2021-11-18 Outpatient Sotelo, STLMLC STLMLC [id number] Common 13:02:46 Avnee [address] [facility] 2021-11-18 Outpatient STLMLC STLMLC [id number] Common 13:00:34 50285 [facility] 2022-09-23 2022-09-23 (TEL) STLMLC STLMLC [id number] Co mmon 00:00:00 00:00:00 [facility] 2022-09-10 2022-09-10 (INJ) STLMLC STLMLC [id number] Co mmon 00:00:00 00:00:00 Injection Spir [facility] 2022-09-08 2022-09-08 OFFICE STLMLC STLMLC [id number] Co mmon 00:00:00 00:00:00 VISIT [facility] 4 [facility] 2022-09-08 2022-09-08 (TEL) STLMLC STLMLC [id number] Co mmon 00:00:00 00:00:00 [facility] 2022-09-03 2022-09-03 Outpatient FOG_William AO AO [id number] Pam 00:00:00 00:00:00 Carmencita [id number] [facility] 2022-09-03 2022-09-03 Tate Romero [facility] [place] - Ortho [id number] Pam 00:00:00 00:00:00 Nicolasa Longoria MD: [id number] FOG_Ofc dic [facility] Spo [facility], [place] [address] , Ph. [phone] 2022-08-30 2022-08-30 Outpatient FOG_Jhonatan ALEXANDER AOSM [id number] Pam 00:00:00 00:00:00 Carmencita [id number] [facility] 2022-08-23 2022-08-23 (TEL) [facility] [id number] Co mmon 00:00:00 00:00:00 [facility] 2022-05-21 2022-05-21 Outpatient FOG_Jhonatan ALEXANDER AOSM [id number] Pam 00:00:00 00:00:00 Carmencita [id number] [facility] 2022-04-16 2022-04-16 Outpatient FOG_Jhonatan KHANSM [id number] Pam 04:31:00 04:31:00 Carmencita [id number] [facility] 2022-04-09 2022-04-09 Outpatient FOG_Jhonatan KHANSM [id number] Pam 11:21:00 11:21:00 Carmencita [id number] [facility] 2022-04-09 2022-04-09 Tate ALEXANDER [place] - Ortho [id number] Pam 00:00:00 00:00:00 Nicolasa Longoria MD: [id number] FOG_Ofc dic [facility], [place] [address] , Ph. [phone] 2022-04-09 2022-04-09 Outpatient LongoriaBENJAMIN mendieta ERINMIGUEL [id number] 00:00:00 00:00:00 Tate Romero [id number] 2022-03-31 2022-03-31 OFFICE [facility] [id number] Co mmon 00:00:00 00:00:00 VISIT EST Spir it PT LEVEL 3 - [facility] 2022-03-29 2022-03-29 Outpatient FOG_Jhonatan KHANSM [id number] Pam 12:29:00 12:29:00 Carmencita [id number] [facility] 2022-03-16 2022-03-16 (TEL) STLMLC STLMLC [id number] Co mmon 00:00:00 00:00:00 [facility] 2022-03-16 2022-03-16 (TEL) STLMLC STLMLC [id number] Co mmon 00:00:00 00:00:00 [facility] 2022-03-10 2022-03-10 (TEL) STLMLC STLMLC [id number] Co mmon 00:00:00 00:00:00 [facility] 2022-01-20 2022-01-20 (TEL) STLMLC STLMLC [id number] Co mmon 00:00:00 00:00:00 [facility] 2022-01-19 2022-01-19 WELCOME TO STLMLC STLMLC [id number] Common 00:00:00 00:00:00 MEDICARE Rakeli t PREV PHY - CHI EXAM [facility] 2022-01-19 2022-01-19 OFFICE STLMLC STLMLC [id number] Co mmon 00:00:00 00:00:00 VISIT [facility] PT - CHI LEVEL 4 [facility] 2021-11-17 2021-11-17 (TEL) STLMLC STLMLC [id number] Co mmon 00:00:00 00:00:00 [facility] 2021-11-13 2021-11-13 (TEL) STLMLC STLMLC [id number] Co mmon 00:00:00 00:00:00 [facility] 2021-10-08 2021-10-08 PREV VISIT STLMLC STLMLC [id number] Common 00:00:00 00:00:00 EST AGE [facility] [id number] - CHI [facility] 2021-07-09 2021-07-09 OFFICE STLMLC STLMLC [id number] Co mmon 00:00:00 00:00:00 VISIT [facility] ESTAB PT - CHI LEVEL 4 [facility] 2021-05-28 2021-05-28 (TEL) STLMLC STLMLC [id number] Co mmon 00:00:00 00:00:00 [facility] 2021-04-22 2021-04-22 OFFICE STLMLC STLMLC [id number] Co mmon 00:00:00 00:00:00 VISIT EST Spir it PT LEVEL 3 [facility] 2021-04-17 2021-04-17 (TEL) STLMLC STLMLC [id number] Co mmon 00:00:00 00:00:00 [facility] 2021-04-10 2021-04-10 (TEL) STLMLC STLMLC [id number] Co mmon 00:00:00 00:00:00 [facility] 2021-04-01 2021-04-01 (TEL) STLMLC STLMLC [id number] Co mmon 00:00:00 00:00:00 [facility] 2021-03-30 2021-03-30 OFFICE STLMLC STLMLC [id number] Co mmon 00:00:00 00:00:00 VISIT EST Spir it PT LEVEL 3 [facility] 2021-03-27 2021-03-27 Outpatient STLMLC STLMLC [id number] Common 00:00:00 00:00:00 [facility] 2021-03-19 2021-03-19 Outpatient STLMLC STLMLC [id number] Common 00:00:00 00:00:00 [facility] 2021-03-18 2021-03-18 Outpatient STLMLC STLMLC [id number] Common 00:00:00 00:00:00 [facility] 2021-03-04 2021-03-04 Outpatient STLMLC STLMLC [id number] Common 00:00:00 00:00:00 [facility] 2021-02-27 2021-02-27 Outpatient STLMLC STLMLC [id number] Common 00:00:00 00:00:00 [facility] 2020-08-20 2020-08-20 Outpatient CHRISTINE [facility] [id number] [facility] 07:20:00 23:59:00 CLAUS 2020-05-21 2020-05-21 Outpatient MONTY De Los Santos [id number] [facility] 12:00:00 12:00:00 Cruz Deras [facility] [place], operated [facility] Results This patient has no known results.
[2022-11-07 22:32] LABS: Absolute Lymphocytes (CBC) 1.1 K/uL (0.7-4.9); Hematocrit 36.5 % (36.0-45.0); Lymphocytes % 22.5 % (15.3-44.8); MCV 87.5 fL (80-100); MPV 9.4 fL (7.6-11.3); RBC Red Blood Cell Count 4.18 M/uL (3.86-4.86)
[2022-11-07 22:34] LABS: Protime INR 0.95
[2022-11-07 22:45] LABS: Albumin 3.7 g/dL (3.4-5.0); Bilirubin Direct 0.3 mg/dL (0-0.2); Magnesium 1.8 mg/dL (1.6-2.4); Potassium 3.3 mmol/L (3.5-5.1); Protein, Total 7.5 g/dL (6.4-8.2)
[2022-11-07 23:27] LABS: SARS-CoV-2 Antigen Rapid Res Negative (Negative)
[2022-11-08 00:42] LABS: Urine Blood Trace-intact (Negative); Urine Glucose Negative (Negative); Urine Protein Negative (Negative); Urine Specific Gravity <=1.005 (1.005-1.030); Urine pH 5.5 (5.0-7.0)
[2022-11-08] MEDS ORDERED: ASPIRIN EC 81 MG TAB PO ONE (01:12)
[2022-11-08] MEDS ORDERED: ACETAMINOPHEN 325 MG TABLET ONE (01:12)
--- NOTE | 2022-11-08 02:49 | ER ---
Nurse's Notes [facility] Name: Hayde Esquivel Age: 67 yrs Sex: Female : 1955 Arrival Date: 11/07/2022 Time: 21:40 Bed 5 Private MD: Diagnosis: Chest pain, unspecified;Low back pain Presentation: 11/07 22:04 Chief complaint: Patient states: sudden onset of sharp, non-radiating pain across lower kb3 back that wrapped around both sides into upper abdomen at 2030 tonight. Reports pain lasted approximately 30 minutes with associated nausea and dizziness but has mostly resolved. Denies urinary symptoms. Coronavirus screen: Vaccine status: Patient reports receiving the 2nd dose of the covid vaccine. Client denies travel out of the [place] in the last 14 days. Ebola Screen: Patient negative for fever greater than or equal to 101.5 degrees Fahrenheit, and additional compatible Ebola Virus Disease symptoms Patient denies exposure to infectious person. Patient denies travel to an Ebola-affected area in the 21 days before illness onset. Initial Sepsis Screen: Does the patient meet any 2 criteria? No. Patient's initial sepsis screen is negative. Does the patient have a suspected source of infection? No. Patient's initial sepsis screen is negative. Risk Assessment: Do you want to hurt yourself or someone else? Patient reports no desire to harm self or others. Onset of symptoms was November 07, 2022 at 20:30. 22:04 Method Of Arrival: Ambulatory kb3 22:04 Acuity: NATHAN 3 kb3 22:24 Note pt reports recently drove over 1500 miles from [place]. Triage Assessment: 22:06 General: Appears in no apparent distress. Behavior is calm, cooperative. Pain: kb3 Complains of pain in lumbar area, left low back and right low back Pain radiates to epigastric area, right upper quadrant and left upper quadrant Pain currently is 5 out of 10 on a pain scale. Quality of pain is described as sharp. Historical: - Allergies: 22:06 Codeine; kb3 22:06 PENICILLINS; kb3 22:06 Mobic; kb3 22:06 Sulfa (Sulfonamide Antibiotics); kb3 - PMHx: 22:06 NIDDM; Hypertensive disorder; Hypercholesterolemia; Anxiety; GERD; kb3 - PSHx: 22:06 Total abdominal hysterectomy; Bladder Suspension; Knee Sx; Back Sx; kb3 - Immunization history:: Adult Immunizations up to date, Client reports receiving the 2nd dose of the Covid vaccine, Last tetanus immunization: up to date. - Social history:: Smoking status: Patient denies any tobacco usage or history of. Screenin/16 00:15 [facility] ED Fall Risk Assessment (Adult) History of falling in the last 3 months, kl including since admission No falls in past 3 months (0 pts) Confusion or Disorientation No (0 pts) Intoxicated or Sedated Impaired Gait No (0 pts) Mobility Assist Device Used No (0 pt) Altered Elimination No (0 pt). Abuse screen: Denies threats or abuse. Nutritional screening: No deficits noted. Tuberculosis screening: No symptoms or risk factors identified. Assessment: 11/07 22:25 General: Appears uncomfortable, well groomed, well developed, Behavior is calm, kl cooperative. Pain: Complains of pain in left upper quadrant and right upper quadrant and epigastric area and back Pain currently is 7 out of 10 on a pain scale. Neuro: No deficits noted. Level of Consciousness is awake, alert, obeys commands, Oriented to person, place, time, situation. Cardiovascular: Reports chest pain, shortness of breath, Capillary refill < 3 seconds Rhythm is sinus rhythm. Respiratory: Airway is patent Trachea midline Respiratory effort is even, unlabored, Respiratory pattern is regular, symmetrical, Breath sounds are clear bilaterally. GI: No deficits noted. No signs and/or symptoms were reported involving the gastrointestinal system. : No deficits noted. No signs and/or symptoms were reported regarding the genitourinary system. 23:17 Reassessment: Patient appears in no apparent distress at this time. Patient and/or kl family updated on plan of care and expected duration. Pain level reassessed. Patient is alert, oriented x 3, equal unlabored respirations, skin warm/dry/pink. Patient states feeling better. Patient states symptoms have improved. 11/08 03:05 Reassessment: Patient appears in no apparent distress at this time. Patient and/or aa9 family updated on plan of care and expected duration. Pain level reassessed. Patient is alert, oriented x 3, equal unlabored respirations, skin warm/dry/pink. pt denies concerns, understands discharge instructions. Vital Signs: 01/15 22:04 BP 160 / 84; Pulse 86; Resp 20; Temp 98.3; Pulse Ox 99% ; Weight 92.53 kg; Height 5 ft. kb3 5 in. (165.10 cm); Pain 5/10; 22:26 BP 135 / 74; Pulse 75; Resp 18; Pulse Ox 95% on R/A; kl 22:44 BP 129 / 71; Pulse Ox 94% on R/A; kl 11/08 00:15 BP 131 / 70; Pulse 72; Resp 20; Pulse Ox 94% ; kl 02:45 BP 131 / 75; Pulse 75; Resp 20; Pulse Ox 96% on R/A; aa9 11/07 22:04 Body Mass Index 33.95 (92.53 kg, 165.10 cm) kb3 ED Course: 11/07 21:40 Patient arrived in ED. ja2 21:49 Deandre Calvo MD is Attending Physician. kdr 22:06 Triage completed. kb3 22:06 Arm band placed on right wrist. kb3 22:16 No provider procedures requiring assistance completed. Inserted saline lock: 20 gauge kl in right antecubital area, using aseptic technique. Blood collected. 22:28 Lipase Sent. kl 22:28 D-Dimer Sent. kl 22:28 Protime (+inr) Sent. kl 22:28 Ptt, Activated Sent. kl 22:28 BMP Sent. kl 22:28 CPK Sent. kl 22:28 Hepatic Function Sent. kl 22:28 Magnesium Sent. kl 22:28 NT PRO-BNP Sent. kl 22:28 Troponin HS Sent. kl 11/08 00:32 Troponin High Sensitivity Sent. kl 00:39 Troponin High Sensitivity Sent. aa9 01:14 CT Abd/Pelvis - IV Contrast Only In Process Unspecified. EDMS 02:47 Tip Cazares DO is Referral Physician. kdr 03:05 Patient has correct armband on for positive identification. Placed in gown. Bed in low aa9 position. Call light in reach. Side rails up X2. 03:05 IV discontinued, intact, bleeding controlled, No redness/swelling at site. Pressure aa9 dressing applied. Administered Medications: 01:15 Drug: Aspirin Chewable Tablet 324 mg Route: PO; kl 01:15 Drug: Tylenol 650 mg Route: PO; kl Medication: 03:05 VIS not applicable for this client. aa9 Outcome: 02:48 Discharge ordered by . nydia 03:05 Discharged to home ambulatory, with significant other. aa9 03:05 Condition: stable 03:05 Discharge instructions given to patient, family, Instructed on discharge instructions, follow up and referral plans. Demonstrated understanding of instructions, follow-up care. 03:07 Patient left the ED. aa9 Signatures: Dispatcher [employer] EDCarmen Ruiz, RN RN Deandre Price MD MD kdr Alexander, Jessica ja2 Avalos, Aylin, RN RN aa9 Yara Quintanilla, MICHAEL RN kb3
--- NOTE | 2022-11-08 02:49 | EDPHYS ---
Physician Documentation [facility] Name: Hayde Esquivel Age: 67 yrs Sex: Female : 1955 Arrival Date: 11/07/2022 Time: 21:40 Bed 5 Private MD: ED Physician Deandre Calvo HPI: 11/08 01:03 This 67 yrs old Female presents to ER via Ambulatory with complaints of Back Pain, kdr Flank Pain, Abdominal Pain, Fainting. 01:03 Patient had acute onset of sharp pain in her low back that radiated around both sides kdr into her upper abdomen about 830 tonight. Patient states that this lasted about 30 minutes and had associated nausea and dizziness. The symptoms have last resolved at this time. She has not had anything like this before. She otherwise appears nontoxic and not emergent at this time.. Onset: The symptoms/episode began/occurred suddenly, just prior to arrival. Severity of symptoms: At their worst the symptoms were moderate severe just prior to arrival, in the emergency department the symptoms have resolved. The patient has not experienced similar symptoms in the past. The patient has not recently seen a physician. Historical: - Allergies: 11/07 22:06 Codeine; kb3 22:06 PENICILLINS; kb3 22:06 Mobic; kb3 22:06 Sulfa (Sulfonamide Antibiotics); kb3 - PMHx: 22:06 NIDDM; Hypertensive disorder; Hypercholesterolemia; Anxiety; GERD; kb3 - PSHx: 22:06 Total abdominal hysterectomy; Bladder Suspension; Knee Sx; Back Sx; kb3 - Immunization history:: Adult Immunizations up to date, Client reports receiving the 2nd dose of the Covid vaccine, Last tetanus immunization: up to date. - Social history:: Smoking status: Patient denies any tobacco usage or history of. ROS: 11/08 01:03 Constitutional: Negative for fever, chills, and weight loss, Eyes: Negative for injury, kdr pain, redness, and discharge, Neck: Negative for injury, pain, and swelling, Cardiovascular: Negative for chest pain, palpitations, and edema, Respiratory: Negative for shortness of breath, cough, wheezing, and pleuritic chest pain, Back: Negative for injury and pain, : Negative for injury, bleeding, discharge, and swelling, MS/Extremity: Negative for injury and deformity, Skin: Negative for injury, rash, and discoloration, Neuro: Negative for headache, weakness, numbness, tingling, and seizure activity. Psych: Negative for depression, anxiety, suicide ideation, homicidal ideation, and hallucinations, Allergy/Immunology: Negative for hives, rash, and allergies, Endocrine: Negative for neck swelling, polydipsia, polyuria, polyphagia, and marked weight changes, Hematologic/Lymphatic: Negative for swollen nodes, abnormal bleeding, and unusual bruising. Back: Positive for pain at rest, of the low back area, Rate sways around her back wrapping into her upper abdomen. 01:03 Abdomen/GI: Positive for abdominal pain, nausea. kdr 01:03 Neuro: Positive for dizziness, briefly. Exam: 01:03 Constitutional: This is a well developed, well nourished patient who is awake, alert, kdr and in no acute distress. Head/Face: Normocephalic, atraumatic. Eyes: Pupils equal round and reactive to light, extra-ocular motions intact. Lids and lashes normal. Conjunctiva and sclera are non-icteric and not injected. Cornea within normal limits. Periorbital areas with no swelling, redness, or edema. Neck: Trachea midline, no thyromegaly or masses palpated, and no cervical lymphadenopathy. Supple, full range of motion without nuchal rigidity, or vertebral point tenderness. No Meningismus. Chest/axilla: Normal chest wall appearance and motion. Nontender with no deformity. No lesions are appreciated. Cardiovascular: Regular rate and rhythm with a normal S1 and S2. No gallops, murmurs, or rubs. Normal PMI, no JVD. No pulse deficits. Respiratory: Lungs have equal breath sounds bilaterally, clear to auscultation and percussion. No rales, rhonchi or wheezes noted. No increased work of breathing, no retractions or nasal flaring. Abdomen/GI: Soft, non-tender, with normal bowel sounds. No distension or tympany. No guarding or rebound. No evidence of tenderness throughout. Back: No spinal tenderness. No costovertebral tenderness. Full range of motion. Skin: Warm, dry with normal turgor. Normal color with no rashes, no lesions, and no evidence of cellulitis. MS/ Extremity: Pulses equal, no cyanosis. Neurovascular intact. Full, normal range of motion. Neuro: Awake and alert, GCS 15, oriented to person, place, time, and situation. Cranial nerves II-XII grossly intact. Motor strength 5/5 in all extremities. Sensory grossly intact. Cerebellar exam normal. Normal gait. Psych: Awake, alert, with orientation to person, place and time. Behavior, mood, and affect are within normal limits. Vital Signs: 11/07 22:04 BP 160 / 84; Pulse 86; Resp 20; Temp 98.3; Pulse Ox 99% ; Weight 92.53 kg; Height 5 ft. kb3 5 in. (165.10 cm); Pain 5/10; 22:26 BP 135 / 74; Pulse 75; Resp 18; Pulse Ox 95% on R/A; kl 22:44 BP 129 / 71; Pulse Ox 94% on R/A; kl 11/08 00:15 BP 131 / 70; Pulse 72; Resp 20; Pulse Ox 94% ; kl 02:45 BP 131 / 75; Pulse 75; Resp 20; Pulse Ox 96% on R/A; aa9 11/07 22:04 Body Mass Index 33.95 (92.53 kg, 165.10 cm) kb3 MDM: 01:03 Data reviewed: vital signs, nurses notes, lab test result(s), radiologic studies. kdr Consideration of Admission/Observation Patient was admitted/placed on observation. Escalation of care including admission/observation considered. 02:48 Patient medically screened. kdr 02:48 ED course: Reviewed all laboratory data with the patient and her at the [facility] bedside. We discussed all the findings. Patient is seeing Dr. Catherine on a regular basis for her cardiac status. She also sees her primary care physician, Dr. Cazares on a regular basis. Based on her close contact with the medical system and her ongoing evaluation process. Patient felt comfortable going home and following up given the negative results for the visit here. The patient along with her reviewed with this plan discharge and follow-up and were happy with the care provided the plan as stated. 11/07 22:00 Order name: CBC with Diff; Complete Time: 22:58 kdr 11/08 00:08 Interpretation: RBC 4.18. kdr 11/07 22:15 Order name: BMP; Complete Time: 22:58 kl 11/07 22:15 Order name: CPK; Complete Time: 22:58 kl 11/07 22:15 Order name: Hepatic Function; Complete Time: :58 11/07 22:15 Order name: Magnesium; Complete Time: :58 11/07 22:15 Order name: NT PRO-BNP; Complete Time: :58 11/07 22:15 Order name: Troponin HS; Complete Time: :58 11/07 22:18 Order name: Protime (+inr); Complete Time: :58 11/07 22:18 Order name: Ptt, Activated; Complete Time: :58 11/07 22:18 Order name: D-Dimer; Complete Time: :58 11/07 22:26 Order name: Lipase; Complete Time: :58 EDMS 11/07 22:00 Order name: IV Saline Lock; Complete Time: 00:40 [facility] 11/07 22:00 Order name: Labs collected and sent; Complete Time: 00:40 [facility] 11/07 22:15 Order name: EKG; Complete Time: 22:16 11/07 22:15 Order name: Cardiac monitoring; Complete Time: 22:25 11/07 22:15 Order name: EKG - Nurse/Tech; Complete Time: 22:16 11/07 22:15 Order name: O2 Per Protocol; Complete Time: :25 11/07 22:15 Order name: O2 Sat Monitoring; Complete Time: 22:25 11/07 22:36 Order name: SARS RAPID; Complete Time: 00:06 11/08 00:17 Order name: CT Abd/Pelvis - IV Contrast Only kdr 11/08 00:21 Order name: Troponin High Sensitivity; Complete Time: 01:04 11/08 00:43 Order name: Urine Dipstick-Ancillary; Complete Time: 00:44 EDMS Administered Medications: 01:15 Drug: Aspirin Chewable Tablet 324 mg Route: PO; 01:15 Drug: Tylenol 650 mg Route: PO; Disposition Summary: 11/08/22 02:48 Discharge Ordered Location: Home kdr Problem: new kdr Symptoms: are resolved kdr Condition: Stable kdr Diagnosis - Chest pain, unspecified kdr - Low back pain kdr Followup: kdr - With: Cazares, Tip, DO - When: 48 Hours - Reason: If symptoms return, Further diagnostic work-up, Recheck today's complaints, Continuance of care, Re-evaluation by your physician Discharge Instructions: - Discharge Summary Sheet kdr - Acute Back Pain, Adult kdr - Nonspecific Chest Pain, Adult, [id number] kdr Forms: - Medication Reconciliation Form kdr - Thank You Letter kdr Signatures: Dispatcher [employer] EDCarmen Ruiz, Deandre Wilks RN, MD MD kdr Bradberry, Kelly, RN RN kb3 Nany Haider PA-C PAJanes sb4 Corrections: (The following items were deleted from the chart) 11/07 22:26 22:01 COMPREHENSIVE METABOLIC PANEL+C.LAB.BRZ ordered. EDMS EDMS 22: 22:01 LIPASE+C.LAB.BRZ ordered. EDMS EDMS
[2022-11-08 03:26] VITALS: TEMP 98.3
[2022-11-08 03:35] VITALS: BP 131/75; O2SAT 96
--- NOTE | 2022-11-08 14:54 | RAD REPORT ---
EXAM DESCRIPTION: CT - Abdomen Pelvis W Contrast - 11/08/2022 6:59 am CLINICAL HISTORY: The patient is 67 years old and is Female; abdominal pain TECHNIQUE: Axial computed tomography images of the abdomen and pelvis with intravenous contrast. S agittal and coronal reformatted images were created and reviewed. This CT exam was performed using one or more of the following dose reduction techniques: automated exposure control, adjustment of t he mA and/or kV according to patient size, and/or use of iterative reconstruction technique. COMPARISON: No relevant prior studies available. FINDINGS: Lung bases: Unremarkable. No mass. No consolidation. ABDOMEN: Liver: Unremarkable. No mass. Gallbladder and bile ducts: Gallbladder is surgically absent. No ductal dilation. Pancreas: Unremarkable. No mass. No ductal dilation. Spleen: Unremarkable. No splenomegaly. Adrenals: Unremarkable. No mass. Kidneys and ureters: Unremarkable. No solid mass. No hydronephrosis. Stomach and bowel: Scattered colonic diverticula. No obstruction. No mucosal thickening. PELVIS: Appendix: No findings to suggest acute appendicitis. Bladder: Unremarkable.. Reproductive: Unremarkable as visualized. ABDOMEN and PELVIS: Intraperitoneal space: Unremarkable. No free air. No significant fluid collection. Bones/joints: No acute fracture. No dislocation. Soft tissues: Unremarkable. Vasculature: Unremarkable. No abdominal aortic aneurysm. Lymph nodes: Unremarkable. No enlarged lymph nodes. IMPRESSION: No acute finding in the abdomen/pelvis. Electronically signed by: Jered Gallo MD 11/08/2022 1:32 AM WAREHOUSE ORDER PICKER Due to temporary technical issues with the PACS/Fluency reporting system, reports are being signed by the in house radiologists without review as a courtesy to insure prompt reporting. The interpreting radiologist is fully responsible for the content of the report
--- NOTE | 2022-11-08 17:32 | EKG ---
Test Date: 2022-11-07 Test Time: 22:04:32 [place]: [place] MEASUREMENT RESULTS: Intervals: Rate: 75 TN: 212 QRSD: 92 QT: 394 QTc: 439 [place]: P: 31 TN: 212 QRS: 2 T: 38 INTERPRETIVE STATEMENTS: Sinus rhythm with 1st degree AV block T wave abnormality, consider anterior ischemia Abnormal ECG Compared to ECG 11/24/2006 07:38:41 T-wave abnormality now present Possible ischemia now present Electronically Signed On 11-08-22 17:30:48 TRANSFER DRIVER by Mustapha Alva
== END 2022-11-08 03:07 | disposition home or self-care (01) ==
LOC: ER 21:36
DX: R07.89 Other chest pain (principal); M54.50 Low back pain, unspecified; E11.9 Type 2 diabetes mellitus without complications; I10 Essential (primary) hypertension; Z20.822 Contact with and (suspected) exposure to COVID-19; Z88.0 Allergy status to penicillin; Z88.2 Allergy status to sulfonamides; Z88.5 Allergy status to narcotic agent
CPT/HCPCS: 93005; 85025; 80048; 36415; 83735; 82550; 85610; 85379; 80076; 85730; 81003; 84484 ×2; 83690; 83880; 74177; 87811; Q9967; 99284

== ENCOUNTER 2023-05-09 10:23 | Emergency (ER) | payer OTHER ==
--- NOTE | 2023-05-09 16:42 | EDPHYS ---
Physician Documentation [facility] Name: Hayde Esquivel Age: 68 yrs Sex: Female : 1955 Arrival Date: 05/09/2023 Time: 10:23 Bed 17 Private MD: RYAN Physician José Miguel Escobar HPI: 05/09 11:42 This 68 yrs old Female presents to ER via Wheelchair with complaints of Foot Pain - kb right. 11:42 The patient presents with pain. The complaints affect the right foot. Context: The kb problem was sustained at home, resulted from an unknown cause, the patient can partially bear weight, uses a walker. Onset: The symptoms/episode began/occurred 4 day(s) ago. Modifying factors: The symptoms are alleviated by nothing, the symptoms are aggravated by movement. Associated signs and symptoms: The patient has no apparent associated signs or symptoms. Severity of symptoms: At their worst the symptoms were mild, moderate, in the emergency department the symptoms are unchanged. The patient has not experienced similar symptoms in the past. The patient has not recently seen a physician. 11:42 Patient reports right foot pain that started 4 days ago. States she came in to get it kb checked out because she is scheduled to have a left knee replacement this week. Denies any injury or trauma. States she may have been favoring the left leg and putting more pressure on the right causing the pain.. Historical: - Allergies: 10:37 Codeine; eh3 10:37 Mobic; eh3 10:37 PENICILLINS; eh3 10:37 Sulfa (Sulfonamide Antibiotics); eh3 10:37 Macrodantin; eh3 10:37 Statins; eh3 - PMHx: 10:37 Anxiety; GERD; Hypercholesterolemia; Hypertensive disorder; NIDDM; eh3 - PSHx: 10:37 back sx; bladder suspension; knee sx; Total abdominal hysterectomy; eh3 - Immunization history:: Adult Immunizations up to date. - Social history:: Smoking status: Patient denies any tobacco usage or history of. Patient/guardian denies using alcohol. ROS: 11:41 Constitutional: Negative for fever, chills, and weight loss. kb 11:41 MS/extremity: Positive for pain, of the right foot. 11:41 All other systems are negative. Exam: 11:41 Constitutional: This is a well developed, well nourished patient who is awake, alert, kb and in no acute distress. Head/Face: Normocephalic, atraumatic. ENT: Moist Mucous membranes Cardiovascular: Regular rate and rhythm with a normal S1 and S2. No gallops, murmurs, or rubs. No pulse deficits. Respiratory: Respirations even and unlabored. No increased work of breathing. Talking in full sentences Skin: Warm, dry with normal turgor. Normal color. Neuro: Awake and alert, GCS 15, oriented to person, place, time, and situation. Moves all extremities. Normal gait. 11:41 Musculoskeletal/extremity: Extremities: grossly normal except: noted in the right foot: pain, tenderness, ROM: intact in all extremities, Circulation is intact in all extremities. Sensation intact. Weight bearing: can bear weight with assistance only. Vital Signs: 10:32 BP 117 / 65; Pulse 74; Resp 16; Temp 97.7; Pulse Ox 98% ; Weight 99.79 kg; Height 5 ft. eh3 3 in. ; 11:25 BP 110 / 50; Pulse 67; Resp 16; Pulse Ox 95% on R/A; Weight 99.79 kg; Height 5 ft. 3 sg5 in. ; Pain 5/10; 12:25 BP 112 / 48; Pulse 66; Resp 16; Pulse Ox 96% on R/A; eh3 12:57 BP 116 / 50; Pulse 78; Resp 16; Pulse Ox 97% on R/A; sg5 13:12 BP 85 / 75; Pulse 74; Resp 24; Pulse Ox 94% on 2 lpm NC; sg5 11:25 Body Mass Index 38.97 (99.79 kg, 160.02 cm) sg5 11:25 Pain Scale: Adult sg5 MDM: 10:32 Patient medically screened. kb 11:42 Data reviewed: vital signs, nurses notes. kb 12:34 Differential diagnosis: fracture, sprain, arthritis. Independent interpretation of the kb following test(s) in the Emergency Department X-Ray: My interpretation is no acute fracture. Counseling: I had a detailed discussion with the patient and/or guardian regarding: the historical points, exam findings, and any diagnostic results supporting the discharge/admit diagnosis, radiology results, the need for outpatient follow up, a family practitioner, to return to the emergency department if symptoms worsen or persist or if there are any questions or concerns that arise at home. 05/09 12:35 Order name: Loi Wrap kb Administered Medications: No medications were administered Disposition Summary: 05/09/23 12:35 Discharge Ordered Location: Home kb Condition: Stable kb Diagnosis - Pain in right foot kb Followup: kb - With: Emergency Department - When: As needed - Reason: Worsening of condition Followup: kb - With: Private Physician - When: 2 - 3 days - Reason: Recheck today's complaints, Continuance of care, Re-evaluation by your physician Discharge Instructions: - Discharge Summary Sheet kb - Musculoskeletal Pain kb Forms: - Medication Reconciliation Form kb - Thank You Letter kb - Antibiotic Education kb - Prescription Opioid Use kb - Patient Portal Instructions kb Signatures: Marta Sanderson FNP-C FNP-Angie Chau, RN RN eh3
--- NOTE | 2023-05-09 16:42 | ER ---
Nurse's Notes [facility] Name: Hayde Esquivel Age: 68 yrs Sex: Female : 1955 Arrival Date: 05/09/2023 Time: 10:23 Bed 17 [facility] MD: Diagnosis: Pain in right foot Presentation: 05/09 10:32 Chief complaint: Patient states: right foot pain, nausea and lightheaded since Tuesday eh3 morning. Coronavirus screen: Vaccine status: Patient reports receiving the 2nd dose of the covid vaccine. Ebola Screen: No symptoms or risks identified at this time. Initial Sepsis Screen: Does the patient meet any 2 criteria? No. Patient's initial sepsis screen is negative. Does the patient have a suspected source of infection? No. Patient's initial sepsis screen is negative. Risk Assessment: Do you want to hurt yourself or someone else? Patient reports no desire to harm self or others. Onset of symptoms was May 09, 2023. 10:32 Method Of Arrival: Wheelchair [facility] 10:32 Acuity: NATHAN 3 eh3 Triage Assessment: 10:37 General: Appears in no apparent distress. uncomfortable, Behavior is calm, cooperative, eh3 appropriate for age. Pain: Complains of pain in right foot Pain currently is 7 out of 10 on a pain scale. Historical: - Allergies: 10:37 Codeine; eh3 10:37 Mobic; eh3 10:37 PENICILLINS; eh3 10:37 Sulfa (Sulfonamide Antibiotics); eh3 10:37 Macrodantin; eh3 10:37 Statins; eh3 - PMHx: 10:37 Anxiety; GERD; Hypercholesterolemia; Hypertensive disorder; NIDDM; 3 - PSHx: 10:37 back sx; bladder suspension; knee sx; Total abdominal hysterectomy; eh3 - Immunization history:: Adult Immunizations up to date. - Social history:: Smoking status: Patient denies any tobacco usage or history of. Patient/guardian denies using alcohol. Screenin:25 [facility] ED Fall Risk Assessment (Adult) History of falling in the last 3 months, sg5 including since admission No falls in past 3 months (0 pts). Abuse screen: Denies threats or abuse. Nutritional screening: No deficits noted. Tuberculosis screening: No symptoms or risk factors identified. Assessment: 11:25 General: Appears in no apparent distress. comfortable, Behavior is calm, cooperative, sg5 appropriate for age. Pain: Complains of pain in right foot Pain currently is 5 out of 10 on a pain scale. Neuro: Level of Consciousness is awake, alert, obeys commands, Oriented to person, place, time, situation, Appropriate for age. Cardiovascular: Capillary refill < 3 seconds Patient's skin is warm and dry. Respiratory: Airway is patent Trachea midline Respiratory effort is even, unlabored. GI: No signs and/or symptoms were reported involving the gastrointestinal system. : No signs and/or symptoms were reported regarding the genitourinary system. EENT: No signs and/or symptoms were reported regarding the EENT system. Derm: No signs and/or symptoms reported regarding the dermatologic system. Musculoskeletal: Reports pain in right foot. 12:25 Reassessment: Patient appears in no apparent distress at this time. Patient and/or 3 family updated on plan of care and expected duration. Pain level reassessed. Patient is alert, oriented x 3, equal unlabored respirations, skin warm/dry/pink. Vital Signs: 10:32 BP 117 / 65; Pulse 74; Resp 16; Temp 97.7; Pulse Ox 98% ; Weight 99.79 kg; Height 5 ft. eh3 3 in. ; 11:25 BP 110 / 50; Pulse 67; Resp 16; Pulse Ox 95% on R/A; Weight 99.79 kg; Height 5 ft. 3 sg5 in. ; Pain 5/10; 12:25 BP 112 / 48; Pulse 66; Resp 16; Pulse Ox 96% on R/A; eh3 12:57 BP 116 / 50; Pulse 78; Resp 16; Pulse Ox 97% on R/A; sg5 13:12 BP 85 / 75; Pulse 74; Resp 24; Pulse Ox 94% on 2 lpm NC; sg5 11:25 Body Mass Index 38.97 (99.79 kg, 160.02 cm) sg5 11:25 Pain Scale: Adult sg5 ED Course: 10:31 Patient arrived in ED. im 10:31 Marta Sanderson FNP-C is [facility]. kb 10:32 José Miguel Escobar MD is Attending Physician. kb 10:36 Triage completed. eh3 10:37 Arm band placed on. eh3 11:06 Gupta, Jessica, RN is Primary Nurse. sg5 11:25 Patient has correct armband on for positive identification. Bed in low position. Call sg5 light in reach. Side rails up X 1. Adult w/ patient. Valuables Left with patient. Provided Education on: X-ray, scans. 13:15 No provider procedures requiring assistance completed. Patient did not have IV access sg5 during this emergency room visit. Administered Medications: No medications were administered Medication: 13:15 VIS not applicable for this client. sg5 Outcome: 12:35 Discharge ordered by . malou 13:15 Discharged to home via wheelchair, with family. sg5 13:15 Condition: good 13:15 Discharge instructions given to patient, Instructed on discharge instructions, follow up and referral plans. 13:16 Patient left the ED. sg5 Signatures: Marta Sanderson, SAFETY INVESTIGATOR/CAUSE ANALYST-C SAFETY INVESTIGATOR/CAUSE ANALYST-CkAngie Stanley, RN RN 3 Jessica Gupta, RN RN sg5 Justine Ornelas
[2023-05-09 18:10] VITALS: TEMP 97.7
[2023-05-09 18:15] VITALS: BP 85/75; O2SAT 94
--- NOTE | 2023-05-09 20:06 | RAD REPORT ---
EXAM DESCRIPTION: RAD - Foot Right 3 View - 05/09/2023 4:29 pm CLINICAL HISTORY: Right foot pain FINDINGS: No fracture or dislocation is seen Hallux valgus deformity
== END 2023-05-09 13:16 | disposition home or self-care (01) ==
LOC: ER 10:23
DX: M79.671 Pain in right foot (principal); I10 Essential (primary) hypertension; F41.9 Anxiety disorder, unspecified; K21.9 Gastro-esophageal reflux disease without esophagitis; E78.00 Pure hypercholesterolemia, unspecified; E11.9 Type 2 diabetes mellitus without complications; Z88.6 Allergy status to analgesic agent; Z88.0 Allergy status to penicillin; Z88.2 Allergy status to sulfonamides; Z88.8 Allergy status to other drugs, medicaments and biological substances
CPT/HCPCS: 99283

== ENCOUNTER 2023-06-10 12:06 | Inpatient (IN) | payer OTHER ==
--- OUTSIDE RECORDS SUMMARY | 2023-06-10 12:13 | XMS REPORT | Continuity of Care Document ---
:1955 Author Organization [facility] t Address [address] [facility] [address] [place] [id number] Care Team Providers Name Role Phone GomezTip Attending Clinician Unavailable Kayce Sotelo Attending Clinician Unavailable Will Shah Attending Clinician Unavailable Lawrence Attending Clinician Unavailable Tate Longoria Attending Clinician [phone] CLAUS KING Attending Clinician Unavailable Cruz Durbin Attending Clinician Unavailable Will Shah Admitting Clinician Unavailable Lawrence Admitting Clinician Unavailable Physician, No Primary or Family Admitting Clinician Unavaila ble Payers Payer Name Policy Type Policy Effective Date Expiration Date Sour ce Number MEDICARE B-[place]: [id number] 2021 [employer] 00:00:00 [employer] [place] [id number] 2022 [facility] 00:00:00 STAR (MEDICAID HMO) CGS (MEDICARE DME [id number] 2021 [facility]) 00:00:00 [employer] JOVANNA 2 [id number] [facility] - [facility] UMR [id number] AETNA 53 [id number] 2011 [facility] 00:00:00 - [facility] AETNA 53 [id number] [facility] Problems Condition Condition Condition Status Onset Resolution Last Treating Co mments Source Name Details Category Date Date Treatment Clinician Date Osteoarthr Osteoarthr Problem Active A zalea itis of itis of 6-17 Orth[facility] left knee Left Knee 00:00: dic joint Joint 00 Sports Medicin e Prolapsed Prolapsed Problem Active Aza daniel lumbar Lumbar 8-08 Orth[facility] interverte Interverte 00:00: di c bral disc bral Disc 00 Spor ts Medicin e Displaceme Displaceme Problem Active A zalea 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 nt of 8-08 [facility] lumbar Lumbar 00:00: dic interverte Interverte 00 Sp orts bral disc bral Disc 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 8-08 Or thope sthesis sthesis 00:00: dic 00 Sports Medicin e Carpal Carpal Problem Active 2014-10 Pam tunnel 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 00:00: dic 00 Sports Medicin e Osteoarthr Osteoarthr Problem Active 2014-10 A uzairlea osis of osis of 0-13 Orthope the [...] Synovitis Problem Active Aza daniel and and 07-13 Orthope tenosynovi Tenosynovi 00:00: di c tis tis 00 Sports Medicin e Ganglion Ganglion Problem Active Azale a of wrist of Wrist 07-13 Orthop e 00:00: dic 00 Sports Medicin e [id number] Mixed Problem Common stress and Spirit urge - [facility] urinary [facility] [id number] Productive Problem Com mon cough Spirit - [facility] [id number] Other Problem Common chronic Spirit pain - [facility] [id number] Wheezing Problem Commo n Spirit [facility] [id number] Essential Problem Comm on hypertensi Spirit on - [facility] [id number] Gastroesop Problem Co mmon hageal Spirit reflux - CHI disease [facility] esophagiti Medica s [place]iv[place] [id number] 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[facility] major [facility], [facility] whether recurrent [id number] Seasonal Problem Comm on allergic Spirit rhinitis, - [facility]I unspecifie [facility] [id number] Upper Problem Common respirator Spirit y tract - CHI infection, [facility] [id number] Bronchitis Problem Com mon Spirit - [facility] [id number] Anxiety Problem Common [facility] Allergic Non-season Problem Com mon rhinitis al Spirit allergic - CHI rhinitis, [facility] [id number] Other Problem Common obesity Spirit due to - [facility]I excess [facility] [id number] Body mass Problem Com mon index Spirit [BMI] - CHI 34.0-34.9, [facility] [id number] Low back Problem Comm on pain Spirit - [facility] [id number] Nausea Problem [facility] [id number] Mixed Problem Common hyperlipid Spirit emia - [facility] [id number] Type 2 Problem Common diabetes Spirit mellitus - [facility]I with [facility] long-term current use of insulin Allergies, Adverse Reactions, Alerts Allergy Allergy Status Severity Reaction(s) Onset Inactive Treating Comm ents Source Name Type Date Date Clinician Penicill DA Active MO VOMITING/PAT HC A ins LUCINATION 06-08 [place] 00:00: [facility]ope 00 dic Hospita [facility] Sulfa DA Active MO HIVES AND HCA (Sulfona EVEN PASSED 8-16 [place] 00:00: Orthope Antibiot 00 dic ics) Hospita l Statins- DA Active SV JOINT PAIN/ HCA HMG-CoA LIVALO OK TO 8-16 Ar as [place] TAKE (NO 00:00: Orthop e e REACTION) 00 dic Inhibito Hospita r l codeine DA Active MO HALLUCINATE/ HCA VOMITING 06-08 00:00: Orthope 00 dic Hospita l nitrofur DA Active MO HIVES HCA antoin 06-08 00:00: Orthope 00 dic Hospita l Statins- DA Active SV JOINT PAIN/ HCA HMG-CoA LIVALO OK TO 6-26 Ar as [place] TAKE (NO 00:00: Orthop e e REACTION) 00 dic Inhibito Hospita r l Penicill DA Active MO VOMITING/PAT HC A ins LUCINATION 04-18 00:00: Orthope 00 dic Hospita l Sulfa DA Active MO HIVES AND HCA (Sulfona EVEN PASSED 6 Ar as mide OUT 00:00: Orthope Antibiot 00 dic ics) Hospita l codeine DA Active MO HALLUCINATE/ HCA VOMITING 04-18 00:00: Orthope 00 dic Hospita l penicill DA Active MO HIVES/HALLUC HC A in [place]/VOMI [place] 00 dic Hospita l nitrofur DA Active MO HIVES HCA antoin 04-18 [place] 00:00: Orthope 00 dic Hospita l meloxica DA Active MO HCA m 06-23 [place] 00:00: [facility] Penicill DA Active MO VOMITING/PAT HC A ins LUCINATION 06-23 00:00: [address] Sulfa DA Active MO HIVES AND HCA (Sulfona EVEN PASSED 06-23 [place] 00:00: [place] Antibiot 00 Medical ics) Center codeine DA Active MO HALLUCINATE/ HCA VOMITING 06-23 00:00: [address] penicill DA Active MO HIVES/HALLUC HC A in G INATION/VOMI 8-31 [place] 00:[place]: [address] meloxica DA Active MO FEELS HCA m WEIRD/VOMITI 06-23 [place] 00:[place]: [address] Mobic Allergy Active Pam to 5-05 Orthope substanc 00:00: dic e 00 Sports [...] nitrofur Active Unknown Commo n antoin antoin [facility] codeine codeine Active Hallucinatio Co mmon n [facility] penicill penicill Active nausea and Co mmon amine amine vomiting [facility] [id number] Drug Active nausea and Common allergy vomiting [facility] Substanc Substanc Active Unknown Commo n e with e with [facility] jeni [facility] e and e and Medical antibact antibact Center erial erial mechanis mechanis m of m of action action (substan (substan ce) ce) Social History Social Habit Start Date Stop Date Quantity Comments Source History of Tobacco Use Co mmon [facility] Sex Assigned At Com mon [facility] Smoking Status Start Date Stop Date Source Never Smoker Common [facility] Medications Ordered Filled Start Stop Current Ordering Indication Dosage Frequency Signature Comments Components Source Medication Medication Date Date Medication? Clinician (SIG) Name Name methylPREDN methylPREDN 2021- No QD methylPRED ISolone 4 ISolone 4 [id number] NISolone 4 MG MG 00:00: 00:00 MG 00 :00 Azithromyci Azithromyci 2021- No QD Azithromyc n 250 MG n 250 MG 03-31-13 in 250 MG 00:00: 00:00 00 :00 [...] 00:00: 00 Omeprazole Omeprazole 2020-0 No QD 20 MG 20 MG 6-30 [...] e HCl 6.25 e HCl 6.25 6-30 07-07 s_neede ne HCl MG/5ML MG/5ML 00:00: 00:00 d} 6.25 00 :00 MG/5ML Promethazin Promethazin 2020-0 202- No 10{ml_a TID Promethazi e HCl 6.25 e HCl 6.25 04-22 s_neede ne HCl MG/5ML MG/5ML 00:00: 00:00 d} 6.25 00 :00 MG/5ML Azithromyci Azithromyci 2020-0 1- No QD Azithromyc n 250 MG n 250 MG 04-22 in 250 MG 00:00: 00:00 00 :00 Azithromyci Azithromyci 2020-0 1- No QD Azithromyc n 250 MG n 250 MG 04-22 in 250 MG 00:00: 00:00 00 :00 Cefdinir Cefdinir 2020-2020- No Cefdinir 300 MG 300 MG 03-30 300 MG 00:00: 00:00 00 :00 Cefdinir Cefdinir 2020-0 1- No Cefdinir 300 MG 300 MG 03-30 300 MG 00:00: 00:00 00 :00 Promethazin Promethazin 2020-0 2020- No 10{ml_a TID Promethazi e HCl [...] t} 5 MG 00:00: 00 Ondansetron Ondansetron 2021-0 No [...] HCl 4 MG 00:00: 00 Lisinopril Lisinopril 1-0 No 1{table QD Lisinopril 5 MG 5 MG 5-26 t} 5 MG 00:00: 00 Ondansetron Ondansetron 2020-0 No 1{table Ondansetro HCl 4 MG HCl 4 MG 5-26 t} n HCl 4 MG 00:00: 00 diclofenac diclofenac 2018-1 No diclofenac Pam sodium 75 sodium 75 [...] TABLETS 00:00: TAKE d ic DIRECTED DIRECTED TABLETS S ports DIRECTED Medicin e Mobic [...] DIRECTED Medicin e Mobic 7.5 Mobic 7.5 2018-0 No Mobic 7.5 Pam mg tablet mg [...] susp RX by release e other MD nomi TINSLEY for susp RX by other MD Arzate Nexium No Nexium Pam Packet 10 Packet 10 7-23 Packet 10 [facility] mg granules mg granules 00:00: mg dic delayed delayed 00 granules Sport s release for release for delayed Medicin susp RX by susp RX by release e other MD nomi TINSLEY for susp RX by other Nextrino Nexium No Nexium Pam Packet 10 Packet 10 7-23 Packet 10 Orthope mg granules mg granules 00:00: mg dic delayed delayed 00 granules Sport s release for release for delayed Medicin susp RX by susp RX by release e other MD nomi TINSLEY for susp RX by other Livalo [...] 00 by other Sports MD Kianna english Livalo 1 mg Livalo 1 mg No Livalo 1 Pam tablet RX tablet RX 9-19 mg tablet Orthope by other by other 00:00: RX by dic 00 other MD Edil english metaxalone metaxalone No metaxalone Pam 800 mg 800 mg 9-19 800 mg Orthope tablet RX tablet RX 00:00: tablet RX dic by other by nomi TINSLEY 00 by other Sports MD Kianna english Livalo 1 mg Livalo 1 mg No Livalo 1 Pam tablet RX tablet RX 9-19 mg tablet Orthope by other MD by other 00:00: RX by dic 00 other MD Solo Medicin e metaxalone metaxalone No metaxalone Pam 800 mg 800 mg 07-12 800 mg Orthope tablet RX tablet RX 00:00: tablet RX dic by other MD by nomi TINSLEY 00 by other Edil TINSLEY Medicsharyn e albuterol albuterol No albuterol Pam sulfate HFA sulfate HFA sulfate Orthope 90 90 HFA 90 dic mcg/actuati mcg/actuati mcg/actuat Sports on aerosol on aerosol ion Med icin inhaler inhaler aerosol e PLEASE SEE PLEASE SEE inhaler ATTACHED ATTACHED PLEASE SEE FOR FOR ATTACHED DETAILED DETAILED FOR DIRECTIONS DIRECTIONS DETAILED DIRECTIONS azithromyci azithromyci No azithromyc Pam n 250 mg n 250 mg in 250 mg Or thope tablet tablet tablet dic DIRECTED 2 DIRECTED 2 DIRECTED 2 Sports TABS 1ST TABS 1ST TABS 1ST Med icin DAY AND 1 DAY AND 1 DAY AND 1 e TAB EVERY TAB EVERY TAB EVERY 24 HRS 24 HRS 24 HRS AFTER FOR AFTER FOR AFTER FOR NEXT 4 DAYS NEXT 4 DAYS NEXT 4 ORALLY ONCE ORALLY ONCE DAYS A DAY 5 A DAY 5 ORALLY DAY(S) DAY(S) ONCE A DAY 5 DAY(S) benzonatate benzonatate No benzonatat Pam 100 mg 100 mg e 100 mg Orthope capsule capsule capsule dic TAKE ONE TO TAKE ONE TO TAKE ONE Sports TWO TWO TO TWO Medicin CAPSULES BY CAPSULES BY CAPSULES e MOUTH EVERY MOUTH EVERY BY MOUTH 8 HOURS 8 HOURS EVERY 8 NEEDED FOR NEEDED FOR HOURS COUGHING COUGHING NEEDED FOR COUGHING benzonatate benzonatate No benzonatat Pam 200 mg 200 mg e 200 mg Orthope capsule capsule capsule dic TAKE 1 TAKE 1 TAKE 1 Sports CAPSULE CAPSULE CAPSULE Medicin NEEDED BY NEEDED BY NEEDED BY e MOUTH THREE MOUTH THREE MOUTH TIMES A DAY TIMES A DAY THREE NEEDED NEEDED TIMES A 14 DAY(S) 14 DAY(S) DAY NEEDED 14 DAY(S) bromphenira bromphenira No bromphenir Pam mine-pseudo mine-pseudo [...] e DIRECTED DIRECTED TWICE A DAY DIRECTED fluocinonid fluocinonid No fluocinoni Pam e 0.05 % e 0.05 % de 0.05 % Or thope topical topical topical dic solution solution solution Spo rts APPLY TO APPLY TO APPLY TO Med icin SCALP EVERY SCALP EVERY SCALP e DAY DAY EVERY DAY hydrochloro hydrochloro No hydrochlor Pam thiazide 25 [...] Sports BY MOUTH BY MOUTH TABLET BY Md dicin EVERY 8 EVERY 8 MOUTH e HOURS HOURS EVERY 8 NEEDED NEEDED HOURS NEEDED levofloxaci levofloxaci No levofloxac Pam n 500 mg n 500 mg in 500 mg Or thope tablet TAKE tablet TAKE tablet dic 1 TABLET BY 1 TABLET BY TAKE 1 Sports MOUTH EVERY MOUTH EVERY TABLET BY Medicin DAY FOR 10 DAY FOR 10 MOUTH e DAYS DAYS EVERY DAY FOR 10 DAYS lisinopril lisinopril No lisinopril Pam 5 mg [...] EVERY MOUTH EVERY TABLET BY Medicin DAY FOR 90 DAY FOR 90 MOUTH e DAYS 90 DAYS 90 EVERY DAY DAYS DAYS FOR 90 DAYS 90 DAYS metformin metformin No metformin Pam 500 mg [...] a dose in a dose Sports pack TAKE pack TAKE pack TAKE Medicin DIRECTED DIRECTED e BY PACKAGE BY PACKAGE DIRECTED BY MOUTH BY MOUTH BY PACKAGE WITH FOOD WITH FOOD BY MOUTH FOR 6 DAYS FOR 6 DAYS WITH FOOD FOR 6 DAYS metoprolol metoprolol No metoprolol Pam succinate succinate succinate Orthope ER 100 mg ER 100 mg ER 100 mg dic tablet,exte tablet,exte tablet,ext Sports nded nded ended Medicin release 24 release 24 release 24 e hr TAKE 1 hr TAKE 1 hr TAKE 1 TABLET BY TABLET BY TABLET BY MOUTH EVERY MOUTH EVERY MOUTH DAY DAY EVERY DAY Naprosyn Naprosyn No 1 BID Naprosyn Aza daniel 500 mg 500 mg 500 mg Orth[facility] tablet Take tablet Take tablet dic 1 tablet 1 tablet Take 1 Sport s twice a day twice a day tablet Medicin by oral by oral twice a e route for route for day by 30 days. 30 days. oral route for 30 days. omeprazole omeprazole No omeprazole Pam 20 mg [...] MOUTH EVERY MOUTH DAY DAY EVERY DAY pantoprazol pantoprazol No pantoprazo Pam e 40 mg e 40 mg le 40 mg Ortho pe tablet,mikal tablet,mikal tablet,del dic yed release yed release ayed S ports TAKE 1 TAKE 1 release Medicin TABLET(S) TABLET(S) TAKE 1 e DAILY BY DAILY BY TABLET(S) MOUTH TAKE MOUTH TAKE DAILY BY HALF HOUR HALF HOUR MOUTH TAKE BEFORE BEFORE HALF HOUR BREAKFAST BREAKFAST BEFORE OR FIRST OR FIRST BREAKFAST MEAL MEAL OR FIRST MEAL prednisone prednisone No prednisone Pam 10 mg [...] DAYS 7 DAYS NEEDED FOR 7 DAYS promethazin promethazin No promethazi Pam e-DM 6.25 e-DM 6.25 ne-DM 6.25 Orthope mg-15 mg/5 mg-15 mg/5 mg-15 mg/5 dic mL oral mL oral mL oral Sports syrup TAKE syrup TAKE syrup TAKE Medicin 5 ML BY 5 ML BY 5 ML BY e MOUTH EVERY MOUTH EVERY MOUTH 6 HOURS 6 HOURS EVERY 6 NEEDED FOR NEEDED FOR HOURS COUGH COUGH NEEDED FOR COUGH sertraline sertraline No sertraline Pam 100 mg [...] Medicin DAY DAY MOUTH e EVERY DAY azithromyci azithromyci No azithromyc Pam n 250 [...] TABLET DAYS DAYS DAILY FOR 4 DAYS benzonatate benzonatate No benzonatat Pam 100 mg 100 mg e 100 mg Orthope capsule capsule capsule dic TAKE ONE TO TAKE ONE TO TAKE ONE Sports TWO TWO TO TWO Medicin CAPSULES BY CAPSULES BY CAPSULES e MOUTH EVERY MOUTH EVERY BY MOUTH 8 HOURS 8 HOURS EVERY 8 NEEDED FOR NEEDED FOR HOURS COUGHING COUGHING NEEDED FOR COUGHING bromphenira bromphenira No bromphenir Pam mine-pseudo mine-pseudo [...] Sports BY MOUTH BY MOUTH TABLET BY Md dicin EVERY 8 EVERY 8 MOUTH e [...] MOUTH EVERY MOUTH DAY DAY EVERY DAY prednisone prednisone No prednisone Pam 10 mg [...] Medicin DAY DAY MOUTH e EVERY DAY azithromyci azithromyci No azithromyc Pam n 250 [...] TABLET DAYS DAYS DAILY FOR 4 DAYS benzonatate benzonatate No benzonatat Pam 100 mg 100 mg e 100 mg [facility] capsule capsule capsule dic TAKE ONE TO TAKE ONE TO TAKE ONE Sports TWO TWO TO TWO Medicin CAPSULES BY CAPSULES BY CAPSULES e MOUTH EVERY MOUTH EVERY BY MOUTH 8 HOURS 8 HOURS EVERY 8 NEEDED FOR NEEDED FOR HOURS COUGHING COUGHING NEEDED FOR COUGHING bromphenira bromphenira No bromphenir Pam mine-pseudo mine-pseudo [...] Sports BY MOUTH BY MOUTH TABLET BY Me dicin EVERY 8 EVERY 8 MOUTH e [...] Medicin DAY DAY MOUTH e EVERY DAY Acetaminoph Acetaminoph No Acetaminop en en hen [...] rine HCl 10 rine HCl 10 t_at_be macros HCl MG MG dtime_a 10 MG s_neede [...] MG ER 100 MG ER 100 MG Vitamin C Vitamin C No 1{table [...] le} 24HR 20 MG Sertraline Sertraline No 1{table QD Sertraline [...] 500 MG 500 MG t} 500 MG Magnesium Magnesium No Magnesium 400 MG [...] MG ER 100 MG Losartan Losartan No Losartan Potassium Potassium [...] thiazide 25 Othiazide MG MG 25 MG Acetaminoph Acetaminoph No Acetaminop en en hen Calcium + Calcium + No Calcium + [...] MG ER 100 MG ER 100 MG Biotin 5000 Biotin 5000 No Biotin 5000 Benzonatate Benzonatate No 1{capsu TID Benzonatat 100 MG 100 MG le_as_n e 100 MG eeded} Acetaminoph Acetaminoph No Acetaminop en en hen hydroCHLORO hydroCHLORO No 1{table QD hydroCHLOR thiazide 25 thiazide 25 t_in_th Othiazide MG MG e_morni 25 MG ng} hydrOXYzine hydrOXYzine No 1{table TID hydrOXYzin HCl [...] + No Calcium + D3 D3 D3 Metoprolol Metoprolol No 1{table QD Metoprolol Succinate Succinate t} Succinate ER 100 MG ER 100 MG ER 100 MG Montelukast Montelukast No 1{table QD Montelukas Sodium [...] MG MG dtime_a 10 MG s_neede d} Oxybutynin Oxybutynin 2020- No 1{table QD Oxybutynin Chloride ER Chloride ER 12 t} Chloride 10 MG 10 MG 00:00 ER 10 MG :00 Oxybutynin Oxybutynin 2020- No 1{table QD Oxybutynin Chloride ER Chloride ER 12 t} Chloride 10 MG 10 MG 00:00 ER 10 MG :00 Oxybutynin Oxybutynin 2020- No 1{table QD Oxybutynin Chloride ER Chloride ER 12-21 t} Chloride 10 MG 10 MG 00:00 ER 10 MG :00 Oxybutynin Oxybutynin 2020- No 1{table QD Oxybutynin Chloride ER Chloride ER 12 t} Chloride 10 MG 10 MG 00:00 ER 10 MG :00 Immunizations Ordered Immunization Filled Immunization Date Status Commen ts Source Name Name FLUZONE HIGH DOSE FLUZONE HIGH DOSE 2022-09-10 Completed [facility] OVER 65 OVER 65 08:40:00 - [facility] FLUZONE HIGH DOSE FLUZONE HIGH DOSE 2022-09-10 Completed [facility] OVER 65 OVER 65 08:40:00 - [facility] FLUZONE HIGH DOSE FLUZONE HIGH DOSE 2022-09-10 Completed [facility] OVER 65 OVER 65 08:40:00 - [facility] FLUZONE HIGH DOSE FLUZONE HIGH DOSE 2022-09-10 Completed [facility] OVER 65 OVER 65 08:40:00 - [facility] Prevnar 20 (PCV20) Prevnar 20 (PCV20) 2022-01-19 Completed [facility] 09:36:00 - [facility] Prevnar 20 (PCV20) Prevnar 20 (PCV20) 2022-01-19 Completed [facility] 09:36:00 - [facility] Prevnar 20 (PCV20) Prevnar 20 (PCV20) 2022-01-19 Completed [facility] 09:36:00 - [facility] Prevnar 20 (PCV20) Prevnar 20 (PCV20) 2022-01-19 Completed [facility] 09:36:00 - [facility] Prevnar 20 (PCV20) Prevnar 20 (PCV20) 2022-01-19 Completed [facility] 09:36:00 - [facility] Prevnar 20 (PCV20) Prevnar 20 (PCV20) 2022-01-19 Completed [facility] 09:36:00 - [facility] Prevnar 20 (PCV20) Prevnar 20 (PCV20) 2022-01-19 Completed [facility] 09:36:00 [facility] Prevnar 20 (PCV20) Prevnar 20 (PCV20) 2022-01-19 Completed [facility] 09:36:00 - [facility] Prevnar 20 (PCV20) Prevnar 20 (PCV20) 2022-01-19 Completed [facility] 09:36:00 [facility] Prevnar 20 (PCV20) Prevnar 20 (PCV20) 2022-01-19 Completed [facility] 09:36:00 - [facility] Prevnar 20 (PCV20) Prevnar 20 (PCV20) 2022-01-19 Completed [facility] 09:36:00 - [facility] Prevnar 20 (PCV20) Prevnar 20 (PCV20) 2022-01-19 Completed [facility] 09:36:00 - [facility] Prevnar 20 (PCV20) Prevnar 20 (PCV20) 2022-01-19 Completed [facility] 09:36:00 - [facility] Prevnar 20 (PCV20) Prevnar 20 (PCV20) 2022-01-19 Completed [facility] 09:36:00 - [facility] Flucelvax - Flucelvax - 2021-10-08 Completed [facility] multidose vial multidose vial 08:21:00 - [facility] Flucelvax - Flucelvax - 2021-10-08 Completed [facility] multidose vial multidose vial 08:21:00 - [facility] Flucelvax - Flucelvax - 2021-10-08 Completed [facility] multidose vial multidose vial 08:21:00 - [facility] Flucelvax - Flucelvax - 2021-10-08 Completed [facility] multidose vial multidose vial 08:21:00 - [facility] Flucelvax - Flucelvax - 2021-10-08 Completed [facility] multidose vial multidose vial 08:21:00 - [facility] Flucelvax - Flucelvax - 2021-10-08 Completed [facility] multidose vial multidose vial 08:21:00 - [facility] Flucelvax - Flucelvax - 2021-10-08 Completed [facility] multidose vial multidose vial 08:21:00 - [facility] Flucelvax - Flucelvax - 2021-10-08 Completed [facility] multidose vial multidose vial 08:21:00 - [facility] Flucelvax - Flucelvax - 2021-10-08 Completed [facility] multidose vial multidose vial 08:21:00 - [facility] Flucelvax - Flucelvax - 2021-10-08 Completed [facility] multidose vial multidose vial 08:21:00 - [facility] Flucelvax - Flucelvax - 2021-10-08 Completed [facility] multidose vial multidose vial 08:21:00 - [facility] Flucelvax - Flucelvax - 2021-10-08 Completed [facility] multidose vial multidose vial 08:21:00 - [facility] Flucelvax - Flucelvax - 2021-10-08 Completed [facility] multidose vial multidose vial 08:21:00 - [facility] Flucelvax - Flucelvax - 2021-10-08 Completed [facility] multidose vial multidose vial 08:21:00 - [facility] Flucelvax - Flucelvax - 2021-10-08 Completed [facility] multidose vial multidose vial 08:21:00 - [facility] Flucelvax - Flucelvax - 2021-10-08 Completed [facility] multidose vial multidose vial 08:21:00 - [facility] Flucelvax - Flucelvax - 2021-10-08 Completed [facility] multidose vial multidose vial 08:21:00 [facility] Pfizer COVID-19 Pfizer COVID-19 2021-05-24 Completed Comm on [facility] Vaccine Vaccine 08:25:00 - [facility] Pfizer COVID-19 Pfizer COVID-19 2021-05-24 Completed [facility] Vaccine Vaccine 08:25:00 - [facility] Pfizer COVID-19 Pfizer COVID-19 2021-05-24 Completed [facility] Vaccine Vaccine 08:25:00 - [facility] Pfizer COVID-19 Pfizer COVID-19 2021-05-24 Completed [facility] Vaccine Vaccine 08:25:00 [facility] Pfizer COVID-19 Pfizer COVID-19 2021-05-24 Completed [facility] Vaccine Vaccine 08:25:00 [facility] Pfizer COVID-19 Pfizer COVID-19 2021-05-24 Completed [facility] Vaccine Vaccine 08:25:00 - [facility] Pfizer COVID-19 Pfizer COVID-19 2021-05-24 Completed [facility] Vaccine Vaccine 08:25:00 - [facility] Pfizer COVID-19 Pfizer COVID-19 2021-05-24 Completed [facility] Vaccine Vaccine 08:25:00 [facility] Pfizer COVID-19 Pfizer COVID-19 2021-05-24 Completed [facility] Vaccine Vaccine 08:25:00 - [facility] Pfizer COVID-19 Pfizer COVID-19 2021-05-24 Completed [facility] Vaccine Vaccine 08:25:00 - [facility] Pfizer COVID-19 Pfizer COVID-19 2021-05-24 Completed [facility] Vaccine Vaccine 08:25:00 - [facility] Pfizer COVID-19 Pfizer COVID-19 2021-05-24 Completed [facility] Vaccine Vaccine 08:25:00 - [facility] Pfizer COVID-19 Pfizer COVID-19 2021-05-24 Completed [facility] Vaccine Vaccine 08:25:00 - [facility] Pfizer COVID-19 Pfizer COVID-19 2021-05-24 Completed [facility] Vaccine Vaccine 08:25:00 [facility] Pfizer COVID-19 Pfizer COVID-19 2021-05-24 Completed [facility] Vaccine Vaccine 08:25:00 [facility] Pfizer COVID-19 Pfizer COVID-19 2021-05-24 Completed [facility] Vaccine Vaccine 08:25:00 [facility] Pfizer COVID-19 Pfizer COVID-19 2021-05-24 Completed [facility] Vaccine Vaccine 08:25:00 [facility] Pfizer COVID-19 Pfizer COVID-19 2021-03-24 Completed [facility] Vaccine Vaccine 08:24:00 [facility] Pfizer COVID-19 Pfizer COVID-19 2021-03-24 Completed [facility] Vaccine Vaccine 08:24:00 [facility] Pfizer COVID-19 Pfizer COVID-19 2021-03-24 Completed [facility] Vaccine Vaccine 08:24:00 [facility] Pfizer COVID-19 Pfizer COVID-19 2021-03-24 Completed [facility] Vaccine Vaccine 08:24:00 - [facility] Pfizer COVID-19 Pfizer COVID-19 2021-03-24 Completed [facility] Vaccine Vaccine 08:24:00 [facility] Pfizer COVID-19 Pfizer COVID-19 2021-03-24 Completed [facility] Vaccine Vaccine 08:24:00 [facility] Pfizer COVID-19 Pfizer COVID-19 2021-03-24 Completed [facility] Vaccine Vaccine 08:24:00 [facility] Pfizer COVID-19 Pfizer COVID-19 2021-03-24 Completed [facility] Vaccine Vaccine 08:24:00 [facility] Pfizer COVID-19 Pfizer COVID-19 2021-03-24 Completed [facility] Vaccine Vaccine 08:24:00 [facility] Pfizer COVID-19 Pfizer COVID-19 2021-03-24 Completed [facility] Vaccine Vaccine 08:24:00 [facility] Pfizer COVID-19 Pfizer COVID-19 2021-03-24 Completed [facility] Vaccine Vaccine 08:24:00 [facility] Pfizer COVID-19 Pfizer COVID-19 2021-03-24 Completed [facility] Vaccine Vaccine 08:24:00 [facility] Pfizer COVID-19 Pfizer COVID-19 2021-03-24 Completed [facility] Vaccine Vaccine 08:24:00 [facility] Pfizer COVID-19 Pfizer COVID-19 2021-03-24 Completed [facility] Vaccine Vaccine 08:24:00 [facility] Pfizer COVID-19 Pfizer COVID-19 2021-03-24 Completed [facility] Vaccine Vaccine 08:24:00 [facility] Pfizer COVID-19 Pfizer COVID-19 2021-03-24 Completed [facility] Vaccine Vaccine 08:24:00 [facility] Pfizer COVID-19 Pfizer COVID-19 2021-03-24 Completed [facility] Vaccine Vaccine 08:24:00 [facility] Vital Signs Vital Name Observation Time Observation Value Comments Source height 2022-09-08 09:10:00 65 [in_i] Common [facility] weight 2022-09-08 09:10:00 205.5 [lb_av] [facility] temperature 2022-09-08 09:10:00 97.1 [degF] [facility] bmi 2022-09-08 09:10:00 34.19 kg/m2 [facility] oximetry 2022-09-08 09:10:00 94 % [facility] respiratory rate 2022-09-08 09:10:00 16 /min Comm on [facility] blood pressure 2022-09-08 09:10:00 129 mm[Hg] [facility] systolic [facility] blood pressure 2022-09-08 09:10:00 67 mm[Hg] [facility] diastolic [facility] height 2022-03-31 13:00:00 65 [in_i] [facility] weight 2022-03-31 13:00:00 220.2 [lb_av] [facility] temperature 2022-03-31 13:00:00 95.6 [degF] [facility] bmi 2022-03-31 13:00:00 36.64 kg/m2 [facility] height 2022-01-19 08:20:00 65 [in_i] [facility] weight 2022-01-19 08:20:00 222.4 [lb_av] [facility] bmi 2022-01-19 08:20:00 37.01 kg/m2 [facility] height 2022-01-19 08:00:00 65 [in_i] [facility] weight 2022-01-19 08:00:00 222.4 [lb_av] [facility] temperature 2022-01-19 08:00:00 98.0 [degF] [facility] bmi 2022-01-19 08:00:00 37.01 kg/m2 Common [facility] oximetry 2022-01-19 08:00:00 95 % Common [facility] respiratory rate 2022-01-19 08:00:00 18 /min Comm on [facility] blood pressure 2022-01-19 08:00:00 135 mm[Hg] Common [facility] - systolic [facility] blood pressure 2022-01-19 08:00:00 73 mm[Hg] Common [facility] - diastolic [facility] height 2021-10-08 08:00:00 65 [in_i] Common [facility] weight 2021-10-08 08:00:00 221.0 [lb_av] [facility] temperature 2021-10-08 08:00:00 96.7 [degF] [facility] bmi 2021-10-08 08:00:00 36.77 kg/m2 [facility] oximetry 2021-10-08 08:00:00 98 % [facility] respiratory rate 2021-10-08 08:00:00 18 /min [facility] on [facility] blood pressure 2021-10-08 08:00:00 125 mm[Hg] Common [facility] - systolic [facility] blood pressure 2021-10-08 08:00:00 72 mm[Hg] Common [facility] - diastolic [facility] height 2021-07-09 10:20:00 65 [in_i] Common [facility] weight 2021-07-09 10:20:00 224.4 [lb_av] [facility] temperature 2021-07-09 10:20:00 96.6 [degF] [facility] bmi 2021-07-09 10:20:00 37.34 kg/m2 [facility] oximetry 2021-07-09 10:20:00 95 % Common [facility] respiratory rate 2021-07-09 10:20:00 18 /min Comm on [facility] - [facility] blood pressure 2021-07-09 10:20:00 139 mm[Hg] [facility] - systolic [facility] blood pressure 2021-07-09 10:20:00 70 mm[Hg] [facility] - diastolic [facility] height 2021-04-22 15:30:00 65 [in_i] Common S pirit - [facility] weight 2021-04-22 15:30:00 228 [lb_av] Common S [facility] - [facility] bmi 2021-04-22 15:30:00 37.94 kg/m2 Common S pirit - [facility] blood pressure 2021-04-22 15:30:00 138 mm[Hg] [facility] - systolic [facility] blood pressure 2021-04-22 15:30:00 88 mm[Hg] [facility] - diastolic [facility] height 2021-03-30 16:00:00 65.00 [in_i] Common S pirit - [facility] weight 2021-03-30 16:00:00 228 [lb_av] Common S pirit [facility] bmi 2021-03-30 16:00:00 37.94 kg/m2 [facility] blood pressure 2021-03-30 16:00:00 138 mm[Hg] [facility] - systolic [facility] blood pressure 2021-03-30 16:00:00 87 mm[Hg] Common [facility] - diastolic [facility] Procedures This patient has no known procedures. Encounters Start End Encounter Admission Attending Care Care Encounter Source Date/Time Date/Time Type Type Clinicians Facility Department ID 2023-01-20 Outpatient Gomez, STKARLIELC STLC [id number] Common 11:01:01 [facility] [address] [facility] 2022-09-08 Outpatient Sotelo, STKARLIELC STLMLC [id number] Common 08:51:01 Avnee 59[address] [facility] 2022-09-06 Outpatient Sotelo, STLMLC STLMLC [id number] Common 11:11:01 Avnee [facility] 2022-01-19 Outpatient Sotelo, STLMLC STLMLC [id number] Common 08:06:02 Avnee [facility] 2022-01-15 Outpatient Sotelo, STLMLC STLMLC [id number] Common 10:11:02 Avnee [facility] 2022-01-11 Outpatient Sotelo, STLMLC STLMLC [id number] Common 11:53:01 Avnee [facility] 2021-11-18 Outpatient Sotelo, STLMLC STLMLC [id number] Common 14:26:36 Avnee [facility] 2021-11-18 Outpatient Sotelo, STLMLC STLMLC [id number] Common 14:24:53 Avnee [facility] 2021-11-18 Outpatient Sotelo, STLMLC STLMLC [id number] Common 13:43:56 Avnee 30165 [facility] 2021-11-18 Outpatient Sotelo, STLMLC STLMLC [id number] Common 13:35:15 Avnee 38490 [facility] 2021-11-18 Outpatient Sotelo, STLMLC STLMLC [id number] Common 13:32:13 Avnee 48001 [facility] 2021-11-18 Outpatient Sotelo, STLMLC STLMLC [id number] Common 13:30:12 Avnee 61677 [facility] 2021-11-18 Outpatient Sotelo, STLMLC STLMLC [id number] Common 13:11:07 Avnee 48539 [facility] 2021-11-18 Outpatient Sotelo, STLMLC STLMLC [id number] Common 13:02:46 Avnee 50834 [facility] 2021-11-18 Outpatient STLMLC STLMLC [id number] Common 13:00:34 51252 [facility] 2023-06-08 2023-06-09 Inpatient MIKE BorreroTO SURG [id number] [facility] 07:37:00 13:55:00 [facility] Swann [facility] 2023-05-30 2023-05-30 Outpatient FOG_Jhonatan AOSM AOSM [id number] Pam 00:00:00 00:00:00 Carmencita [id number] [facility] 2023-05-30 2023-05-30 Outpatient FOG_Jhonatan AOSM AOSM [id number] Pam 00:00:00 00:00:00 Carmencita [id number] [facility] 2023-05-27 2023-05-27 Outpatient FOG_Jhonatan AOSM AOSM [id number] Pam 00:00:00 00:00:00 Carmencita [id number] [facility] 2023-05-19 2023-05-19 Outpatient FOG_Jhonatan AOSM AOSM [id number] Pam 00:00:00 00:00:00 Carmencita [id number] [facility] 2023-04-27 2023-04-27 Outpatient MIKE BorreroTO RADI [id number] [facility] 14:17:00 14:17:00 Will Greco [facility] 2023-04-18 2023-04-18 Outpatient FOG_Jhonatan AOSM AOSM [id number] Pam 00:00:00 00:00:00 Carmencita [id number] [facility] 2023-04-18 2023-04-18 Outpatient FOG_Jhonatan AOSM AOSM [id number] Pam 00:00:00 00:00:00 Carmencita [id number] [facility] 2023-04-18 2023-04-18 Outpatient FOG_Jhonatan AOSM AOSM [id number] Pam 00:00:00 00:00:00 Carmencita [id number] [facility] 2023-04-18 2023-04-18 Outpatient FOG_Jhonatan AOSM AOSM [id number] Pam 00:00:00 00:00:00 Carmencita [id number] [facility] 2023-04-14 2023-04-14 Outpatient FAUSTINO Shah [id number] MIKE 16:47:00 16:47:00 Will Storey [facility] 2023-04-05 2023-04-05 Outpatient FOG_Jhonatan AOSM AOSM [id number] Pam 00:00:00 00:00:00 Carmencita [id number] [facility] 2023-04-05 2023-04-05 Outpatient FOG_Jhonatan AOSM AOSM [id number] Pam 00:00:00 00:00:00 Carmencita [id number] [facility] 2023-04-05 2023-04-05 Outpatient FOG_Jhonatan ALEXANDER AOSM [id number] Pam 00:00:00 00:00:00 Carmencita [id number] [facility] 2023-04-05 2023-04-05 Outpatient FOG_Jhonatan AOSM AOSM [id number] Pam 00:00:00 00:00:00 Carmencita [id number] [facility] 2023-01-17 2023-01-17 Tate Romero AOSM [place] - Ortho [id number] Pam 00:00:00 00:00:00 Nicolasa Longoria MD: [id number] F[facility]Ofc dic [facility] [place] [place] [place] [address] , Ph. [phone] 2022-11-16 2022-11-16 (TEL) STLC STLMLC [id number] Co mmon 00:00:00 00:00:00 [facility] 2022-11-08 2022-11-08 (TEL) STLMLC STLMLC [id number] Co mmon 00:00:00 00:00:00 [facility] 2022-09-23 2022-09-23 (TEL) STLC STLMLC [id number] Co mmon 00:00:00 00:00:00 [facility] - [facility] 2022-09-10 2022-09-10 (INJ) [facility] [id number] Co mmon 00:00:00 00:00:00 Injection Spir it - [facility] 2022-09-08 2022-09-08 OFFICE [facility] [id number] Co mmon 00:00:00 00:00:00 VISIT Spirit ESTAB PT - CHI LEVEL 4 [facility] 2022-09-08 2022-09-08 (TEL) [facility] [id number] Co mmon 00:00:00 00:00:00 [facility] - [facility] 2022-09-03 2022-09-03 Outpatient FOG_Jhonatan KHANSM AOSM [id number] Pam 00:00:00 00:00:00 Carmencita [id number] [facility] 2022-09-03 2022-09-03 Outpatient FOG_Jhonatan AOSM AOSM [id number] Pam 00:00:00 00:00:00 Carmencita [id number] [facility] 2022-09-03 2022-09-03 Outpatient FOG_Jhonatan AOSM AOSM [id number] Pam 00:00:00 00:00:00 Carmencita [id number] [facility] 2022-09-03 2022-09-03 Outpatient FOG_Jhonatan KHANSM AOSM [id number] Pam 00:00:00 00:00:00 Carmencita [id number] [facility] 2022-09-03 2022-09-03 Tate S AOSM [place] - Ortho [id number] Pam 00:00:00 00:00:00 Nicolasa Longoria MD: [id number] FOG_Ofc dic [facility], [place] [address] , Ph. [phone] 2022-08-30 2022-08-30 Outpatient FOG_Jhonatan KHANSM AOSM [id number] Pam 00:00:00 00:00:00 Carmencita [id number] [facility] 2022-08-23 2022-08-23 (TEL) STLC STLMLC [id number] Co mmon 00:00:00 00:00:00 [facility] 2022-05-21 2022-05-21 Outpatient FOG_Jhonatan ALEXANDER AOSM [id number] Pam 00:00:00 00:00:00 sonMiguel [id number] [facility] 2022-04-16 2022-04-16 Outpatient FOG_Jhonatan ALEXANDER AOSM [id number] Pam 04:31:00 04:31:00 sonMiguel [id number] [facility] 2022-04-09 2022-04-09 Outpatient FOG_Jhonatan ALEXANDER AOSM [id number] Pam 11:21:00 11:21:00 Carmencita [id number] [facility] 2022-04-09 2022-04-09 Tate Romero ERINSM [place] - Ortho [id number] Pam 00:00:00 00:00:00 Nicolasa Longoria MD: 7401 F[facility]Ofc dic [facility] [place] [place] [address] , Ph. [phone] 2022-04-09 2022-04-09 Outpatient BENJAMIN Longoria [id number] 00:00:00 00:00:00 Tate Romero [id number] 2022-03-31 2022-03-[address] [id number] Co mmon 00:00:00 00:00:00 VISIT EST Spir it PT LEVEL 3 [facility] 2022-03-29 2022-03-29 Outpatient FOG_Jhonatan ALEXANDER AO [id number] Pam 12:29:00 12:29:00 Carmencita [id number] [facility] 2022-03-16 2022-03-16 (TEL) STLC STLC [id number] Co mmon 00:00:00 00:00:00 [facility] 2022-03-16 2022-03-16 (TEL) STLMLC STLMLC [id number] Co mmon 00:00:00 00:00:00 [facility] 2022-03-10 2022-03-10 (TEL) STLMLC STLMLC [id number] Co mmon 00:00:00 00:00:00 [facility] 2022-01-20 2022-01-20 (TEL) STLMLC STLMLC [id number] Co mmon 00:00:00 00:00:00 [facility] 2022-01-19 2022-01-19 WELCOME TO STLMLC STLMLC [id number] Common 00:00:00 00:00:00 MEDICARE Rudi badillo PREV Y - CHI EXAM [facility] 2022-01-19 2022-01-19 OFFICE STLMLC STLMLC [id number] Co mmon 00:00:00 00:00:00 VISIT [facility] PT - CHI LEVEL 4 [facility] 2021-11-17 2021-11-17 (TEL) STLMLC STLMLC [id number] Co mmon 00:00:00 00:00:00 [facility] 2021-11-13 2021-11-13 (TEL) STLMLC STLMLC [id number] Co mmon 00:00:00 00:00:00 [facility] 2021-10-08 2021-10-08 PREV VISIT STLMLC STLMLC [id number] Common 00:00:00 00:00:00 EST AGE [facility] [id number] - [facility] 2021-07-09 2021-07-09 OFFICE STLMLC STLMLC [id number] Co mmon 00:00:00 00:00:00 VISIT [facility] ESTAB PT - CHI LEVEL 4 [facility] 2021-05-28 2021-05-28 (TEL) STLMLC STLMLC [id number] Co mmon 00:00:00 00:00:00 [facility] 2021-04-22 2021-04-22 OFFICE STLMLC STLMLC [id number] Co mmon 00:00:00 00:00:00 VISIT EST Spir it PT LEVEL 3 [facility] 2021-04-17 2021-04-17 (TEL) STLMLC STLMLC [id number] Co mmon 00:00:00 00:00:00 [facility] 2021-04-10 2021-04-10 (TEL) STLMLC STLMLC [id number] Co mmon 00:00:00 00:00:00 [facility] 2021-04-01 2021-04-01 (TEL) STLMLC STLMLC [id number] Co mmon 00:00:00 00:00:00 [facility] 2021-03-30 2021-03-30 OFFICE STLMLC STLMLC [id number] Co mmon 00:00:00 00:00:00 VISIT EST Spir it PT LEVEL 3 [facility] 2021-03-27 2021-03-27 Outpatient STLMLC STLMLC [id number] Common 00:00:00 00:00:00 [facility] 2021-03-19 2021-03-19 Outpatient STLMLC STLMLC [id number] Common 00:00:00 00:00:00 [facility] 2021-03-18 2021-03-18 Outpatient STLMLC STLMLC [id number] Common 00:00:00 00:00:00 [facility] 2021-03-04 2021-03-04 Outpatient STLMLC STLMLC [id number] Common 00:00:00 00:00:00 [facility] 2021-02-27 2021-02-27 Outpatient STLMLC STLMLC [id number] Common 00:00:00 00:00:00 [facility] 2020-08-20 2020-08-20 Outpatient [facility] 0302 [facility] 07:20:00 23:59:00 CLAUS 2020-05-21 2020-05-21 Outpatient MONTY De Los Santos [id number] [facility] 12:00:00 12:00:00 [facility] Results Test Description Test Time Test Comments Results Result Comments Source GLUBED 2023-06-08 09:41:00 Test Item Value Reference Range Interpretation Comme nts GLUBED (test code = GLUBED) 121 mg/dL 60-125 N - USG NDL PLACEMENT (Bxg/Asp)2023-04-27 16:01:00 [facility] 1955 Sex: F Patient Name: HAYDE ESQUIVEL Unit No: [id number] EXAMS: CPT CODE: [id number] USG NDL PLACEMENT (Bxg/Asp) 07654 INDICATION: Left knee pain. PROCEDURE: Ultrasound guided cryoanalgesia (Iovera) of the left anterior femoral cutaneous nerve, medial femoral cutaneous nerve, and the superior and inferior branches of the infrapatellar branch of the saphenous nerve. TOOTH CUTTER SPUR: Dr. Molina. MEDICATIONS: 1 % Lidocaine local anesthesia CONTRAST: None. COMPLICATION: None immediately evident. DESCRIPTION: After the procedure, including indication and potential complications had been discussed with thepatient and questions answered, written informed consent was obtained. The patient was then taken tothe ultrasound suite and placed on the table in supine position with their treatment leg fully extended. The skin of the left knee was evaluated sonographically. The skin over the anterior femoral cutaneous nerve, medial femoral cutaneous nerve, and the superior and inferior branches of the infrapatellar branch of the saphenous nerve was marked. The skin was then prepped and draped sterilely. A timeout was performed. After achieving 1% Lidocaine local anesthesia, the 55mm Smart Tip Iovera cryoanalgesia probe was inserted into the skin at the sites where the nerves had been identified by ultrasound, and the treatment was initiated. The duration of each treatment cycle was 1 minute and 10 seconds.The patent's skin was cleaned and the wound was covered with a band-aid. The patient was instructed to stand and mobilize the knee joint. No immediate complication were observed. The patient tolerated the procedure well and was subsequently discharged in stable condition with instructions for follow up. Preprocedural pain level: 8/ 10 Postprocedural pain level: 2/ 10 IMPRESSION: Cryoanalgesia of the left anterior femoral cutaneous nerve, medial femoral cutaneous nerve, and the superior and inferior branches of the infrapatellar branch of the saphenous nerve as above. at 1601 Reported and signed by: Thang Molina MD [facility] NAME: HAYDE ESQUIVEL [address] [facility] PHYS: Will Flores MD : 1955 AGE: 68 SEX: F [place] [address] LOC: Y.RAD PHONE #: [phone] EXAM DATE: 04/27/2023 STATUS: REG CLI FAX #: [phone] RAD #: D/C DT PAGE 1 Signed Report (CONTINUED) Patient Name: HAYDE ESQUIVEL Unit No: [id number] EXAMS: CPT CODE: [id number] USG NDL PLACEMENT (Bxg/Asp) 34133 (Continued) CC: Tate Longoria MD; Will Shah MD Technologist: ANTIONETTE NUNEZ RDMS, RVT Transcribed D/ (1601) tCATYL [facility] NAME: HAYDE ESQUIVEL [address] [facility] PHYS: Will Flores MD : 1955 AGE: 68 SEX: F [place] [address] LOC: Y.RAD PHONE #: [phone] EXAM DATE: 04/27/2023STATUS: REG CLI FAX #: [phone] RAD #: D/C DT PAGE 2 Signed Report Patient Name: HAYDE ESQUIVEL Unit No: [id number] EXAMS: CPT CODE: [id number] USG NDL PLACEMENT (Bxg/Asp) 34180 (Continued) Orig Print D/T: S: 04/27/2023 (1604) [facility] NAME: HAYDE ESQUIVEL [address] [facility] PHYS: Will Flores MD : 1955 AGE: 68 SEX: F [place], [place] [address] LOC: Y.RAD PHONE #: [phone] EXAM DATE: 04/27/2023 STATUS: REG CLI FAX #: [phone] RAD #: D/C DT PAGE 3 Signed ReportVITAMIN D 25-HYDROXY (TOTAL)2023-04-15 08:15:00 Test Item Value Reference Range Interpretation Comments VITAMIN D 33.3 ng/mL 30.0-100.0 Vitamin D defic iency has 25-HYDROXY (TOTAL) been defi bekah by the (test code = [place] [facility] icine and VITD25) an Endocrine So [facility] practice guidel ine as alevel of serum 25-OH vitamin D less than 20 ng/mL (1,2).The Endocrine Society went on to further define vitamin Dinsufficiency as a level between 21 and 29 ng/mL (2).1. IOM (Ins titute of Medicine). 2010 . Dietary reference intak es for calcium and D. Philippe [place]: [employer] .2. Ana MF, Petty NC, Joelle al ARREDONDO, et al. Evaluation, treatment, and prevention of vitamin D de ficiency: an Endocrine [facility] clinical practi ce guideline. JCEM . 2010; 96(7):1911-30.P erformed At: [facility] [address] [place], [place] [id number] Carlo Peralta MD Ph:[phone] GLYCOSYLATED HEMOGLOBIN (HA1C)2023-04-14 20:52:00 Test Item Value Reference Range Interpretation Comments GLYCOSYLATED 5.7 % 4.8-5.9 Any condition t hat shortens HEMOGLOBIN (HA1C) erythocyte survival or (test code = GLYHGB) decreas esmean erythrocyte age (e.g., beau very from acute blood los s,hemolytic anemai) will fa lsely lower HGBA1c resultsr egardless of the method used . HGBA1c results frompat ients with HbSS, HbCC and HbSc must be interpreted wit hcaution given the patho logical processes, incl uding anemia,increase d red cell turnover, trans fusion requirements, t hatadversely impact HGBA1c a s a marker of long-term glycemiccontrol . Alternative for ms of testing such as fructosaminesho uld be considered for these patients.Any co ndition that shortens erytho cyte survival or dec reasesmean erythrocyte age (e.g., recovery from a cute blood loss,hemolytic anemia) will falsely lower H GBA1c resultsregardle ss of the method used. HG BA1c results from patientswi th HbSS, HbCC, and HbSc must be interpreted wit h cautiongiven th e pathological pr ocesses, including anemi a,increased red cell turnov er, transfusion req uirements, thatadversely i mpact HGBA1c as a marker of long-term glycemiccontrol . Alternative for ms of testing such as fructosaminesho uld be considered for these patients.DONE A T: [facility] [address] [facility], [place], [place] [address] GLYCOSYLATED HEMOGLOBIN (HA1C)2023-04-14 20:51:00 Test Item Value Reference Range Interpretation Comments GLYCOSYLATED 5.7 % 4.8-5.9 N Any condition t hat shortens HEMOGLOBIN (HA1C) erythocyte survival or (test code = GLYHGB) decreas esmean erythrocyte age (e.g., beau very from acute blood los s,hemolytic anemia) will fa lsely lower HGBA1c resultsr egardless of the method used . HGBA1c results from anatoliy valero HbSS, HbCC, and HbSc must be interpreted with cautiongiven th e pathological pr ocesses, including anemi a,increased red cell turnov er, transfusion req uirements, thatadversely i mpact HGBA1c as a marker of long-term glycemiccontrol . Alternative for ms of testing such as fructosaminesho uld be considered for these patients. COMPREHENSIVE METABOLIC [id number] 13:39:00 Test Item Value Reference Range Interpretation Comments SODIUM (test code = 137 mmol/L 136-145 N NA) POTASSIUM (test code 4.5 mmol/L 3.5-5.1 N = K) CHLORIDE (test code 99.0 mmol/L 98-107 N = CL) CARBON DIOXIDE (test 29.7 mmol/L 21-32 N code = CO2) GLUCOSE (test code = 114 mg/dL 70-110 H GLU) BLOOD UREA NITROGEN 20 mg/dL 7-18 H (test code = BUN) GLOMERULAR 52.5 >60 The Glomerular FILTRATION RATE Filtration R ate is a (test code = GFR) calculated parameterbased on serum Creatinin e, patient age and sex. GFR valuesless than 60 mL/min/1.73 squ are meters are didi cative ofChronic Kidne y Disease. Values less than 15 mL/min/1.73squa re meters indicate Kidney failure. The calculation for GFR is based on the CK D-EPI (2020) calculat ion. This formulais race indifferent and is the recommended for homer for GFRby the N [facility] Foundati on for Adults.The GFR will not calculate i f the sex is unknown or if thepatient's ag e is <18 years. CREATININE (test 1.15 mg/dL 0.55-1.30 N code = CREAT) TOTAL PROTEIN (test 7.6 g/dL 6.4-8.2 N code = PROT) ALBUMIN (test code = 4.4 g/dL 3.4-5.0 N ALB) GLOBULIN (test code 3.2 g/dL 2.2-4.2 N = GLOB) ALBUMIN/GLOBULIN 1.4 0.7-2.0 N RATIO (test code = A/G) CALCIUM (test code = 8.7 mg/dL 8.2-10.1 N CA) BILIRUBIN TOTAL 1.20 mg/dL 0.2-1.00 H (test code = BILT) SGOT/AST (test code 16.0 U/L 15-37 N = AST) SGPT/ALT (test code 19.0 U/L 12-78 N = ALT) ALKALINE PHOSPHATASE 81 U/L 46-116 N TOTAL (test code = ALKP) THROMBOPLASTIN TIME [id number] 13:14:00 Test Item Value Reference Range Interpretation Comments PTT ACTIVATED (test 33.6 secs 25.1-36.5 N Please n ote new code = APTT) normal range. IS PATIENT ON ANTICOAGULANTS ? NHas Lab been notified if Patient is on Heparin Drip? NOIf Yes, orderCBC, OCCULT BLOOD, PT every other day NPROTHROMBIN TIME 2023-04-14 13:14:00 Test Item Value Reference Range Interpretation Comments PROTHROMBIN TIME 11.4 secs 9.4-12.5 N Please note new normal PATIENT (test code = range. PTP) INTERNATIONAL NORMAL 1.02 <2.0 RECOMME NDED THERAPEUTIC RATIO (test code = RANGE FOR ORAL INR) ANTICOAGULANTTR EATMENT: CONDITION INRPr ophylaxis of venous throm bosis in 2.0 - 3.0 high- risk medical or surg ical patientsTreatme nt of venous thrombos is 2.0 - 3.0Prevention o f embolism 2.0 - 3.0Prevention o f recurrent embol ism, or 3.0 - 4.5 patie nts with mechanical pros thetic intravascular v hudson IS PATIENT ON ANTICOAGULANTS ? NVas Lab been notified if Patient is on Heparin Drip? NOIf Yes, orderCBC, OCCULT BLOOD, PT every other day NCBC W/AUTO DIFF 2023-04-14 12:51:00 Test Item Value Reference Range Interpretation Comments WHITE BLOOD CELL (test code = WBC) 5.2 K/mm3 5.8-11.0 L RED BLOOD CELL (test code = RBC) 4.41 M/mm3 4.2-5.4 N HEMOGLOBIN (test code = HGB) 12.7 g/dL 12-16 N HEMATOCRIT (test code = HCT) 38.1 % 37-47 N MEAN CELL VOLUME (test code = MCV) 86 fL 80-98 N MEAN CELL HGB (test code = MCH) 28.8 pg 27-34 N MEAN CELL HGB CONCENTRATION (test 33.3 g/dL 30.8-34.1 N code = MCHC) RED CELL DISTRIBUTION WIDTH (test 14.2 % 11-16 N code = RDW) PLT (test code = PLT) 208 K/mm3 130-400 N MEAN PLATELET VOLUME (test code = 11.4 fL 8.9-12.1 N MPV) NEUTROPHIL % (test code = NT%) 66.9 % 45-70 N LYMPHOCYTE % (test code = LY%) 18.6 % 20-40 L MONOCYTE % (test code = MO%) 7.5 % 3-10 N EOSINOPHIL % (test code = EO%) 5.6 % 1-5 H BASOPHIL % (test code = BA%) 1.0 % 0.0-1.1 N NEUTROPHIL # (test code = NT#) 3.46 K/mm3 2.00-7.50 N LYMPHOCYTE # (test code = LY#) 0.96 K/mm3 1.50-4.00 L MONOCYTE # (test code = MO#) 0.39 K/mm3 0.2-0.8 N EOSINOPHIL # (test code = EO#) 0.29 K/mm3 0.04-0.4 N BASOPHIL # (test code = BA#) 0.05 K/mm3 0.02-0.10 N MANUAL DIFF REQUIRED (test code = NO MANUAL DIFF MDIFF) NUCLEATED RED BLOOD CELL (test 0 % 0-0 N code = NRBC) Notes Date/Time Note Provider Source 2023-06-09 07:56:00-00:00 [id number] [place] [id number] PATIENT NAME: HAYDE ESQUIVEL ADMIT NANCIE E: 06/08/23 ACCOUNT NO: [id number] ROOM NO: Y.316 AGE: 68 REPORT TYPE: OPERATIVE REPORT SEX: F ADMITTING PHYSICIAN:Will Shah MD ATTENDING PHYSICIAN:Will Shah MD OPERATION DATE: 06/08/2023 PREOPERATIVE DIAGNOSES: 1. Degenerative joint disease, left knee. 2. Degenerative joint disease, right knee. POSTOPERATIVE DIAGNOSES: 1. Degenerative joint disease, left knee. 2. Degenerative joint disease, right knee. PROCEDURES: 1. Left total knee arthroplasty. 2. Cortisone injection, right knee. SURGEON: Will Shah M.D. [employer] SECRETARY: KATELIN Murillo. ANESTHESIA: Spinal. ESTIMATED BLOOD LOSS: 75 mL. DRAINS: None. SPECIMENS: None. COMPLICATIONS: None. IMPLANTS: DePuy PFC Sigma si ze 4 narrow posterior stabilized femoral component, size 4 fixed bearing tibial tray with a short ce mented stem, 8 mm posterior stabilized tibial polyethylene insert, and 35 mm oval patella. 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 Cortisone injection was admi nistered in the patient's right knee. The right knee was sterilely prepped using alcohol swabs. The right knee was then injected in a sterile manner via a medial subpatellar approach using an 18-gauge needle. 80 mg of Depo-Medrol had been mixe d with 4 mL of normal saline. It was confirmed that both components were sterile and the dates on the vials indicated that they had not . The injection was administered with a 1.5-inch length 18-gauge diameter needle. Intraarticular placement of the injection was confirmed by PATIENT NAME: HAYDE ESQUIVEL tactile feel when the capsule was punctured and lack of resistance when the injection was performed. A Band-Aid was placed over the site of the injection. INDICATIONS FOR SURGERY: Left knee pain and arth ritis. Treatment options were discussed with the patient who voiced understand ing of the options and the planned procedure. The patient voiced understand ing of the risk of infection, damage to nerves or blood vessels with l oss of function, mechanical failure or loosening with need for revision surgery, blood clots possibly going to the lungs, possibly resulting in . These issues were discussed with the patient in the office prior to surgery. No warranty or g uarantee as to the outcome of the surgery was made. PROCEDURE IN DETAIL: The patient was identified in the preoperative holding area. All questions were ans wered. The patient's surgical site was appropriately marked under the patient's d irection and with the patient's consent. The patient was taken to the operating r oom where a timeout was performed prior to induction of anesthesia, ensuring that the patient was properly identified as the proper patient. After establishment of anesthesia, the left leg was prepped and draped sterilely. A surgical timeout was then initiated by the surgeon and performed under the direction of the c irculating nurse. It was confirmed that the marking of the surgical site was visible after prepping and draping of the extremity, that it was the proper patient, that x-rays with the patients name on it were displayed, that all necessary instruments were a vailable and open and all potentially necessary implants were available. I t was also confirmed that the instruments had been properly sterilized. Each m ember of the surgical team introduced themselves and de scribed their role in the surgical procedure. After the surgical timeout was completed, surgery was begun. With the knee in a flexed position an an terior longitudinal incision extending from approximately 6 cm proximal to the proximal pole of the patella, slightly medial to the midline, was e xtended distally for a length of approximately 15 to 20 cm to the region of the medial aspect of the tibial tubercle. The incision was carried through the skin and subcutaneous ti ssues and hemostasis was then obtained using electrocautery. A sterile tourniq uet was available, but the surgery was initially perfor med without a tourniquet. The tourniquet was only to be placed if there was excessive bleeding. A mid vastus approach was then performed by dividing the fibers of the vastus m edialis oblique one fingerbreadth proximal to the proximal pole of t he patella for a distance of approximately 6 cm. The inci cherry was then carried along the medial capsule along the medial border of the patella leaving an adeq uate cuff of tissue on the patella for later closure. The incision continued down along the medial border of the patellar tendon along the tibial tubercle. Hemostasis was again obtained. The anterior portion of the medial meniscus was excised using scalpel. The knee was then extended and release of the samina p MCL of the proximal medial tibia was performed using electrocautery under dir ect visualization as appropriate based on the patient's deformity. Hemostasis was again obtained with the knee in extension. Synovium was then excised from the an terior distal femur to allow referencing of the anterior tibial cortex for sizing of the femoral implant. The knee was then flexed and retractors were placed beneath the medial and lateral collateral ligament. A small portion of the fat pad was excised allow ing better exposure of the anterolateral portion of the tibia. The anterior portion of the lateral meniscus was then excised to allow placement of the femor al sizing guide beneath the PATIENT NAME: HAYDE ESQUIVEL femur. The femoral canal was then entered at the superomedial border of the intercondylar notch above the PCL. The femoral c anal was then suctioned, removing marrow fat to reduce the risk for fat e mbolization and the intramedullary cutting guide was placed and pinned for a 10-mm resection. With flexion contracture of greater than 10 degrees i n a knee without valgus deformity, an additional 2-mm resection was perf ormed. The distal femur was carefully cut using an oscillating saw u nder direct visualization. The femoral sizing guide was then used to size the distal fe mur and the appropriate size 4-in-1 cutting block was cho sen. After the 4-in-1 cutting block was pinned into place, the anterior femoral condyle was removed with careful protection of the anterior femur and surrounding soft tiss ues. The anterior chamfer cut was also made. It was verified that H ohmann retractors were adequately protecting the MCL and LCL as the posterior fem oral condyles were cut and the posterior chamfer cut was made. The 4-in-1 femoral cutting block was t hen removed. Marginal osteophytes on the femur were then removed. Attention was turned to the proximal tibia where the remaining portion of the medial meniscus was excised using electrocautery as was the remaining portion of the lateral meniscus. The anterior cruciate liga ment was cut with electrocautery. Hohmann retr actors were placed medial and lateral and the tibial cutting guide was placed to perform a 10-mm resection from the less-worn tibial plateau. The tibial cutting guide was pinned in place with 2 smooth pins. A third retractor was placed protecting the LCL as the proximal tibia was resected. Care was taken to resect up to , but not through the posterior tibial cortex to protect the posterior neurovascular st ructures. The tibial cutting guide was then removed and the wafer of bone res ected from the proximal tibia was removed using electrocautery and a r ongeur. Any remaining bone was removed using a three quarter-inch osteotome. Posterior femoral osteophytes were also removed using a three quarte r-inch osteotome followed by rongeur. Spacer blocks were then used to confirm th at the flexion and extension gaps were minimum of 8 to 10 mm in thickness and were well balanced. At tention was then turned to preparing the distal femur for the posterior-sta bilized implant. The Horner retractor was placed protect ing the proximal tibia and the femoral trial without the notch was placed on the distal femur and was centered appropriately in the notch that was marked to allow the notch cutting guide to be appropriately positioned in the medial and lateral width. The cutting guide was then pinned and the notch resection was performed using an t hin saw blade under direct visualization taking care not to undercut the fe moral condyles. The cutting guide was removed as was the block of deanna ne that was cut from the intercondylar notch. Attention was then turned to the tibia and the proximal tibia was exposed using 2 Hohmann retractors. The baseplate for the tibia of the appropriate size that obtained the greatest amount of cortical contact without overhang was positioned with appropriate rotational alignment, g enerally aligned with the medial third of the tibial tubercle. Afte r the tibial baseplate guide was pinned into place, the round S-ROM punch was used to remove bone fr om the area where the tibial stem would be implanted and the plug of bone removed from the proximal tibia was immediately impacted into the femoral ca nal to plug the distal femur to reduce intraoperative and postopera tive blood loss. The tibia was then prepared for the stem and keel of the tibial implant. The femoral trial was then placed and a trial reduction was performed. It was co nfirmed that the flexion and extension gaps were well balanced. If they were no t, the femoral component was downsized or additional bone was removed from the distal femur as appropriate to achieve PATIENT NAME: HAYDE ESQUIVEL excellent balance. The rotational alignment of t he tibial component was again confirmed to be appropriate or was adjusted as needed. The lugs for the pegs on the femoral implant were drilled and the knee wa s brought into extension for preparation of the patella. The patella was everted and [] were used to hold the patella in an everted manner. Synovium was then removed from the distal quadriceps tendon insertion to the proxi mal pole of patella to lessen the risk for postoperative patellar clunk syndrome. The a ppropriate thickness was then resected from the undersurface of the pa tella, ranging from 8 to 11.5 mm based on the diameter of the gomez lar component. The 3 peg holes were then drilled and a trial patellar implant was placed to ensure sa tisfactory tracking of the patella and to protect the p atella during cementation of the femoral and tibial implants. The knee was then brought into flexion a nd the patella was retracted laterally without eversion. A small step drill was used to drill any sclerotic bone to facilitate cement interdigitation. The distal fe mur and proximal tibia were prepared for cementation using pulsatile lavage to remove blood and fatty tissues to facilitate cement interdigitation. Suction was placed in the proximal tibia, which was packed with laparotomy sponge w hile 2 batches of CMW cement were mixed along with 1 gm of vancomycin . When the cement was slightly doughy, the preheated tibial implant was complet maxim dried and cement was placed on the undersurface of the tibia an d around the tibial stem and was also finger-packed into the proximal tibia. Care was taken to pack the cement into the trabecular bone of the proximal tibia to minimize l ipid extrusion during cementation. The tibial implant was then impacted into pl mic[place] and excess cement was removed. The Horner retractor was placed t o hold the tibial implant flush with the tibia while the femoral implant was cemented. The distal fem ur was again cleaned with a laparotomy sponge and cement was placed on the distal surface of the femur and the undersurface of the femoral componen t and the femoral implant was impacted into place. Excess cement wa s removed. The trial tibial insert was then placed. The knee was then brought into full extension an d once again it was verified that flexion and extension gaps were well balanc ed. If necessary, additional cement was removed from the margins of t he femoral component and the posterior aspect of the femur. The knee was maintained in extension as the patellar implant was cemented. The kn ee was then taken through a range of motion and the thickness of the final tibia l insert was then chosen and the tibial polyethylene implant was opened. The periarticular injection was then performed using 0.5% ropivacaine with epinephrine. Toradol was added to the injection if the patient's GFR was greater than 60 and if not 10 mg of morphine sulfate was added. As the cement was alcides dening, the knee was soaked with dilute Betadine for 90 seconds or more. Once the cement had hardened , the knee was thoroughly irrigated using pulsatile lavage with up to 3 li ters of normal saline. Once again, the posterior aspect of the knee was checked and any cement or debris was removed. The tibial polyethy elen insert was then locked into place. The capsule was then repaired using #1 Vicryl and #2 Quill. Subcutaneous tissues were meticulously closed in layer s using 0 and 2-0 Vicryl. The skin was closed using 3-0 nylon. A sterile compression bandage was placed. The patient was awoken by the anesthesia team and taken to the post anesth esia care unit in stable condition. POSTOPERATIVE PLAN: Weightbearing and range of m otion as tolerated. The skilled assistance of KATELIN Murillo was necessary during this PATIENT NAME: HAYDE ESQUIVEL surgical procedure. He assisted with every aspec t of the operation including, but not limited to, proper and safe positioning of the patient, obtaining adequate surgical exposure, manipulation of surgical instruments, the delicate task of the continual process of hemostasis duri ng the procedure. He is responsible for proper and safe manipulation of the surgical leg to allow visualization for me during surgery. His meticulous multi-layer closure of the surgical wound closure is es sential to proper wound healing and the reduction of post-operative infections and drainage. His assi stance allowed me to perform the most sensitive and techn ical portions of this operation using 2 hands, thus enhancing patient safety. This would not be poss ible without the help of a skilled assistant family teacher familiar with the proc edure and capable of safely performing the aforementioned tasks. Our facility i s not a teaching hospital and as such, no surgical residents or interns were available to assist. Dictated By: Will Shah MD Date Dictated: 06/09/2023 07:56:39 Date Transcribed: 06/09/2023 08:07:33 GWS/NAF Receipt ID: [id number] Authenticated by Will Shah MD On 04:42:03 PM at 0442 PATIENT NAME: HAYDE ESQUIVEL 2023-06-08 12:06:00-00:00 [facility] ([facility]) Brief Op Note REPORT#:[id number] REPORT STATUS: Signed DATE:06/08/23 TIME: 1206 PATIENT: HAYDE ESQUIVEL UNIT #: [id number] ROOM/BED: : 57 AGE: 68 SEX: F ATTEND: Federico Shah MD ADM AUTHOR: Will Shah MD * ALL edits or amendments must be made on the el ectronic/computer document * Op/Inv Proc Note - Brief Pre-procedure diagnosis: djd bilat knees Post-procedure diagnosis: same as pre procedure dx Procedures performed: lt tka, cortisone inj r knee Primary Surgeon: criss [employer] Shop Worker(s): martin Anesthesia: spinal anesthetic Findings: djd Complications: none Estimated blood loss in ml's: 75 Specimens removed/altered: none at 1207 RPT #:[id number] END OF REPORT 2023-04-14 12:20:00-00:00 [id number] [place] [address] PATIENT NAME: HAYDE ESQUIVEL ADMIT NANCIE E: ACCOUNT NO: [id number] ROOM NO: AGE: 68 REPORT TYPE: ELECTROCARDIOGRAM SEX: F ADMITTING PHYSICIAN: ATTENDING PHYSICIAN:Will Shah MD Order: [id number] Test Reason : PRE OP CLEARANCE HTN Test Date/Time Stamp: TueApr 14 2023 12:20:30 Blood Pressure : / mmHG Vent. Rate : 065 BPM Atrial Rate : 065 BPM P-R Int : 246 ms QRS Dur : 092 ms QT Int : 404 ms P-R-T Axes : 058 010 061 degree s QTc Int : 420 ms Sinus rhythm with 1st degree AV block T wave abnormality, consider anterior ischemia Abnormal ECG When compared with ECG of 11-JUN-2015 11:52, No significant change was found Confirmed by RYLIE STEWART MD ([id number]) on 04/18/2023 8:02:24 PM Referred By: Will Shah Confirmed by:RYLIE STEWART MD PATIENT NAME: HAYDE ESQUIVEL
[2023-06-10 13:18] LABS: Absolute Lymphocytes (CBC) 0.5 K/uL (0.7-4.9); Hematocrit 28.2 % (36.0-45.0); Lymphocytes % 6.6 % (15.3-44.8); MCV 85.4 fL (80-100); MPV 8.9 fL (7.6-11.3); Platelets 134 thou/uL (152-406)
[2023-06-10 13:19] LABS: Protime INR 1.12
--- NOTE | 2023-06-10 13:22 | RAD REPORT ---
EXAM DESCRIPTION: [facility]23 12:50 pm CLINICAL HISTORY: DYSPNEA COMPARISON: Chest Single View dated 03/30/2021; Chest Pa And Lat (2 Views) dated 11/14/2020 TECHNIQUE: Portable AP view of the chest. FINDINGS: Small patchy peripheral left mid to lower lung airspace opacity is new. Subtle hazy opacif ication near the lung bases bilaterally is favored to be artifactual, related to the degree of underp enetration. No pneumothorax or effusion. Mild central vascular crowding, may relate to a degree of de creased inspiratory effort. The heart size is at the upper limit of normal. Mediastinal contours are otherwise unchanged. IMPRESSION: Small patchy peripheral left mid to lower lung airspace opacity, could reflect atelectas is or early pneumonia.
[2023-06-10 13:24] LABS: SARS-CoV-2 Antigen Rapid Res Negative (Negative)
[2023-06-10 13:38] LABS: Albumin 2.9 g/dL (3.4-5.0); Bilirubin Direct 0.3 mg/dL (0-0.2); Bilirubin Indirect, Calculated 0.7 mg/dL (0.2-0.8); Potassium 3.4 mEq/L (3.5-5.1); Protein, Total 6.9 g/dL (6.4-8.2)
[2023-06-10 13:44] LABS: Troponin High Sensitivity 231.8 pg/mL (<58.9)
--- NOTE | 2023-06-10 14:40 | RAD REPORT ---
EXAM DESCRIPTION: CT - Chest For Pe Angio - 06/10/2023 1:50 pm CLINICAL HISTORY: DYSPNEA COMPARISON: Chest Single View dated 06/10/2023 TECHNIQUE: Thin axial CT images of the chest were obtained following administration of 100 mL Isovue 370 IV contrast. Multiplanar reconstructions, and maximum intensity projection reconstructions were generated and reviewed. Exam utilizes a protocol for optimal evaluation of pulmonary arterial tree. All CT scans are performed using dose optimization technique as appropriate and may include automated exposure control or mA/KV adjustment according to patient size. FINDINGS: Pulmonary arteries are normal. No emboli or other suspicious finding. No acute or signific ant aorta findings. Subsegmental left upper lobe atelectasis. No other suspicious mass or infiltrate in the lung parenchy ma. No pleural thickening or pleural effusion. No pneumothorax. Heart is mildly enlarged. No abnormal mediastinal or hilar masses or lymphadenopathy seen. No chest w all mass or abnormal axilliary lymphadenopathy. Mild dextroconvex midthoracic curvature. IMPRESSION: No evidence of acute central pulmonary emboli. No other acute findings in the chest. Left upper lobe atelectasis incidentally noted. Heart is mildly enlarged.
--- NOTE | 2023-06-10 15:03 | RAD REPORT ---
EXAM DESCRIPTION: US - Extrem Venous W Compress Pan - 06/10/2023 1:43 pm CLINICAL HISTORY: Swelling COMPARISON: None. TECHNIQUE: Real-time sonographic evaluation of the bilateral lower extremity deep venous systems was performed. FINDINGS: Normal compressibility, flow augmentation, phasic flow and spontaneous flow is identified in both the left and right lower extremity deep venous systems. No intraluminal filling defects seen. IMPRESSION: No DVT in either lower extremity.
--- NOTE | 2023-06-10 15:12 | EDPHYS ---
Physician Documentation [facility] Name: Hayde Esquivel Age: 68 yrs Sex: Female : 1955 Arrival Date: 06/10/2023 Time: 12:06 Bed 17 Private MD: RYAN Physician José Miguel Escobar HPI: 06/10 12:25 This 68 yrs old Female presents to ER via Wheelchair with complaints of Post Surgical jh7 Bleeding, Post Surgical Pain. 12:25 Onset: The symptoms/episode began/occurred 1 day(s) ago. Associated signs and symptoms: jh7 Pertinent positives: shortness of breath, Pertinent negatives: abdominal pain, chest pain, fever. 68-year-old female presents for postsurgical bleeding and shortness of breath. The patient reports that she had a left knee replacement this past Tuesday at [facility] by Dr. Will kahn. She states that she was discharged from the hospital yesterday. Upon arrival to PT today, she was sent to the ER due to an O2 sat of 75% to 80% on room air. She reports that this occurred in the hospital they stated it was due to her sleep apnea. Reports that she has saturated the dressing on her left knee and has increased pain. She was sent home with aspirin 81 mg daily and is not on any anticoagulation medication.. Historical: - Allergies: 12:25 Codeine; cm10 12:25 Macrodantin; cm10 12:25 Mobic; cm10 12:25 PENICILLINS; cm10 12:25 statins; cm10 12:25 Sulfa (Sulfonamide Antibiotics); cm10 - PMHx: 12:25 Anxiety; GERD; Hypercholesterolemia; Hypertensive disorder; NIDDM; cm10 - PSHx: 12:25 back sx; knee sx; Total abdominal hysterectomy; bladder suspension; cm10 - Immunization history:: Adult Immunizations unknown. - Social history:: Smoking status: Patient denies any tobacco usage or history of. ROS: 12:25 Eyes: Negative for injury, pain, redness, and discharge, Neck: Negative for injury, jh7 pain, and swelling, Cardiovascular: Negative for chest pain, palpitations, and edema, Abdomen/GI: Negative for abdominal pain, nausea, vomiting, diarrhea, and constipation, Back: Negative for injury and pain, Skin: Negative for injury, rash, and discoloration, Neuro: Negative for headache, weakness, numbness, tingling, and seizure. 12:25 Constitutional: Positive for fatigue. 12:25 Respiratory: Positive for shortness of breath. 12:25 MS/extremity: Positive for decreased range of motion, pain, swelling, tenderness, of the L knee, bleeding. 12:25 All other systems are negative. Exam: 12:25 Constitutional: This is a well developed, well nourished patient who is awake, alert, jh7 and in no acute distress. Head/Face: Normocephalic, atraumatic. Eyes: Pupils equal round and reactive to light, extra-ocular motions intact. Lids and lashes normal. Conjunctiva and sclera are non-icteric and not injected. Cornea within normal limits. Periorbital areas with no swelling, redness, or edema. Neck: Trachea midline, no thyromegaly or masses palpated, and no cervical lymphadenopathy. Supple, full range of motion without nuchal rigidity, or vertebral point tenderness. No Meningismus. Cardiovascular: Regular rate and rhythm with a normal S1 and S2. No gallops, murmurs, or rubs. Normal PMI, no JVD. No pulse deficits. Respiratory: Lungs have equal breath sounds bilaterally, clear to auscultation and percussion. No rales, rhonchi or wheezes noted. No increased work of breathing, no retractions or nasal flaring. Abdomen/GI: Soft, non-tender, with normal bowel sounds. No distension or tympany. No guarding or rebound. No evidence of tenderness throughout. Back: No spinal tenderness. No costovertebral tenderness. Full range of motion. Neuro: Awake and alert, GCS 15, oriented to person, place, time, and situation. Sensory grossly intact. 12:25 Musculoskeletal/extremity: ROM: limited active range of motion due to pain, Circulation is intact in all extremities. Severe pain noted. diffuse swelling of L knee with TTP. Dressing is saturated with blood.. 12:25 Skin: Appearance: Color: pale. 14:23 ECG was reviewed by the Attending Physician. kb Vital Signs: 12:22 BP 120 / 64; Pulse 110; Resp 20; Temp 99.1; Pulse Ox 78% on R/A; Weight 99.79 kg; cm10 Height 5 ft. 4 in. ; 12:26 Pulse Ox 92% on 4 lpm NC; cm10 13:00 BP 115 / 54; Pulse 94; Resp 18; Pulse Ox 92% on 3 lpm NC; eh3 14:00 BP 116 / 58; Pulse 92; Resp 18; Pulse Ox 94% on 3 lpm NC; eh3 15:00 BP 110 / 60; Pulse 96; Resp 18; Pulse Ox 96% on 3 lpm NC; eh3 16:00 BP 133 / 68; Pulse 93; Resp 18; Pulse Ox 95% on 3 lpm NC; eh3 17:00 BP 133 / 84; Pulse 97; Resp 18; Pulse Ox 95% on 3 lpm NC; eh3 18:00 BP 129 / 70; Pulse 95; Resp 18; Pulse Ox 95% on 3 lpm NC; 3 12:22 Body Mass Index 37.76 (99.79 kg, 162.56 cm) cm10 MDM: 12:07 Patient medically screened. [facility] 14:59 Differential diagnosis: pneumonia, pulmonary edema, PE. Data reviewed: vital signs, kb nurses notes. Consideration of Admission/Observation Patient was admitted/placed on observation. Escalation of care including admission/observation considered. Management of patient was discussed with the following: Hospitalist: Dr Simms accepts pt for admission. 15:10 Counseling: I had a detailed discussion with the patient and/or guardian regarding the kb historical points, exam findings, and any diagnostic results supporting the discharge/admit diagnosis, lab results, radiology results, the need for further work-up and treatment in the hospital. 06/10 12:28 Order name: Basic Metabolic Panel; Complete Time: 13:45 [facility] 06/10 12:28 Order name: CBC with Diff; Complete Time: 13:20 [facility] 06/10 12:28 Order name: LFT's; Complete Time: 13:45 [facility] 06/10 12:28 Order name: NT PRO-BNP; Complete Time: 13:45 [facility] 06/10 12:28 Order name: PT-INR; Complete Time: 13:20 [facility] 06/10 12:28 Order name: Troponin HS; Complete Time: 13:45 [facility] 06/10 12:28 Order name: SARS RAPID; Complete Time: 13:27 [facility] 06/10 13:45 Order name: Lactate w/ 2H reflex if indic.; Complete Time: 16:44 kb 06/10 13:45 Order name: Blood Culture Adult (2) kb 06/10 15:34 Order name: Basic Metabolic Panel EDMS 06/10 15:34 Order name: Basic Metabolic Panel EDMS 06/10 15:34 Order name: CBC with Automated Diff EDMS 06/10 15:34 Order name: CBC with Automated Diff EDMS 06/10 15:34 Order name: Troponin High Sensitivity EDMS 06/10 15:34 Order name: Troponin High Sensitivity; Complete Time: 17:36 EDMS 06/10 15:34 Order name: Troponin High Sensitivity EDMS 06/10 15:34 Order name: Troponin High Sensitivity EDMS 06/10 16:01 Order name: Vancomycin Level Trough EDMS 06/10 12:28 Order name: XRAY Chest (1 view); Complete Time: 13:27 [facility] 06/10 12:28 Order name: CT Chest For PE Angio; Complete Time: 14:43 [facility] 06/10 12:45 Order name: US Extremity Venous W Compression Pan; Complete Time: 15:10 [facility] 06/10 12:28 Order name: EKG; Complete Time: 12:29 [facility] 06/10 15:34 Order name: Regular [facility] 06/10 12:28 Order name: Cardiac monitoring; Complete Time: 13:12 [facility] 06/10 12:28 Order name: EKG - Nurse/Tech; Complete Time: 14:37 [facility] 06/10 12:28 Order name: IV Saline Lock; Complete Time: 13:12 [facility] 06/10 12:28 Order name: Labs collected and sent; Complete Time: 13:12 [facility] 06/10 12:28 Order name: O2 Per Protocol; Complete Time: 13:12 [facility] 06/10 12:28 Order name: O2 Sat Monitoring; Complete Time: 13:12 [facility] EC:23 Rate is 91 beats/min. Rhythm is regular. QRS [place] is Normal. [place] interval is prolonged kb at 210 msec. QRS interval is normal at 96 msec. QT interval is normal at 437 msec. Administered Medications: 16:00 Drug: levofloxacin IVPB 750 mg Volume: 150 ml; Route: IVPB; Infused Over: 90 mins; eh3 Site: right forearm; Disposition Summary: 06/10/23 15:11 Hospitalization Ordered Hospitalization Status: Inpatient Admission kb Provider: Lalo Simms Location: Telemetry/MedSurg (Inpatient) kb Condition: Stable kb Problem: new kb Symptoms: are unchanged kb Bed/Room Type: Standard kb Room Assignment: 413(06/10/23 17:02) ss Diagnosis - Pneumonia, unspecified organism kb - Hypoxia kb Forms: - Medication Reconciliation Form kb - SBAR form kb - Leadership Thank You Letter kb Signatures: Dispatcher [employer] EDMarta Lock, RN SURGERY-C RN SURGERY-Vanessa Stein, RN RN Angie Chakraborty RN RN 3 Rochelle Dowd [place] [address] Lian Campbell, RN RN cm10 Corrections: (The following items were deleted from the chart) 13:23 12:25 68-year-old female presents for postsurgical bleeding and shortness of breath. [facility] The patient reports that she had a left knee replacement this past Tuesday at [facility] by Dr. Will kahn. She states that she was discharged from the hospital yesterday. Upon arrival to PT today, she was sent to the ER due to an O2 sat of 75% to 80% on room air. She reports that this occurred in the hospital they stated it was due to her sleep apnea. Reports that she has saturated the dressing on her left knee and has increased pain.. [facility] 16:20 12:28 Wound Care ordered. [place] [id number] 17:02 15:11 kb ss
--- NOTE | 2023-06-10 15:12 | ER ---
Nurse's Notes [facility] Name: Hayde Esquivel Age: 68 yrs Sex: Female : 1955 Arrival Date: 06/10/2023 Time: 12:06 Bed 17 Private MD: Diagnosis: Pneumonia, unspecified organism;Hypoxia Presentation: 06/10 12:22 Chief complaint: Patient states: had left knee replacement on Tuesday and was cm10 discharged yesterday with some bleeding on dressing. pt states that she went to rehab today and had more bleeding noted on dressing. Pt states that they sent her in today for low O2 sats. Pt O2 sat on arrival to the ED was 78% on RA, pt placed on 3L NC. Coronavirus screen: Vaccine status: Patient reports receiving the 2nd dose of the covid vaccine. Ebola Screen: Patient denies travel to an Ebola-affected area in the 21 days before illness onset. No symptoms or risks identified at this time. Initial Sepsis Screen: Does the patient meet any 2 criteria? No. Patient's initial sepsis screen is negative. Does the patient have a suspected source of infection? No. Patient's initial sepsis screen is negative. Risk Assessment: Do you want to hurt yourself or someone else? Patient reports no desire to harm self or others. Onset of symptoms was June 10, 2023. 12:22 Method Of Arrival: Wheelchair cm10 12:22 Acuity: NATHAN 2 cm10 Historical: - Allergies: 12:25 Codeine; cm10 12:25 Macrodantin; cm10 12:25 Mobic; cm10 12:25 PENICILLINS; cm10 12:25 statins; cm10 12:25 Sulfa (Sulfonamide Antibiotics); cm10 - PMHx: 12:25 Anxiety; GERD; Hypercholesterolemia; Hypertensive disorder; NIDDM; cm10 - PSHx: 12:25 back sx; knee sx; Total abdominal hysterectomy; bladder suspension; cm10 - Immunization history:: Adult Immunizations unknown. - Social history:: Smoking status: Patient denies any tobacco usage or history of. Screenin:30 [facility] ED Fall Risk Assessment (Adult) Score/Fall Risk Level 0 - 2 = Low Risk. Abuse eh3 screen: Denies threats or abuse. Denies injuries from another. Nutritional screening: No deficits noted. Tuberculosis screening: No symptoms or risk factors identified. Assessment: 12:30 General: Appears in no apparent distress. uncomfortable, Behavior is calm, cooperative, eh3 appropriate for age. Pain: Complains of pain in left leg. Neuro: Level of Consciousness is awake, alert, obeys commands, Oriented to person, place, time, situation. Cardiovascular: Capillary refill < 3 seconds Patient's skin is warm and dry. Respiratory: Airway is patent Respiratory effort is even, unlabored, Respiratory pattern is regular, symmetrical. GI: Abdomen is round non-distended. Derm: Skin is pink, warm \T\ dry. Musculoskeletal: Circulation, motion, and sensation intact. 13:00 Reassessment: Patient appears in no apparent distress at this time. Patient and/or 3 family updated on plan of care and expected duration. Pain level reassessed. Patient is alert, oriented x 3, equal unlabored respirations, skin warm/dry/pink. 14:00 Reassessment: Patient appears in no apparent distress at this time. Patient and/or 3 family updated on plan of care and expected duration. Pain level reassessed. Patient is alert, oriented x 3, equal unlabored respirations, skin warm/dry/pink. 15:00 Reassessment: Patient appears in no apparent distress at this time. Patient and/or 3 family updated on plan of care and expected duration. Pain level reassessed. Patient is alert, oriented x 3, equal unlabored respirations, skin warm/dry/pink. 16:00 Reassessment: Patient appears in no apparent distress at this time. Patient and/or 3 family updated on plan of care and expected duration. Pain level reassessed. Patient is alert, oriented x 3, equal unlabored respirations, skin warm/dry/pink. 17:00 Reassessment: Patient appears in no apparent distress at this time. Patient and/or 3 family updated on plan of care and expected duration. Pain level reassessed. Patient is alert, oriented x 3, equal unlabored respirations, skin warm/dry/pink. 17:10 Reassessment: Failed attempt to call report to 4th floor, no answer to phone. [facility] 17:25 Reassessment: Failed attempt to call report to 4th floor, Ricci states that nurse Maxine [facility] is busy and will call back to receive report. 18:05 Reassessment: Nurse to nurse report received by Carolyn on 4th floor. eh3 Vital Signs: 12:22 BP 120 / 64; Pulse 110; Resp 20; Temp 99.1; Pulse Ox 78% on R/A; Weight 99.79 kg; cm10 Height 5 ft. 4 in. ; 12:26 Pulse Ox 92% on 4 lpm NC; cm10 13:00 BP 115 / 54; Pulse 94; Resp 18; Pulse Ox 92% on 3 lpm NC; eh3 14:00 BP 116 / 58; Pulse 92; Resp 18; Pulse Ox 94% on 3 lpm NC; eh3 15:00 BP 110 / 60; Pulse 96; Resp 18; Pulse Ox 96% on 3 lpm NC; eh3 16:00 BP 133 / 68; Pulse 93; Resp 18; Pulse Ox 95% on 3 lpm NC; eh3 17:00 BP 133 / 84; Pulse 97; Resp 18; Pulse Ox 95% on 3 lpm NC; eh3 18:00 BP 129 / 70; Pulse 95; Resp 18; Pulse Ox 95% on 3 lpm NC; eh3 12:22 Body Mass Index 37.76 (99.79 kg, 162.56 cm) cm10 ED Course: 12:07 Patient arrived in ED. ts1 12:07 Rochelle Dowd FNP is PHCP. jh7 12:07 José Miguel Escobar MD is Attending Physician. jh7 12:25 Triage completed. cm10 12:25 Arm band placed on Patient placed in an exam room, on a stretcher. cm10 12:30 Patient has correct armband on for positive identification. Placed in gown. Bed in low eh3 position. Call light in reach. Side rails up X2. Adult w/ patient. Provided Education on: Use of call williamson. Client placed on continuous cardiac and pulse oximetry monitoring. NIBP monitoring applied. Door closed. Noise minimized. Lights dimmed. Warm blanket given. 12:30 Inserted saline lock: 20 gauge in right forearm, using aseptic technique. Blood eh3 collected. 12:41 Angie Chakraborty, RN is Primary Nurse. eh3 12:51 XRAY Chest (1 view) In Process Unspecified. EDMS 12:59 PHCP role handed off by Rochelle Dowd FNP kb 12:59 Marta Sanderson FNP-C is PHCP. kb 13:45 US Extremity Venous W Compression Pan In Process Unspecified. EDMS 13:52 CT Chest For PE Angio In Process Unspecified. EDMS 15:11 Lalo Simms MD is Hospitalizing Provider. kb 17:35 No provider procedures requiring assistance completed. Patient admitted, IV remains in eh3 place. Administered Medications: 16:00 Drug: levofloxacin IVPB 750 mg Volume: 150 ml; Route: IVPB; Infused Over: 90 mins; 3 Site: right forearm; Medication: 17:35 VIS not applicable for this client. 3 Outcome: 15:11 Decision to Hospitalize by Provider. kb 18:30 Admitted to Tele accompanied by tech, via stretcher, room 413, Report called to [place] [id number] 18:30 Condition: stable 18:30 Instructed on the need for admit. 18:34 Patient [address] the ED[address] [facility] Signatures: Dispatcher [employer] EDRI Marta Sanderson, NORBERTO LARRYP-Angie Chau RN RN [facility] Rochelle Dowd FNP [employer]ER jh7 Ashleigh Salamanca PAS PAS ts1 Lian Campbell RN RN cm10 Corrections: (The following items were deleted from the chart) 12:26 12:22 Acuity: NATHAN 3 cm10 cm10 21:25 13:00 BP 115 / 54; Pulse 94bpm; Resp 18bpm; Pulse Ox 92% RA; [place] [id number] :25 14:00 BP 116 / 58; Pulse 92bpm; Resp 18bpm; Pulse Ox 94% RA; [place] [id number] :25 15:00 BP 110 / 60; Pulse 96bpm; Resp 18bpm; Pulse Ox 96% RA; [place] [id number] :25 16:00 BP 133 / 68; Pulse 93bpm; Resp 18bpm; Pulse Ox 95% RA; [place] [id number] 21:25 17:00 BP 133 / 84; Pulse 97bpm; Resp 18bpm; Pulse Ox 95% RA; [place] [id number]
[2023-06-10] MEDS ORDERED: ALBUTEROL 2.5 MG/3 ML NEB SOL NEB PRN (15:20)
--- NOTE | 2023-06-10 15:39 | P.HP ---
Certification for Inpatient Patient admitted to: Inpatient With expected LOS: >2 Midnights Practitioner: I am a practitioner with admitting privileges, knowledge of patient current condition, hospital course, and medical plan of care. Services: Services provided to patient in accordance with Admission requirements found in Title 42 Section 412.3 of the Code of Federal Regulations Patient History Date of Service: 06/10/23 Reason for admission: Pneumonia, respiratory failure with hypoxia, suspected sepsis, s/p TKR History of Present Illness: 68-year-old female patient was a total left knee replacement 3 days ago was evaluated in the emergency room for episode of hypoxia and suspected pneumonia. Patient was at physical therapy when she was noted to be lethargic and oxygen saturation was taken. She had oxygen saturation in the 70s so she was given oxygen and transferred to the emergency room. In the ED she had work-up for possible pulmonary embolism done and CTA pulmonary was negative for any embolus. She did have evidence of atelectasis and concerns for pneumonia. Patient was admitted for inpatient care for management of suspected sepsis secondary to pneumonia and respiratory failure with hypoxia secondary to pneumonia/atelectasis related to postoperative state. She denied overt episode of fever, chills, rigor, nausea, vomiting, diarrhea. Review of Systems General: Weakness Eyes: Unremarkable ENT: Unremarkable Respiratory: Shortness of Breath Cardiovascular: Unremarkable Gastrointestinal: Unremarkable Genitourinary: Unremarkable Musculoskeletal: Unremarkable Integumentary: Unremarkable Neurological: Unremarkable Physical Examination - Physical Exam General: Alert, Oriented x3 HEENT: Atraumatic, Normocephalic Neck: Supple Respiratory: Normal air movement Cardiovascular: Regular rate/rhythm, Normal S1 S2 Gastrointestinal: Soft and benign, Tenderness (in epigastrium) Musculoskeletal: Other (post op dressing noted over the left knee with bloody effluent.) Neurological: Normal speech, Normal strength at 5/5 x4 extr - Studies Laboratory Data (last 24 hrs) 06/10/23 06/10/23 06/10/23 13:08 13:08 13:08 WBC 7.50 Hgb 9.5 L Hct 28.2 L Plt Count 134 L PT 12.3 INR 1.12 Sodium 131 L Potassium 3.4 L BUN 19 H Creatinine 0.90 Glucose 126 H Total Bilirubin 1.0 AST 19 ALT 15 Alkaline Phosphatase 63 Assessment and Plan - Plan Pneumonia: Deemed nosocomial due to recent hospital stay We will continue empiric antibiotic of vancomycin and cefepime. Continue incentive spirometry. Continue inhalational therapy with albuterol and DuoNeb. Respiratory failure with hypoxia: Deemed secondary to complication of recent surgery. Breathing treatment and incentive spirometry to be continued. We will continue oxygen by nasal cannula and wean off as tolerated. Status post left knee replacement: Wound does have bloody effluent. We will have surgeon evaluate. Continue routine wound care Prophylaxis: Lovenox for DVT prophylaxis CODE STATUS: Full code Disposition: We will manage present nosocomial pneumonia and discharge and when she is deemed clinically stable and weaned off oxygen supplementation. Discharge Plan: Home - Advance Directives Does patient have a Living Will: No Does patient have a Durable POA for Healthcare: No
[2023-06-10] MEDS ORDERED: VANCOMYCIN 2.5 GM in NA CHLORIDE 0.9% 500 ML IVPB ONE (16:00)
[2023-06-10] MEDS: ENOXAPARIN 40 MG/0.4 ML SQ SCH (16:00)
[2023-06-10] MEDS: NA CHLORIDE 0.9% 1,000 ML IV SCH (16:00)
[2023-06-10] MEDS ORDERED: Levofloxacin 750mg IV 750 MG/150 ML BAG IV ONE (16:01)
[2023-06-10] MEDS: CEFEPIME 2 GM in NA CHLORIDE 0.9% 100 ML IV SCH (17:00)
[2023-06-10] MEDS ORDERED: NA CHLORIDE 0.9% 1,000 ML ONE (18:29)
[2023-06-10] MEDS ORDERED: CEFEPIME 2 GM VIAL ONE (18:29)
[2023-06-10] MEDS ORDERED: ENOXAPARIN 40 MG/0.4 ML SQ ONE (18:30)
[2023-06-10] MEDS ORDERED: NA CHLORIDE 0.9% 100 ML ONE (18:30)
[2023-06-10 19:30] VITALS: BMI 37.8
[2023-06-10] MEDS: IPRATROPIUM BROM 0.5MG/2.5ML NEB SCH (19:55)
[2023-06-10] MEDS: ONDANSETRON 4 MG/2 ML VIAL IV PRN (20:27)
[2023-06-10] MEDS: ACETAMINOPHEN 325 MG TABLET PO PRN (20:27)
[2023-06-11] MEDS: ACETAMINOPHEN 325 MG TABLET PO PRN (01:24)
[2023-06-11] MEDS: ONDANSETRON 4 MG/2 ML VIAL IV PRN ×2 (01:25→08:48)
[2023-06-11] MEDS: IPRATROPIUM BROM 0.5MG/2.5ML NEB SCH ×4 (01:40→19:25)
[2023-06-11 04:56] LABS: Absolute Lymphocytes (CBC) 0.4 K/uL (0.7-4.9); Hematocrit 29.2 % (36.0-45.0); Lymphocytes % 5.1 % (15.3-44.8); Platelets 152 thou/uL (152-406); RBC Red Blood Cell Count 3.44 M/uL (3.86-4.86)
[2023-06-11 05:10] LABS: Magnesium 1.8 mg/dL (1.6-2.4); Phosphorus 2.8 mg/dL (2.5-4.9); Potassium 3.3 mEq/L (3.5-5.1)
[2023-06-11] MEDS: NA CHLORIDE 0.9% 1,000 ML IV SCH ×2 (05:11→18:40)
[2023-06-11 05:43] LABS: Blood Morphology Comment NOT SEEN (NOT SEEN); Platelet Estimate ADEQ; White Blood Cell Scan OK (OK)
[2023-06-11] MEDS: CEFEPIME 2 GM in NA CHLORIDE 0.9% 100 ML IV SCH ×2 (08:26→21:21)
[2023-06-11] MEDS: ENOXAPARIN 40 MG/0.4 ML SQ SCH (08:26)
[2023-06-11] MEDS ORDERED: POTASSIUM CL SA 10 MEQ TAB PO ONE (09:00)
[2023-06-11] MEDS ORDERED: MAGNESIUM SULFATE 1 gm IVPB 1 GM/100 ML BAG IV ONE (09:00)
[2023-06-11] MEDS: CYCLOBENZAPRINE 10 MG TAB PO PRN (14:15)
--- NOTE | 2023-06-11 14:38 | P.PN ---
Subjective Date of Service: 06/11/23 Chief Complaint: Pneumonia, respiratory failure with hypoxia, suspected sepsis, s/p TKR Subjective: No new changes, Improving Physical Examination - Vital Signs Temperature: 97.8 F Blood Pressure: 138/64 Pulse: 90 Respirations: 18 Pulse Ox (%): 95 - Physical Exam General: Alert, Oriented x3 HEENT: Atraumatic, Normocephalic Neck: Supple Respiratory: Normal air movement Cardiovascular: Regular rate/rhythm, Normal S1 S2 Gastrointestinal: Soft and benign Musculoskeletal: No swelling, Other (post op dressing noted.) Neurological: Normal speech Assessment And Plan - Plan Pneumonia: Deemed nosocomial due to recent hospital stay. Improved clinical state. We will continue empiric antibiotic of vancomycin and cefepime. Continue incentive spirometry. Continue inhalational therapy with DuoNeb. Cultures presently negative so far. Respiratory failure with hypoxia: Deemed secondary to complication of recent surgery. Breathing treatment and incentive spirometry to be continued. We will continue oxygen by nasal cannula and wean off as tolerated. Status post left knee replacement: Wound is presently looking better. We will have surgeon evaluate. Continue routine wound care Prophylaxis: Lovenox for DVT prophylaxis CODE STATUS: Full code Disposition: We will manage present nosocomial pneumonia and discharge and when she is deemed clinically stable and weaned off oxygen supplementation.
[2023-06-11] MEDS ORDERED: VANCOMYCIN 1.75 GM in NA CHLORIDE 0.9% 500 ML IVPB SCH (16:00)
--- NOTE | 2023-06-11 18:18 | P.PN ---
Subjective Date of Service: 06/12/23 Chief Complaint: Pneumonia, respiratory failure with hypoxia, suspected sepsis, s/p TKR No acute events overnight. She reports that her breathing has gradually improved. Her SpO2 has improved to 96 % on 1.5 L nasal cannula. She reports having a scheduled left knee replacement on 06/08/2023. She had tolerated the procedure well, but became severely dyspneic on 06/10/2023 during physical therapy. Her troponin is elevated, but she denies any chest pain or palpitations. Appreciate Cardiology/Pulmonology recs. Review of Systems 10-point ROS is otherwise unremarkable Respiratory: Shortness of Breath Musculoskeletal: Leg Pain (left knee) Physical Examination - Vital Signs Temperature: 97.8 F Blood Pressure: 138/64 Pulse: 90 Respirations: 18 Pulse Ox (%): 95 - Physical Exam General: Alert, In no apparent distress, Oriented x3 HEENT: Atraumatic, Mucous membr. moist/pink, Sclerae nonicteric Neck: JVD not distended Respiratory: Diminished, Rhonchi/gurgles (faint bibasilar) Cardiovascular: No edema, Regular rate/rhythm, Normal S1 S2, No gallops, No rubs, No murmurs Gastrointestinal: Normal bowel sounds, Soft and benign, Non-distended, No tenderness, No rebound, No guarding Musculoskeletal: Other (left knee s/p replacement. Incision is clean, with mild serosanguinous drainage. No erythema or purulence noted.) Integumentary: No rashes Neurological: Normal speech, Normal affect Assessment And Plan - Plan # Acute Hypoxic Respiratory Failure suspect due to Post-Surgical Atelectasis Upon presentation, SpO2 was 78 % on room air. Currently, she is on 1.5 L nasal cannula, with improvement of her SpO2 readings to 96 %. - Evaluation thus far: - Procalcitonin = <0.05, making it unlikely to be bacterial pneumonia - Chest x-ray = "small patchy peripheral left mid to lower lung airspace opacity, could reflect atelectasis or early pneumonia." - CT chest angiogram = "no evidence of acute central pulmonary emboli. No other acute findings in the chest. Left upper lobe atelectasis incidentally noted. Heart is mildly enlarged." - Management plan: - Consulted Pulmonary Medicine and she was evaluated by Dr. Morton - recommendations appreciated - Recommends discontinuing antibiotics - Consulted Respiratory Therapy - Supplemental oxygen to maintain SpO2 > 92% - Encouraged incentive spirometry # Suspect Demand Ischemia (Type II Non-ST Segment Elevation Myocardial Infarction) due to above # Hypertension # Hyperlipidemia - Evaluation thus far: - EKG: without STEMI criteria, trend - Serial troponin: 231.8 -> 273.5 -> 225.0 -> 216.4 - Ordered transthoracic echocardiogram - Management plan: - Consult Cardiology - recommendations appreciated - Continue home aspirin, metoprolol, losartan - Statin not started due to allergy # S/P Left Knee Replacement on 06/08/2023 - Bilateral lower extremity Doppler = "no DVT in either lower extremity." - Minimal serosanguineous drainage noted - Orthopedic Surgery consulted - recommendations appreciated - Consult PT # Type II Diabetes Mellitus - Correction scale insulin Sebastian Copeland M.D.
[2023-06-11 20:16] LABS: Absolute Lymphocytes (CBC) 0.5 K/uL (0.7-4.9); Hematocrit 29.7 % (36.0-45.0); Lymphocytes % 7.6 % (15.3-44.8); MCV 85.1 fL (80-100); MPV 8.9 fL (7.6-11.3); Platelets 165 thou/uL (152-406); RBC Red Blood Cell Count 3.49 M/uL (3.86-4.86)
[2023-06-12] MEDS: IPRATROPIUM BROM 0.5MG/2.5ML NEB SCH ×2 (01:35→07:30)
[2023-06-12] MEDS: NA CHLORIDE 0.9% 1,000 ML IV SCH (06:52)
[2023-06-12] MEDS ORDERED: CYCLOBENZAPRINE 10 MG TAB PO PRN (07:24)
[2023-06-12] MEDS: ENOXAPARIN 40 MG/0.4 ML SQ SCH (08:38)
[2023-06-12] MEDS: ASPIRIN EC 81 MG TAB PO SCH (08:38)
[2023-06-12] MEDS: CEFEPIME 2 GM in NA CHLORIDE 0.9% 100 ML IV SCH (08:38)
[2023-06-12] MEDS: OXYBUTYNIN ER 5 MG TAB PO SCH (08:39)
[2023-06-12] MEDS: SERTRALINE HCL 100 MG TAB PO SCH (08:39)
[2023-06-12] MEDS: CYCLOBENZAPRINE 10 MG TAB PO PRN ×2 (08:39→20:33)
[2023-06-12] MEDS: LOSARTAN POTASSIUM 50 MG TABLET PO SCH (08:39)
[2023-06-12] MEDS: GABAPENTIN 300 MG CAP PO SCH ×3 (08:40→20:32)
[2023-06-12] MEDS: METOPROLOL XL 50 MG TAB PO SCH (08:40)
--- NOTE | 2023-06-12 09:22 | RAD REPORT ---
EXAM DESCRIPTION: RAD - Knee Left 3 View - 06/12/2023 9:13 am CLINICAL HISTORY: s/p left knee replacement COMPARISON: No comparisons FINDINGS/IMPRESSION: Status post left knee arthroplasty. No hardware complications. A moderate to la rge knee effusion is present which is nonspecific.
--- NOTE | 2023-06-12 09:31 | P.CNS ---
Date of Consult: 06/12/23 Reason for Consult: Hypoxemia Chief Complaint: Hypoxemia History of Present Illness: Patient is 68 years of age recently had a knee operation on Tuesday at the orthopedic clinic she went for rehab they found her to be hypoxic short of breath and appeared in the emergency room is never smoked shortness of breath since COVID last year of sleep apnea noncompliant is snoring excessive daytime somnolence denies any fever or chills no prior history of cardiopulmonary problems Allergies codeine Allergy (Verified 06/10/23 20:06) Shortness of breath nitrofurantoin [From Macrodantin] Allergy (Verified 06/10/23 20:06) Anaphylaxis Penicillins Allergy (Verified 06/10/23 20:06) Shortness of breath Oulmhyu-TEO-BaK Reductase Inhibitor Allergy (Verified 06/10/23 20:06) Hives Sulfa (Sulfonamide Antibiotics) Allergy (Verified 06/10/23 20:06) Anaphylaxis sulfamethoxazole [From Bactrim] Allergy (Verified 06/10/23 20:06) Rash trimethoprim [From Bactrim] Allergy (Verified 06/10/23 20:06) Rash meloxicam [From Mobic] Adverse Reaction (Verified 06/10/23 20:06) Nausea/Vomiting Home Medications: Biotin/Keratin [Biotin Plus Keratin Tablet] 1 each PO DAILY 06/10/23 Ca/D3/Mag Ox/Zinc/Fold Skiver/Timbo/Bor [Calcium 600-D3 Plus Caplet] 600 mg PO DAILY 06/10/23 Cyclobenzaprine [Flexeril*] 10 mg PO DAILY 06/10/23 Doxycycline Hyclate 100 mg PO BID 06/10/23 Gabapentin 300 mg PO TID 06/10/23 Losartan Potassium [Cozaar] 25 mg PO DAILY 06/10/23 Metformin HCl [Glucophage] 500 mg PO BEDTIME 06/10/23 Metoprolol Succinate 50 mg PO DAILY 06/10/23 Montelukast [Singulair*] 10 mg PO BEDTIME 06/10/23 Oxybutynin Chloride [Oxybutynin Chloride ER] 10 mg PO DAILY 06/10/23 Pitavastatin Calcium [Livalo] 2 mg PO BEDTIME 06/10/23 Sertraline [Zoloft] 100 mg PO DAILY 06/10/23 Tizanidine HCl 2 mg PO Q6HR PRN 06/10/23 Tramadol HCl [Ultram] 50 mg PO BID PRN 06/10/23 hydroCHLOROthiazide [Hydrochlorothiazide] 25 mg PO DAILY 06/10/23 - Past Medical/Surgical History Diabetic: Yes - Social History Alcohol use: No CD- Drugs: No Caffeine use: No Place of Residence: Home Review of Systems 10-point ROS is otherwise unremarkable Physical Examination Temp Pulse Resp BP Pulse Ox 97.6 F 85 17 153/97 H 96 06/12/23 04:00 06/12/23 08:40 06/12/23 04:00 06/12/23 08:40 06/12/23 04:00 General: Alert, In no apparent distress, Oriented x3 Neck: Supple Respiratory: Clear to auscultation bilaterally, Normal air movement Cardiovascular: No edema, Regular rate/rhythm, Normal S1 S2 Gastrointestinal: Normal bowel sounds, Soft and benign - Problems (1) Respiratory failure Current Visit: Yes Status: Acute Plan: Patient is 68 years of age admitted with hypoxemia and dyspnea shortly after operation last study this Tuesday regarding a left knee replacement history of sleep apnea noncompliant no other history of cardiopulmonary disorders no history of coronary artery disease denies any fever chills cough phlegm mild cardiomegaly patient probably has atelectasis postoperative no evidence of pulmonary emboli CT scan chest x-rays all reviewed chemistries reviewed no white count patient is mildly hypoxic CT scan is probably has underlying atelectasis recommend use of BiPAP watch in the hospital ambulate sickle therapy check room air blood gas daily room air pulse ox DC antibiotic Qualifiers: Chronicity: unspecified
[2023-06-12 11:34] LABS: Blood O2 Saturation 94.1 % (92-98.5)
--- NOTE | 2023-06-12 17:30 | CON ---
Reason For Consultation: Left knee, status post replacement 4 days prior at an outside facility. History Of Present Illness: Ms. Esquivel is a 68-year-old woman who underwent a total knee replacemen t at [facility] [place] [place] under the care of Dr. Will Shah. She presented last evening with shortness of breath and difficulty breathing. She was admitted to the emergency room. We were aske d to consult for this knee. The wound was inspected and found to be pristine, which certainly could be early to believe it was infected. Does not appear to be that the knee has anything to do with her current condition. We will be around if necessary. Otherwise follow up with Dr. Shah. We will r estart physical therapy. HOMERO/DEMETRICE Voice ID: [id number] Report ID: [id number]
--- NOTE | 2023-06-12 19:03 | P.PN ---
Date of Service: 06/13/23 Subjective: ROS: 10 point ROS as noted above, otherwise negative Physical Exam: Gen: Alert, Oriented, NAD HEENT: normal conjunctiva, sclera anicteric CV: regular rate & rhythm, no edema Pulm: non-labored respirations on 1.5L NC, Diminished, Rhonchi/gurgles Abd: soft, nontender, nondistended MSK: no joint tenderness Integumentary: left knee s/p replacement. Incision is clean, with mild serosanguinous drainage Neuro: normal speech, normal affect Problem List: 1. Acute Hypoxic Respiratory Failure suspect due to Post-Surgical Atelectasis 2. Suspect Demand Ischemia (Type II Non-ST Segment Elevation Myocardial Infarction) due to above 3. Hypertension 4. Hyperlipidemia 5. S/P Left Knee Replacement on 06/08/2023 6. DM2 PLAN Pulm consulted Recommends discontinuing antibiotics Encouraged incentive spirometry troponins elevated x44 Echo ordered Cardiology consulted Continue home aspirin, metoprolol, losartan Statin not started due to allergy Minimal serosanguineous drainage noted Orthopedic Surgery consulted PT consult Correction scale insulin VTE: Lovenox Code: Full Dispo: Home
[2023-06-12] MEDS: FUROSEMIDE 20 MG/ 2ML VIAL IV SCH (20:31)
[2023-06-12] MEDS: MONTELUKAST 10 MG TAB PO SCH (20:33)
[2023-06-12] MEDS: PITAVASTATIN CALCIUM 2 MG PO SCH (20:34)
[2023-06-12] MEDS ORDERED: METFORMIN HCL 500 MG TAB PO SCH (21:00)
--- NOTE | 2023-06-12 21:21 | CON ---
Date of Consultation: 06/12/2023 Reason For Consultation: Elevated troponin. History Of Present Illness: A 68-year-old female, status post recent total knee replacement, came in to the emergency room due to shortness of breath and low oxygen level. Patient was at [facility], noted to be lethargic with significant desaturation in the 70s. She had a workup for possible pu lmonary embolism that was negative in the emergency room. She had recent surgery and still cannot mo ve her left lower extremity. Past Medical History: Severe osteoarthritis, status post recent knee replacement. Medications: Refer reconciliation sheet for detailed list. Allergies: CODEINE, NITROFURANTOIN, AND PENICILLIN. Family History: No premature coronary artery disease or cancer. Social History: She does not smoke or drink. Does not use any drugs. Review of Systems: All systems reviewed were negative except as mentioned in the HPI. Physical Examination: Vital Signs: Reviewed. Head and Neck: Pupils are equal, reactive to light. Intact eye movements. No JVD. No cervical lym phadenopathy. Neck is supple. Thyroid is not enlarged. Lungs: Decreased breathing sounds. No accessory muscle use or muscle retraction. Heart: Regular rate and rhythm. No extra sounds. Abdomen: Soft, nontender. Bowel sounds positive. No organomegaly. No masses or hernia. No rigidi ty or rebound. Extremities: No clubbing, cyanosis. Intact pulses. Skin: No rash. Neurologic: Alert, awake. No acute focal deficits appreciated. Investigations: Troponin is 231 down to 216 and on the CTA of the lungs, there was no pulmonary embo shawna. There is some atelectasis bilaterally, but no obvious pneumonia. Her NT-proBNP is elevated at 2616. Assessment And Recommendation: 1.Shortness of breath and hypoxia. There is no pulmonary embolism by CT scan, but definitely this c ould be heart failure in nature. She has significant swelling in lower extremity. I recommend to pu t her on low-dose Lasix 20 mg IV q.12 hours and monitor BUN, creatinine, and electrolytes while doing so, and also obtain echocardiogram tomorrow morning. 2.Elevated troponin. This is likely demand and she claimed that she had a stress test being normal just very recently with Dr. Pearson as an assessment before the knee surgery that was negative and sh e does not have any chest pain. I will diurese her. Obtain an echo tomorrow and she definitely will need further ischemia evaluation once her condition is well situated and I recommend a coronary catie ogram since the stress test was negative recently. /DEMETRICE Voice ID: [id number] Report ID: [id number]
[2023-06-13] MEDS: TRAMADOL HCL 50 MG TAB PO PRN ×2 (06:19→17:07)
[2023-06-13 06:38] LABS: Absolute Lymphocytes (CBC) 0.7 K/uL (0.7-4.9); Hematocrit 30.3 % (36.0-45.0); MCV 84.9 fL (80-100); MPV 8.8 fL (7.6-11.3); Platelets 221 thou/uL (152-406); RBC Red Blood Cell Count 3.56 M/uL (3.86-4.86)
[2023-06-13] MEDS: ENOXAPARIN 40 MG/0.4 ML SQ SCH (07:57)
[2023-06-13] MEDS: GABAPENTIN 300 MG CAP PO SCH ×3 (07:57→21:32)
[2023-06-13] MEDS: hydroCHLOROthiazide 25 MG TAB PO SCH (08:02)
[2023-06-13] MEDS: FUROSEMIDE 20 MG/ 2ML VIAL IV SCH ×2 (08:02→16:57)
[2023-06-13] MEDS: ASPIRIN EC 81 MG TAB PO SCH (08:03)
[2023-06-13] MEDS: LOSARTAN POTASSIUM 50 MG TABLET PO SCH (08:03)
[2023-06-13] MEDS: METOPROLOL XL 50 MG TAB PO SCH (08:04)
[2023-06-13] MEDS: SERTRALINE HCL 100 MG TAB PO SCH (08:06)
[2023-06-13] MEDS: OXYBUTYNIN ER 5 MG TAB PO SCH (09:15)
--- NOTE | 2023-06-13 12:20 | P.PN ---
Subjective Date of Service: 06/13/23 Chief Complaint: Postoperative atelectasis Subjective: Improving (Is improving doing well we are oxygenation is satisfactory feeling better did not tolerate BiPAP) Review of Systems General: Weakness Respiratory: Shortness of Breath Physical Examination - Vital Signs Temperature: 97.2 F Blood Pressure: 121/61 Pulse: 82 Respirations: 16 Pulse Ox (%): 93 - Physical Exam General: Alert, Oriented x3 Respiratory: Clear to auscultation bilaterally, Diminished Cardiovascular: No edema, Normal pulses Assessment And Plan - Current Problems (Diagnosis) (1) Respiratory failure Current Visit: Yes Status: Acute Plan: Is improving from air oxygenation is now 95% most likely she had postoperative atelectasis no evidence of thromboembolism to ambulate patient has a history of obstructive sleep apnea. Patient will be outpatient sleep study Qualifiers: Chronicity: unspecified
[2023-06-13] MEDS ORDERED: CEFDINIR 300 MG CAP PO ONE (13:50)
[2023-06-13] MEDS: CYCLOBENZAPRINE 10 MG TAB PO PRN (17:06)
--- NOTE | 2023-06-13 18:07 | EKG ---
Test Date: 2023-06-10 Test Time: 14:11:20 Facilities Operator: TONO MEASUREMENT RESULTS: Intervals: Rate: 91 LA: 210 QRSD: 96 QT: 356 QTc: 437 [place]: P: 61 LA: 210 QRS: 47 T: 33 INTERPRETIVE STATEMENTS: Sinus rhythm with 1st degree AV block T wave abnormality, consider anterior ischemia Abnormal ECG Compared to ECG 11/07/2022 22:04:32 No significant changes Electronically Signed On 06-13-23 17:59:28 CDT by Mustapha Alva
[2023-06-13] MEDS: PITAVASTATIN CALCIUM 2 MG PO SCH (21:00)
[2023-06-13] MEDS: MONTELUKAST 10 MG TAB PO SCH (21:32)
[2023-06-14 06:56] LABS: Absolute Lymphocytes (CBC) 0.9 K/uL (0.7-4.9); Hematocrit 31.9 % (36.0-45.0); Lymphocytes % 11.7 % (15.3-44.8); MCV 84.9 fL (80-100); MPV 8.4 fL (7.6-11.3); Platelets 249 thou/uL (152-406); RBC Red Blood Cell Count 3.76 M/uL (3.86-4.86)
[2023-06-14 07:08] LABS: Potassium 4.1 mEq/L (3.5-5.1)
--- NOTE | 2023-06-14 08:10 | ECHO ---
HEIGHT: 5 ft 4 in WEIGHT: 220 lb 0 oz DATE OF STUDY: 06/13/[address]: Ricci Cordoba NP 2-DIMENSIONAL: YES M.MODE: YES DOPPLER: YES COLOR FLOW: YES TDS: NO PORTABLE: YES DEFINITY: NO BUBBLE STUDY: NO DIAGNOSIS: ELEVATED TROPONIN CARDIAC HISTORY: CATHERIZATION: NO SURGERY: NO PROSTHETIC VALVE: NO PACEMAKER: NO MEASUREMENTS (cm) DIASTOLIC (NORMALS) SYSTOLIC (NORMALS) IVSd 1.0 (0.6-1.2) LA Diam 3.4 (1.9-4.0) LVEF 67% LVIDd 4.9 (3.5-5.7) LVIDs 3.1 (2.0-3.5) %FS 37% LVPWd 1.2 (0.6-1.2) Ao Diam 2.4 (2.0-3.7) 2 DIMENSIONAL ASSESSMENT: RIGHT ATRIUM: NORMAL LEFT ATRIUM: NORMAL RIGHT VENTRICLE: NORMAL LEFT VENTRICLE: NORMAL TRICUSPID VALVE: MILD TR MITRAL VALVE: NORMAL PULMONIC VALVE: NORMAL AORTIC VALVE: NORMAL PERICARDIAL EFFUSION: NONE AORTIC ROOT: NORMAL LEFT VENTRICULAR WALL MOTION: NORMAL DOPPLER/COLOR FLOW: MILD TRICUSPID REGURGITATION. COMMENTS: 1. NORMAL LEFT VENTRICULAR EJECTION FRACITON 55-60% WITH NORMAL WALL MOTION. 2. GRADE I DIASTOLIC DYSFUNCTION. 3. MILD TRICUSPID REGURGITATION. TECHNOLOGIST: Agustina HAYNES
[2023-06-14 08:36] VITALS: O2SAT 96
[2023-06-14] MEDS: LOSARTAN POTASSIUM 50 MG TABLET PO SCH (08:42)
[2023-06-14] MEDS: SERTRALINE HCL 100 MG TAB PO SCH ×2 (08:42→08:44)
[2023-06-14] MEDS: METOPROLOL XL 50 MG TAB PO SCH (08:42)
[2023-06-14] MEDS: OXYBUTYNIN ER 5 MG TAB PO SCH (08:45)
[2023-06-14] MEDS: hydroCHLOROthiazide 25 MG TAB PO SCH (08:45)
[2023-06-14] MEDS: GABAPENTIN 300 MG CAP PO SCH (08:45)
[2023-06-14] MEDS: ASPIRIN EC 81 MG TAB PO SCH (08:45)
[2023-06-14] MEDS: ENOXAPARIN 40 MG/0.4 ML SQ SCH (08:46)
[2023-06-14] MEDS: FUROSEMIDE 20 MG/ 2ML VIAL IV SCH (08:46)
[2023-06-14 11:34] VITALS: BP 112/60; TEMP 97.4
== END 2023-06-14 11:56 | disposition home or self-care (01) | DRG 205 ==
LOC: ER 12:06 → ERHOLD 15:20 → 4TH 18:08
PROVIDERS: ADMIT Internal Medicine Nephrology; ATTEND Hospitalist
PROC: 5A09457 Assistance with Respiratory Ventilation, 24-96 Consecutive Hours, Continuous Positive Airway Pressure (ICD-10-PCS; principal; 2023-06-12)
DX: J95.89 Other postprocedural complications and disorders of respiratory system, not elsewhere classified (principal); I21.A1 Myocardial infarction type 2; J96.01 Acute respiratory failure with hypoxia; J18.9 Pneumonia, unspecified organism; J98.11 Atelectasis; I10 Essential (primary) hypertension; E11.9 Type 2 diabetes mellitus without complications; E78.00 Pure hypercholesterolemia, unspecified; K21.9 Gastro-esophageal reflux disease without esophagitis; Z88.5 Allergy status to narcotic agent; Z88.0 Allergy status to penicillin; Z88.8 Allergy status to other drugs, medicaments and biological substances; Z88.2 Allergy status to sulfonamides; Z86.16 Personal history of COVID-19; Z90.710 Acquired absence of both cervix and uterus; Z96.652 Presence of left artificial knee joint
CPT/HCPCS: 36415; 36600; 71045; 71275; 80048; 80076; 82805; 82947; 83605; 83735; 83880; 84100; 84145; 84484; 85025; 85610; 87040; 87811; 93005; 93306; 93970; 94010; 94640; 94660; 94760; 96374; 97116; 97161; 97530; 99285; J0692; J1650; J1940; J2405; J3475; J7030; J7040; J7613; J7644; Q9967